=== PATIENT | female | born 1965 | race Caucasian/White ===

== ENCOUNTER 2020-06-09 13:25 | Observation (INO) ==
[2020-06-09 13:52] LABS: Appearance Urine Clear (Clear); Bilirubin Urine Negative (Negative); Blood Urine 3+ (Negative); Color Urine Yellow; Epithelial Cell Urine Auto >30 /lpf (0-5); Glucose Urine UA Negative (Negative); Ketones Urine Negative (Negative); Leukocyte Esterase Urine Negative (Negative); Nitrite Urine Negative (Negative); Protein Urine 2+ (Negative); Specific Gravity Urine 1.011 (1.000-1.030); Urobilinogen Urine Negative (Negative); pH Urine 6.5 (4.5-7.5)
[2020-06-09 14:18] LABS: Bacteria Urine Automated 1+ (Negative)
[2020-06-09] MEDS ORDERED: SODIUM CHLORIDE 0.9% 1000ML 1,000 ML IV ONE (14:59)
[2020-06-09] MEDS ORDERED: MoRPHine SULFATE 10 MG/ML CARP/VIAL IV STA ×3 (14:59→18:11)
[2020-06-09] MEDS ORDERED: ONDANSETRON INJ 2 MG/ML 2 ML VIAL IV STA (14:59)
--- NOTE | 2020-06-09 15:00 | Emergency Department Note ---
Impression & Plan Acute cholecystitis ED Provider Note Name: JAE VALDEZ Age: 55 Sex: F Arrives Via: Walk-In Informant: Patient ED Provider: Kehinde Mcmullen MD Chief Complaint: RUQ pain Impression: Acute Cholecystitis Medical Decision Makin yr old pleasant female with history HTN arrives with acute RUQ pain on and off for last few days though acutely worse last 12 hours. Better with IV morphine, fluids. Labs unremarkable. CT concerning for acute cholecystitis and thus US obtained which was non-definitive as well though not significant well thickening or edema. Repeat exams with continued RUQ TTP and needs for IV morphine. Reviewed with gen surg who evaluated patient and will take her to OR in am. Hospitalist in to eval for hospitalization and patient comfortable with plan. IV mefoxin for coverage. Triage/Nursing Notes reviewed by Me Differentials:Cholecystitis, Renal colic, Pancreatitis, Aortic issues, pud/gastritis, ACS, amongst other pathologies. Vital Signs: reviewed and remarkable for no significant abnormalities Interventions: Morphine 6mg IV x 3, zofran 4mg IV, nss bolus IV, Mefoxin 2gm IV Labs:Reviewed and remarkable for no significant abnormalities Imaging:See Record. CT a/p w IV con, US GB: Distended GB with sludge, questionable wall thickening no edema Consults:Dr Selena King Hospitalist Dr Ambrose Laurent Gen Surg Plan: Disposition:Hospitalization. Condition: Good History of Present Illness:55 yr old arrives for evaluation of right flank pain. Notes vague right sided pain for the last month or so with mid back pain for several months. Over the last few days rapidly worsening right flank pain radiating to RLQ and to epigastrium. Mild associated nausea. Ex smoker no known history of aortic aneurysm. Denies cp, sob, syncope, fevers, chills, vomiting, blood in stool, urinary symptoms, leg swelling, rashes, nor other symptoms. Taking motring and tylenol with mild improvement for pain. Seen at [facility] and sent to ED. History HTN. Family history Lung CA and HTN. Nothing makes pain better. Movement makes worse. No trauma, injuries, falls. ROS: See above HPI for pertinent positives & negatives. A total of 10 systems reviewed and were otherwise negative. Past Medical History:HTN, back pain Past Surgical History:pack surgery Family History:Father Lung CA, mother HTN/CAD Social History:Grandmother of 8, no smoking, occasional etoh, no drugs. Home Medications:See Below Allergies:Augmentin Vitals:Blood Pressure: 172/99, Pulse 89, RR 20, T 36.6C, O2 99% on RA Physical Exam: GENERAL: Patient is Uncomfortable appearing and in moderate distress. EYES: No scleral icterus, unremarkable pupils. ENT: Mucous membranes moist, no nasal congestion. NECK: No masses appreciated, nomeningismus, trachea is midline. RESPIRATORY: No dyspnea. Clear to auscultation and equal bilaterally. No wheeze, no rhonchi. CARDIOVASCULAR: Regular rate and rhythm.No murmurs, rubs, gallops appreciated. GASTROINTESTINAL: Vague Right abdominal TTP, mild epigastric TTP, otherwise ab domen soft, non-tender, no peritonitis.Bowel sounds positive.No masses appreciated. BACK: No midline tenderness, no CVA tenderness EXTREMITIES: Normal motion all extremities, no cyanosis, no edema. NEUROLOGIC: Alert and oriented, no acute motor or sensory deficits, no focal weakness, cranial nerves grossly intact. SKIN: No rash, no jaundice, no diaphoresis. PSYCH: Appropriate GCS: 15 ED Course: Times/Reassessments: Stable though continued return of RUQ pain and TTP requiring further pain medications Kehinde Mcmullen MD Past Med/Surg History Medical History (Updated 06/09/20 @ 20:46 by John Patel MD) Hypertension Obesity Surgical History (Updated 06/09/20 @ 19:48 by Luke Boggs MD) History of endometrial ablation 1999 Lumbar disc disorder 2 discs during one procedure, 1994 Social History (Updated 06/09/20 @ 19:48 by Luke Boggs MD) Smoking Status: Never smoker Hx Alcohol Use: Yes (occasional) Hx Substance Use: No Feels Safe at Home: Yes Allergies Allergies Allergy/AdvReac Type Severity Reaction Status Date / Time amoxicillin [From Augmentin] Allergy Intermediate Bloody Verified 06/09/20 15:38 diarrhea clavulanic acid Allergy Intermediate Bloody Verified 06/09/20 15:38 [From Augmentin] diarrhea Home Meds Home Medications Medication Instructions Recorded Confirmed acetaminophen [Tylenol Extra 1,000 mg PO Q6H PRN 06/09/20 06/09/20 Strength] amlodipine 5 mg PO QAM 06/09/20 06/09/20 apple cider vinegar 500 mg PO QAM 06/09/20 06/09/20 ascorbic acid (vitamin C) [Vitamin 500 mg PO QAM 06/09/20 06/09/20 C] baclofen 10 mg PO HS PRN 06/09/20 06/09/20 cholecalciferol (vitamin D3) 125 mcg PO QAM 06/09/20 06/09/20 [Vitamin D3] folic acid 400 mcg PO QAM 06/09/20 06/09/20 hydrochlorothiazide 25 mg PO QAM 06/09/20 06/09/20 ibuprofen 800 mg PO Q8H PRN 06/09/20 06/09/20 lactobacillus combination no.4 0 mmu cells PO QAM 06/09/20 06/09/20 [Probiotic] losartan 100 mg PO QAM 06/09/20 06/09/20 multivit with min-folic acid [One 1 tab PO QAM 06/09/20 06/09/20 Daily Womens 50 Plus] omeprazole 20 mg PO QAM 06/09/20 06/09/20 zinc 50 mg PO QAM 06/09/20 06/09/20 Results & Data (ED) Vital Signs Vital Signs - 24 hr 06/09/20 13:36 06/09/20 15:25 06/09/20 16:47 Temperature 36.6 C Temperature Source Oral Pulse Rate 89 Pulse Rate [Left] 83 85 Respiratory Rate 20 16 16 Respiratory Effort / Characteristics Non-Labored Non-Labored Spontaneous Non-Labored Spontaneous Respiratory Depth Normal Normal Normal Blood Pressure 172/99 H Blood Pressure [Left Arm] 145/90 H 147/95 H Blood Pressure Mean 123 Blood Pressure Mean [Left Arm] 108 112 Blood Pressure Position [Left Arm] Lying Lying Pulse Oximetry 99 97 97 Oxygen Delivery Method Room Air Room Air Room Air Sepsis Recent Fever Within 48 Hours No Sepsis New/Unexplained Change in Mental Status N/A Sepsis Action Taken by Nursing No Action Required 06/09/20 18:36 06/09/20 20:01 Temperature Temperature Source Pulse Rate Pulse Rate [Left] 83 86 Respiratory Rate 18 18 Respiratory Effort / Characteristics Non-Labored Spontaneous Respiratory Depth Normal Blood Pressure Blood Pressure [Left Arm] 144/102 H 138/79 Blood Pressure Mean Blood Pressure Mean [Left Arm] 116 98 Blood Pressure Position [Left Arm] Lying Pulse Oximetry 96 98 Oxygen Delivery Method Room Air Room Air Sepsis Recent Fever Within 48 Hours Sepsis New/Unexplained Change in Mental Status Sepsis Action Taken by Nursing Laboratory Data Result diagrams: 06/09/20 15:25 06/09/20 15:25 Lab Results 06/09/20 06/09/20 06/09/20 Range/Units 13:40 15:25 15:25 WBC 10.17 (4.8-10.8) K/uL RBC 4.43 (4.2-5.4) M/uL Hgb 13.8 (12.0-16.0) g/dL Hct 40.3 (37-47) % MCV 91.0 (80-100) fL MCH 31.2 (25-34) pg MCHC 34.2 (32-36) g/dL RDW Std Deviation 44.8 (36.4-46.3) fL RDW Coeff of Frandy 13.6 (11.5-14.5) % Plt Count 253 (130-400) K/uL MPV 10.5 H (7.4-10.4) fL Immature Gran % (Auto) 0.4 % Neut % (Auto) 78.4 % Lymph % (Auto) 16.6 % [place] % (Auto) 3.7 % Eos % (Auto) 0.8 % Baso % (Auto) 0.1 % Neut # (Auto) 7.97 H (1.4-6.5) K/uL Lymph # (Auto) 1.69 (1.2-3.4) K/uL [place] # (Auto) 0.38 (0.11-0.59) K/uL Eos # (Auto) 0.08 (0-0.5) K/uL Baso # (Auto) 0.01 (0-0.2) K/uL Immature Gran # (Auto) 0.04 H (0.00-0.02) K/uL Sodium 134 L (136-145) mmol/L Potassium 3.6 (3.5-5.1) mmol/L Chloride 99 (98-107) mmol/L Carbon Dioxide 30 (21-32) mmol/L Anion Gap 5.0 (3-11) BUN 14 (7-18) mg/dl Creatinine 0.70 (0.6-1.2) mg/dl Est Cr Clr Drug Dosing 94.4 ml/min Est GFR ( Amer) 114.6 Est GFR (Non-Af Amer) 98.9 BUN/Creatinine Ratio 19.7 (10-20) Glucose 126 H (70-99) mg/dl Calcium 9.3 (8.5-10.1) mg/dl Total Bilirubin 0.9 (0.2-1) mg/dl Direct Bilirubin (0-0.2) mg/dl AST 21 (15-37) U/L ALT 25 (12-78) U/L Alkaline Phosphatase 91 (45-117) U/L Troponin I < 0.015 (0-0.045) ng/ml Total Protein 8.8 H (6.4-8.2) gm/dl Albumin 4.0 (3.4-5.0) gm/dl Lipase 103 (73-393) U/L Specimen Hemolysis Urine Color Yellow Urine Appearance Clear (Clear) Urine pH 6.5 (4.5-7.5) Ur Specific [place] 1.011 (1.000-1.030) Urine Protein 2+ H (Negative) Urine Glucose (UA) Negative (Negative) Urine Ketones Negative (Negative) Urine Blood 3+ H (Negative) Urine Nitrite Negative (Negative) Urine Bilirubin Negative (Negative) Urine Urobilinogen Negative (Negative) Ur Leukocyte Esterase Negative (Negative) Urine WBC (Auto) 1-5 (0-5) /hpf Urine RBC (Auto) 5-10 H (0-4) /hpf U Hyaline Cast (Auto) 1-5 (0-5) /lpf U Epithel Cells (Auto) >30 H (0-5) /lpf Urine Bacteria (Auto) 1+ H (Negative) Urine Yeast Not Reportable SARS-CoV-2 Ag (Rapid) (Negative) 06/09/20 06/09/20 Range/Units 16:53 Unknown WBC (4.8-10.8) K/uL RBC (4.2-5.4) M/uL Hgb (12.0-16.0) g/dL Hct (37-47) % MCV (80-100) fL MCH (25-34) pg MCHC (32-36) g/dL RDW Std Deviation (36.4-46.3) fL RDW Coeff of Frandy (11.5-14.5) % Plt Count (130-400) K/uL MPV (7.4-10.4) fL Immature Gran % (Auto) % Neut % (Auto) % Lymph % (Auto) % [place] % (Auto) % Eos % (Auto) % Baso % (Auto) % Neut # (Auto) (1.4-6.5) K/uL Lymph # (Auto) (1.2-3.4) K/uL [place] # (Auto) (0.11-0.59) K/uL Eos # (Auto) (0-0.5) K/uL Baso # (Auto) (0-0.2) K/uL Immature Gran # (Auto) (0.00-0.02) K/uL Sodium (136-145) mmol/L Potassium (3.5-5.1) mmol/L Chloride (98-107) mmol/L Carbon Dioxide (21-32) mmol/L Anion Gap (3-11) BUN (7-18) mg/dl Creatinine (0.6-1.2) mg/dl Est Cr Clr Drug Dosing ml/min Est GFR ( Amer) Est GFR (Non-Af Amer) BUN/Creatinine Ratio (10-20) Glucose (70-99) mg/dl Calcium (8.5-10.1) mg/dl Total Bilirubin (0.2-1) mg/dl Direct Bilirubin 0.1 (0-0.2) mg/dl AST (15-37) U/L ALT (12-78) U/L Alkaline Phosphatase (45-117) U/L Troponin I (0-0.045) ng/ml Total Protein (6.4-8.2) gm/dl Albumin (3.4-5.0) gm/dl Lipase (73-393) U/L Specimen Hemolysis Urine Color Urine Appearance (Clear) Urine pH (4.5-7.5) Ur Specific [place] (1.000-1.030) Urine Protein (Negative) Urine Glucose (UA) (Negative) Urine Ketones (Negative) Urine Blood (Negative) Urine Nitrite (Negative) Urine Bilirubin (Negative) Urine Urobilinogen (Negative) Ur Leukocyte Esterase (Negative) Urine WBC (Auto) (0-5) /hpf Urine RBC (Auto) (0-4) /hpf U Hyaline Cast (Auto) (0-5) /lpf U Epithel Cells (Auto) (0-5) /lpf Urine Bacteria (Auto) (Negative) Urine Yeast SARS-CoV-2 Ag (Rapid) Negative (Negative) Administered Medications Discontinued Medications Sodium Chloride (Nss 1000ml) 1,000 mls @ 999 mls/hr IV .Q1H1M ONE Stop: 06/09/20 15:59 Last Infusion: 06/09/20 16:32 Dose: 0 mls/hr Documented by: [id number] Admin: 06/09/20 15:26 Dose: 999 mls/hr Documented by: [id number] Cefoxitin Sodium (Mefoxin) 2,000 mg in 60 mls @ 100 mls/hr IV NOW STA Stop: 06/09/20 18:52 Last Admin: 06/09/20 18:35 Dose: 100 mls/hr Documented by: [id number] Metronidazole (Flagyl) 500 mg in 100 mls @ 100 mls/hr IV NOW STA Stop: 06/09/20 20:01 Last Admin: 06/09/20 20:00 Dose: 100 mls/hr Documented by: [id number] Ioversol (Ioversol 100ml) 90 ml IV ONCE ONE Stop: 06/09/20 16:45 Last Admin: 06/09/20 16:44 Dose: 90 ml Documented by: [id number] Morphine Sulfate (Morphine Sulfate 10 Mg/Ml Carp/Vial) 6 mg IV NOW STA Stop: 06/09/20 15:00 Last Admin: 06/09/20 15:26 Dose: 6 mg Documented by: [id number] Morphine Sulfate (Morphine Sulfate 10 Mg/Ml Carp/Vial) 6 mg IV NOW STA Stop: 06/09/20 16:20 Last Admin: 06/09/20 16:24 Dose: 6 mg Documented by: [id number] Morphine Sulfate (Morphine Sulfate 10 Mg/Ml Carp/Vial) 6 mg IV NOW STA Stop: 06/09/20 18:12 Last Admin: 06/09/20 18:35 Dose: 6 mg Documented by: [id number] Ondansetron HCl (Ondansetron Inj 2 Mg/Ml 2 Ml Vial) 4 mg IV NOW STA Stop: 06/09/20 15:00 Last Admin: 06/09/20 15:26 Dose: 4 mg Documented by: [id number] Discharge Plan Visit Data Chief Complaint: Abdominal Pain Stated Complaint: AB/BACK PAIN ED Provider: Kehinde Mcmullen Discharge Problem: Acute cholecystitis Forms Stand Alone Forms: [facility] Prescriptions Prescriptions: No Action amlodipine 5 mg Tablet 5 mg PO QAM RF: 0 folic acid 400 mcg Tablet 400 mcg PO QAM RF: 0 acetaminophen [Tylenol Extra Strength] 500 mg Tablet 1,000 mg PO Q6H PRN (Reason: Pain) RF: 0 ascorbic acid (vitamin C) [Vitamin C] 500 mg Tablet 500 mg PO QAM RF: 0 baclofen 10 mg Tablet 10 mg PO HS PRN (Reason: Muscle Relaxer) RF: 0 ibuprofen 200 mg Tablet 800 mg PO Q8H PRN (Reason: Pain) RF: 0 zinc 50 mg Tablet 50 mg PO QAM RF: 0 hydrochlorothiazide 25 mg Tablet 25 mg PO QAM RF: 0 losartan 100 mg Tablet 100 mg PO QAM RF: 0 apple cider vinegar 500 mg Tablet 500 mg PO QAM RF: 0 One Daily Womens 50 Plus 0.4 mg Tablet 1 tab PO QAM RF: 0 omeprazole 20 mg Tablet,Delayed Release (Dr/Ec) 20 mg PO QAM RF: 0 cholecalciferol (vitamin D3) [Vitamin D3] 125 mcg (5,000 unit) Tablet 125 mcg PO QAM RF: 0 Probiotic 3 billion cell Capsule 0 mmu cells PO QAM RF: 0
--- NOTE | 2020-06-09 15:14 | XRay Report ---
XR chest 1V portable HISTORY: 55 years-old Female Right flank pain acute right-sided flank pain COMPARISON: None TECHNIQUE: Portable AP view of the chest FINDINGS: Cardiomediastinal and hilar silhouettes are within normal limits. No pneumothorax, pleural effusion, airspace consolidation or overt pulmonary edema. Mild degenerative changes of the shoulders and spine . Bones appear grossly intact. IMPRESSION: No acute process. ACT 112: Negative or not required by law. The above report was generated using voice recognition software. It may contain grammatical, syntax o r spelling errors. Electronically signed by: Logan Silva M.D. 06/09/2020 3:13 PM
[2020-06-09 15:40] LABS: Basophils # (auto) 0.01 K/uL (0-0.2); Basophils % (auto) 0.1 %; Eosinophils # (auto) 0.08 K/uL (0-0.5); Eosinophils % (auto) 0.8 %; Hematocrit (blood only) 40.3 % (37-47); Hemoglobin 13.8 g/dL (12.0-16.0); Immature Granulocytes # (auto) 0.04 K/uL (0.00-0.02); Immature Granulocytes % (auto) 0.4 %; Lymphocytes # (auto) 1.69 K/uL (1.2-3.4); Lymphocytes % (auto) 16.6 %; Mean Corpuscular Hemoglobin 31.2 pg (25-34); Mean Corpuscular Hgb Conc 34.2 g/dL (32-36); Mean Platelet Volume 10.5 fL (7.4-10.4); Monocytes # (auto) 0.38 K/uL (0.11-0.59); Monocytes % (auto) 3.7 %; Neutrophils # (auto) 7.97 K/uL (1.4-6.5); Neutrophils % (auto) 78.4 %; Platelet Count 253 K/uL (130-400); RDW Coefficient of Variation 13.6 % (11.5-14.5); RDW Standard Deviation 44.8 fL (36.4-46.3); Red Blood Count 4.43 M/uL (4.2-5.4); White Blood Count 10.17 K/uL (4.8-10.8)
[2020-06-09 16:12] LABS: Alanine Aminotransferase 25 U/L (12-78); Alkaline Phosphatase 91 U/L (45-117); Aspartate Aminotransferase 21 U/L (15-37); BUN Creatinine Ratio 19.7 (10-20); Bilirubin,Total 0.9 mg/dl (0.2-1); Blood Urea Nitrogen 14 mg/dl (7-18); Calcium 9.3 mg/dl (8.5-10.1); Carbon Dioxide 30 mmol/L (21-32); Chloride 99 mmol/L (98-107); Creatinine Clr Calc Pharmacy 94.4 ml/min; Est GFR (African American) 114.6; Est GFR (Non-African American) 98.9; Glucose 126 mg/dl (70-99); Lipase 103 U/L (73-393); Potassium 3.6 mmol/L (3.5-5.1); Sodium 134 mmol/L (136-145); Total Protein 8.8 gm/dl (6.4-8.2); Troponin I < 0.015 ng/ml (0-0.045)
[2020-06-09] MEDS ORDERED: IOVERSOL 100ml IV ONE (16:44)
--- NOTE | 2020-06-09 17:01 | CT Scan Report ---
ABDOMEN AND PELVIS CT WITH IV CONTRAST CT DOSE: 1099.33 mGy.cm HISTORY: Acute right flank and epigastric pain right flank and epigastric pain TECHNIQUE: Multiaxial CT images of the abdomen and pelvis were performed following the IV administrat ion of 90 cc of Optiray 320, A dose lowering technique was utilized adhering to the principles of AL AXEL. COMPARISON STUDY: Chest radiograph of same day FINDINGS: Partially imaged 3 mm solid nodule of the right lower lobe, image 1 series 3. There is no p neumatosis or pneumoperitoneum. Imaged inferior cardiac chambers are unremarkable. The spleen, pancre as and adrenal glands are unremarkable. Moderately distended gallbladder with cholelithiasis and equi vocal gallbladder wall thickening. No significant pericholecystic stranding, biliary ductal dilation or choledocholithiasis. There is suggestion of hepatic steatosis. Patency of the hepatic and portal v eins. Unremarkable kidneys. No hydronephrosis. Unremarkable urinary bladder, uterus and adnexa. Calcified plaque of the abdominal aorta without aneurysm. No adenopathy. Mild nonspecific distal esophageal wal l thickening. Mild colonic diverticulosis. No bowel obstruction or bowel wall thickening. The visuali zed appendix appears noninflamed however is not seen in its entirety. No ascites or mesenteric inflam mation. Unremarkable soft tissues. Degenerative changes of the spine, pelvis and hips. No acute fract ure. IMPRESSION: 1. Cholelithiasis with moderate gallbladder distention and equivocal gallbladder wall thickening. Cor relation with right upper quadrant abdominal ultrasound recommended to exclude acute cholecystitis. 2. No bowel obstruction or bowel wall thickening. 3. Mild colonic diverticulosis without acute diverticulitis. 4. Mild distal esophageal wall thickening may reflect esophagitis. ACT 112: Negative or not required by law. The above report was generated using voice recognition software. It may contain grammatical, syntax o r spelling errors. Electronically signed by: Logan Silva M.D. 06/09/2020 5:00 PM
--- NOTE | 2020-06-09 17:46 | Ultrasound Report ---
US gallbladder HISTORY: 55 years-old Female RUQ pain, abnormal gallbladder acute right upper quadrant abdominal kvng n with cholelithiasis COMPARISON: CT abdomen and pelvis of same day TECHNIQUE: Multiple real-time sonographic images of the abdominal right upper quadrant were obtained assessing grayscale appearance and color flow FINDINGS: Visualized pancreas is unremarkable. Echogenic appearance of the liver with poor through transmission . No hepatic mass lesion or ascites. Imaged right kidney is unremarkable without hydronephrosis. Distended gallbladder with numerous layering shadowing gallstones. The gallbladder wall is normal nash suring 2 mm. No pericholecystic fluid identified. Normal common bile duct, 4 mm. Sonographic Mcknight s ign was unable to be assessed secondary to recent pain medication administered to the patient. IMPRESSION: 1. Cholelithiasis with mild gallbladder distention. There is no gallbladder wall thickening or perich olecystic fluid identified. If there is further clinical concern for acute cholecystitis, a follow-up nuclear medicine hepatobiliary scan may be considered. 2. No biliary ductal dilation. 3. Hepatic steatosis. ACT 112: Negative or not required by law. The above report was generated using voice recognition software. It may contain grammatical, syntax o r spelling errors. Electronically signed by: Logan Silva M.D. 06/09/2020 5:45 PM
[2020-06-09] MEDS ORDERED: cefOXitin 2,000 MG/60 ML BAG IV STA (18:17)
--- NOTE | 2020-06-09 18:59 | History & Physical Report ---
Date of Service June 09, 2020 Assessment & Plan (1) Acute cholecystitis: History of Present Illness Primary Care Provider: NO PCP Middle of back Thursday, middle of week starting coming around her front. Stomach hurting last 2 days. 5-6 months ago had similar pain. Stomach virus. No fever or chills. to today not eating much as stomach would hurt. Stomach ulcers since she was 11 years old. ibuprofen yesterday 3-4 tablets every 4 hours. tyelenol 1000mg as needed 2-3 times a day. Allergies Allergy/AdvReac Type Severity Reaction Status Date / Time amoxicillin [From Augmentin] Allergy Intermediate Bloody Verified 06/09/20 15:38 diarrhea clavulanic acid Allergy Intermediate Bloody Verified 06/09/20 15:38 [From Augmentin] diarrhea Home Medications Medication Instructions Recorded Confirmed Type acetaminophen [Tylenol Extra 1,000 mg PO Q6H PRN 06/09/20 06/09/20 History Strength] amlodipine 5 mg PO QAM 06/09/20 06/09/20 History apple cider vinegar 500 mg PO QAM 06/09/20 06/09/20 History ascorbic acid (vitamin C) [Vitamin 500 mg PO QAM 06/09/20 06/09/20 History C] baclofen 10 mg PO HS PRN 06/09/20 06/09/20 History cholecalciferol (vitamin D3) 125 mcg PO QAM 06/09/20 06/09/20 History [Vitamin D3] folic acid 400 mcg PO QAM 06/09/20 06/09/20 History hydrochlorothiazide 25 mg PO QAM 06/09/20 06/09/20 History ibuprofen 800 mg PO Q8H PRN 06/09/20 06/09/20 History lactobacillus combination no.4 0 mmu cells PO QAM 06/09/20 06/09/20 History [Probiotic] losartan 100 mg PO QAM 06/09/20 06/09/20 History multivit with min-folic acid [One 1 tab PO QAM 06/09/20 06/09/20 History Daily Womens 50 Plus] omeprazole 20 mg PO QAM 06/09/20 06/09/20 History zinc 50 mg PO QAM 06/09/20 06/09/20 History Past Med/Surg History Social History Smoking Status: Never smoker Feels Safe at Home: Yes Results & Data Results & Data ([facility]) Vital Signs (Past 12 Hours) Vital Signs Temp Pulse Pulse Resp BP BP Pulse Ox 06/09/20 18:36 83 18 144/102 H 96 06/09/20 16:47 85 16 147/95 H 97 06/09/20 15:25 83 16 145/90 H 97 06/09/20 13:36 36.6 C 89 20 172/99 H 99 PG Care Time/CCT Total # of Minutes Spent Total Time Spent with Patient: Total time spent is greater than 50% in coordination of care (as documented) at patient's floor/unit and/or counseling patient: Coding Diagnoses Acute cholecystitis K81.0
[2020-06-09] MEDS ORDERED: metroNIDAZOLE 500 MG/100 ML BAG IV STA (19:02)
[2020-06-09] MEDS ORDERED: LABETALOL HCL IV 5 MG/ML 20ML IV PRN (20:47)
[2020-06-09] MEDS ORDERED: ONDANSETRON INJ 2 MG/ML 2 ML VIAL IV PRN (20:47)
[2020-06-09] MEDS ORDERED: ePHEDrine sulfate 50 MG/ML AMP IV PRN (20:47)
[2020-06-09] MEDS ORDERED: fentaNYL citrate 100 MCG/2 ML VIAL IV PRN (20:47)
[2020-06-09] MEDS ORDERED: PHENYLEPHRINE 100MCG/ML 5ML SYR IV PRN (20:47)
[2020-06-09] MEDS ORDERED: HYDROmorphone INJ 1 MG/ML SYRINGE IV PRN (20:47)
[2020-06-09] MEDS ORDERED: MEPERIDINE HCL 25 MG/ML CARP/VIAL IV PRN (20:47)
[2020-06-09] MEDS ORDERED: ATROPINE SULFATE 0.1 MG/ML 10ML SYR IV PRN (20:47)
[2020-06-09] MEDS ORDERED: fentaNYL citrate 100 MCG/2 ML VIAL ONE ×2 (20:52→23:01)
[2020-06-09] MEDS ORDERED: MIDAZOLAM HCL 1 MG/ML 2ML VIAL ONE (20:53)
[2020-06-09] MEDS ORDERED: PROPOFOL IV EMULSION 10 MG/ML 20 ML VIAL IV ONE (21:01)
[2020-06-09] MEDS ORDERED: LIDOCAINE HCL 2% 2 ML VIAL/AMP(20MG/ML) INFIL ONE (21:02)
[2020-06-09] MEDS ORDERED: NEOSTIGMINE METHYLSULFATE 5 MG/5 ML SYR ONE (21:02)
[2020-06-09] MEDS ORDERED: ONDANSETRON INJ 2 MG/ML 2 ML VIAL ONE (21:02)
[2020-06-09] MEDS ORDERED: ROCURONIUM BROMIDE 10 MG/ML 5 ML VIAL IV ONE ×5 (21:02→21:50)
[2020-06-09] MEDS ORDERED: BUPIVACAINE 0.5 % 5 MG/1 ML MPF 30ML VIAL ONE (21:02)
[2020-06-09] MEDS ORDERED: GLYCOPYRROLATE 0.2 MG/ML VIAL ONE (21:02)
[2020-06-09] MEDS ORDERED: DEXAMETHASONE SOD INJ 4 MG/ML VIAL ONE ×2 (21:02→21:50)
[2020-06-09] MEDS ORDERED: HEPARIN SOD (PORCINE) 5,000 UNITS/ML VIAL ONE (21:03)
--- NOTE | 2020-06-09 21:23 | Anesthesiology Consultation ---
Date of Service June 09, 2020 Covid 19 negative today. Assessment & Plan (1) Encounter for pre-operative examination: Chart Review Chart Review: Acceptable Risk for Surgery and Patient NOT seen in Pre Admission Testing Consults Requested none History Surgery Operation Date: 06/09/20 21:20 Proposed Procedures p Laparoscopic Cholecystectomy - Luke Boggs MD Height/Weight Height: 5 ft 1 in Weight: 89.2 kg Allergies Allergy/AdvReac Type Severity Reaction Status Date / Time amoxicillin [From Augmentin] Allergy Intermediate Bloody Verified 06/09/20 15:38 diarrhea clavulanic acid Allergy Intermediate Bloody Verified 06/09/20 15:38 [From Augmentin] diarrhea Medications Home Medications Medication Instructions Recorded Confirmed Last Taken acetaminophen [Tylenol Extra 1,000 mg PO Q6H PRN 06/09/20 06/09/20 Unknown Strength] amlodipine 5 mg PO QAM 06/09/20 06/09/20 06/09/20 apple cider vinegar 500 mg PO QAM 06/09/20 06/09/20 06/09/20 ascorbic acid (vitamin C) [Vitamin 500 mg PO QAM 06/09/20 06/09/20 06/09/20 C] baclofen 10 mg PO HS PRN 06/09/20 06/09/20 Unknown cholecalciferol (vitamin D3) 125 mcg PO QAM 06/09/20 06/09/20 06/09/20 [Vitamin D3] folic acid 400 mcg PO QAM 06/09/20 06/09/20 06/09/20 hydrochlorothiazide 25 mg PO QAM 06/09/20 06/09/20 06/09/20 ibuprofen 800 mg PO Q8H PRN 06/09/20 06/09/20 Unknown lactobacillus combination no.4 0 mmu cells PO QAM 06/09/20 06/09/20 06/09/20 [Probiotic] losartan 100 mg PO QAM 06/09/20 06/09/20 06/09/20 multivit with min-folic acid [One 1 tab PO QAM 06/09/20 06/09/20 06/09/20 Daily Womens 50 Plus] omeprazole 20 mg PO QAM 06/09/20 06/09/20 06/09/20 zinc 50 mg PO QAM 06/09/20 06/09/20 06/09/20 NPO Date Last Intake of Fluids: 06/09/20 Time Last Intake of Fluids: 14:00 Date Last Intake of Solids: 06/09/20 Time Last Intake of Solids: 09:00 Past Medical History Medical History (Updated 06/09/20 @ 21:23 by John Patel MD) GERD (gastroesophageal reflux disease) Hypertension Obesity PONV (postoperative nausea and vomiting) Past Surgical History Surgical History History of endometrial ablation 1999 Lumbar disc disorder 2 discs during one procedure, 1994 Social History Smoking Status: Never smoker Hx Alcohol Use: Yes (occasional) Hx Substance Use: No Physical Exam Vital Signs Last Vital Signs Temp 36.6 C 06/09/20 13:36 Pulse 86 06/09/20 20:01 Resp 18 06/09/20 20:01 BP 138/79 06/09/20 20:01 Pulse Ox 98 06/09/20 20:01 Testing Laboratory Results 06/09/20 15:25 06/09/20 15:25 Urine Color Yellow 06/09/20 13:40 Urine Appearance Clear (Clear) 06/09/20 13:40 Urine pH 6.5 (4.5-7.5) 06/09/20 13:40 Ur Specific [place] 1.011 (1.000-1.030) 06/09/20 13:40 Urine Protein 2+ (Negative) H 06/09/20 13:40 Urine Glucose (UA) Negative (Negative) 06/09/20 13:40 Urine Ketones Negative (Negative) 06/09/20 13:40 Urine Nitrite Negative (Negative) 06/09/20 13:40 Ur Leukocyte Esterase Negative (Negative) 06/09/20 13:40 Urine WBC (Auto) 1-5 /hpf (0-5) 06/09/20 13:40 Urine RBC (Auto) 5-10 /hpf (0-4) H 06/09/20 13:40 U Hyaline Cast (Auto) 1-5 /lpf (0-5) 06/09/20 13:40 U Epithel Cells (Auto) >30 /lpf (0-5) H 06/09/20 13:40 Urine Bacteria (Auto) 1+ (Negative) H 06/09/20 13:40 Electrocardiogram Date: 06/09/20 Findings: + NSR @ (74) and + LVH (QRS widening) cannot rule out septal infarct
[2020-06-09] MEDS ORDERED: SCOPOLAMINE 1.5 MG TDSY TD ONE ×2 (21:27→21:29)
--- NOTE | 2020-06-09 21:31 | History & Physical Report ---
Date of Service June 09, 2020 Assessment & Plan (1) Biliary colic: This patient has right upper quadrant pain radiating to her back with cholelithiasis consistent with biliary colic. The pain was not resolving with analgesics. I have recommended laparoscopic cholecystectomy. I explained her the procedure and the possible need to convert to an open procedure. I explained some of the possible complications associated with the procedures and answered her questions. She has signed a consent form. History of Present Illness Chief Complaint: Right upper quadrant abdominal pain Primary Care Provider: NO PCP This is a 55-year-old female who presented to the emergency room with a complaint of abdominal pain centered in the right upper quadrant. It began 2 days ago. The severity waxes and wanes but was sharp. It did radiate through to her back. She had nausea but did not vomit. She has had no fever or chills. She denies change in her bowel habits. She denies dysuria and hematuria. She stated that she has had similar discomfort about a month ago but the severity was much worse. That was associated with nausea and a few episodes of vomiting but resolved spontaneously. She has no history of jaundice hepatitis or pancreatitis. Allergies Allergy/AdvReac Type Severity Reaction Status Date / Time amoxicillin [From Augmentin] Allergy Intermediate Bloody Verified 06/09/20 15:38 diarrhea clavulanic acid Allergy Intermediate Bloody Verified 06/09/20 15:38 [From Augmentin] diarrhea Home Medications Medication Instructions Recorded Confirmed Type acetaminophen [Tylenol Extra 1,000 mg PO Q6H PRN 06/09/20 06/09/20 History Strength] amlodipine 5 mg PO QAM 06/09/20 06/09/20 History apple cider vinegar 500 mg PO QAM 06/09/20 06/09/20 History ascorbic acid (vitamin C) [Vitamin 500 mg PO QAM 06/09/20 06/09/20 History C] baclofen 10 mg PO HS PRN 06/09/20 06/09/20 History cholecalciferol (vitamin D3) 125 mcg PO QAM 06/09/20 06/09/20 History [Vitamin D3] folic acid 400 mcg PO QAM 06/09/20 06/09/20 History hydrochlorothiazide 25 mg PO QAM 06/09/20 06/09/20 History ibuprofen 800 mg PO Q8H PRN 06/09/20 06/09/20 History lactobacillus combination no.4 0 mmu cells PO QAM 06/09/20 06/09/20 History [Probiotic] losartan 100 mg PO QAM 06/09/20 06/09/20 History multivit with min-folic acid [One 1 tab PO QAM 06/09/20 06/09/20 History Daily Womens 50 Plus] omeprazole 20 mg PO QAM 06/09/20 06/09/20 History zinc 50 mg PO QAM 06/09/20 06/09/20 History Past Med/Surg History Medical History (Updated 06/09/20 @ 21:32 by Luke Boggs MD) GERD (gastroesophageal reflux disease) Hypertension Obesity PONV (postoperative nausea and vomiting) Surgical History History of endometrial ablation 1999 Lumbar disc disorder 2 discs during one procedure, 1994 Social History (Updated 06/09/20 @ 19:48 by Luke Boggs MD) Smoking Status: Never smoker Hx Alcohol Use: Yes (occasional) Hx Substance Use: No Feels Safe at Home: Yes Review of Systems Review of Systems: All systems reviewed & are unremarkable except as noted in HPI & below Physical Exam Constitutional: no acute distress Neck: trachea midline Respiratory: normal respiratory effort, lungs clear to auscultation Cardiovascular: Rate/Rhythm: regular rate and regular rhythm Gastrointestinal (Abdomen): Inspection/Auscultation: normal bowel sounds; abdomen not distended Percussion/Palpation: + abdomen tender (Right subcostal tenderness that is mild and to moderate palpation) and abdomen soft; no abdominal mass Skin: no rashes, warm and dry Lymphatic: no cervical lymphadenopathy Results & Data Results & Data ([facility]) Vital Signs (Past 12 Hours) Vital Signs Temp Pulse Pulse Resp BP BP Pulse Ox 06/09/20 20:01 86 18 138/79 98 06/09/20 18:36 83 18 144/102 H 96 06/09/20 16:47 85 16 147/95 H 97 06/09/20 15:25 83 16 145/90 H 97 06/09/20 13:36 36.6 C 89 20 172/99 H 99 Laboratory Results 06/09/20 06/09/20 06/09/20 Range/Units Unknown 16:53 15:25 WBC (4.8-10.8) K/uL RBC (4.2-5.4) M/uL Hgb (12.0-16.0) g/dL Hct (37-47) % MCV (80-100) fL MCH (25-34) pg MCHC (32-36) g/dL RDW Std Deviation (36.4-46.3) fL RDW Coeff of Frandy (11.5-14.5) % Plt Count (130-400) K/uL MPV (7.4-10.4) fL Immature Gran % (Auto) % Neut % (Auto) % Lymph % (Auto) % White % (Auto) % Eos % (Auto) % Baso % (Auto) % Neut # (Auto) (1.4-6.5) K/uL Lymph # (Auto) (1.2-3.4) K/uL White # (Auto) (0.11-0.59) K/uL Eos # (Auto) (0-0.5) K/uL Baso # (Auto) (0-0.2) K/uL Immature Gran # (Auto) (0.00-0.02) K/uL Sodium 134 L (136-145) mmol/L Potassium 3.6 (3.5-5.1) mmol/L Chloride 99 (98-107) mmol/L Carbon Dioxide 30 (21-32) mmol/L Anion Gap 5.0 (3-11) BUN 14 (7-18) mg/dl Creatinine 0.70 (0.6-1.2) mg/dl Est Cr Clr Drug Dosing 94.4 ml/min Est GFR ( Amer) 114.6 Est GFR (Non-Af Amer) 98.9 BUN/Creatinine Ratio 19.7 (10-20) Glucose 126 H (70-99) mg/dl Calcium 9.3 (8.5-10.1) mg/dl Total Bilirubin 0.9 (0.2-1) mg/dl Direct Bilirubin 0.1 (0-0.2) mg/dl AST 21 (15-37) U/L ALT 25 (12-78) U/L Alkaline Phosphatase 91 (45-117) U/L Troponin I < 0.015 (0-0.045) ng/ml Total Protein 8.8 H (6.4-8.2) gm/dl Albumin 4.0 (3.4-5.0) gm/dl Lipase 103 (73-393) U/L Specimen Hemolysis Urine Color Urine Appearance (Clear) Urine pH (4.5-7.5) Ur Specific [place] (1.000-1.030) Urine Protein (Negative) Urine Glucose (UA) (Negative) Urine Ketones (Negative) Urine Blood (Negative) Urine Nitrite (Negative) Urine Bilirubin (Negative) Urine Urobilinogen (Negative) Ur Leukocyte Esterase (Negative) Urine WBC (Auto) (0-5) /hpf Urine RBC (Auto) (0-4) /hpf U Hyaline Cast (Auto) (0-5) /lpf U Epithel Cells (Auto) (0-5) /lpf Urine Bacteria (Auto) (Negative) Urine Yeast SARS-CoV-2 Ag (Rapid) Negative (Negative) 06/09/20 06/09/20 Range/Units 15:25 13:40 WBC 10.17 (4.8-10.8) K/uL RBC 4.43 (4.2-5.4) M/uL Hgb 13.8 (12.0-16.0) g/dL Hct 40.3 (37-47) % MCV 91.0 (80-100) fL MCH 31.2 (25-34) pg MCHC 34.2 (32-36) g/dL RDW Std Deviation 44.8 (36.4-46.3) fL RDW Coeff of Frandy 13.6 (11.5-14.5) % Plt Count 253 (130-400) K/uL MPV 10.5 H (7.4-10.4) fL Immature Gran % (Auto) 0.4 % Neut % (Auto) 78.4 % Lymph % (Auto) 16.6 % White % (Auto) 3.7 % Eos % (Auto) 0.8 % Baso % (Auto) 0.1 % Neut # (Auto) 7.97 H (1.4-6.5) K/uL Lymph # (Auto) 1.69 (1.2-3.4) K/uL White # (Auto) 0.38 (0.11-0.59) K/uL Eos # (Auto) 0.08 (0-0.5) K/uL Baso # (Auto) 0.01 (0-0.2) K/uL Immature Gran # (Auto) 0.04 H (0.00-0.02) K/uL Sodium (136-145) mmol/L Potassium (3.5-5.1) mmol/L Chloride (98-107) mmol/L Carbon Dioxide (21-32) mmol/L Anion Gap (3-11) BUN (7-18) mg/dl Creatinine (0.6-1.2) mg/dl Est Cr Clr Drug Dosing ml/min Est GFR ( Amer) Est GFR (Non-Af Amer) BUN/Creatinine Ratio (10-20) Glucose (70-99) mg/dl Calcium (8.5-10.1) mg/dl Total Bilirubin (0.2-1) mg/dl Direct Bilirubin (0-0.2) mg/dl AST (15-37) U/L ALT (12-78) U/L Alkaline Phosphatase (45-117) U/L Troponin I (0-0.045) ng/ml Total Protein (6.4-8.2) gm/dl Albumin (3.4-5.0) gm/dl Lipase (73-393) U/L Specimen Hemolysis Urine Color Yellow Urine Appearance Clear (Clear) Urine pH 6.5 (4.5-7.5) Ur Specific [place] 1.011 (1.000-1.030) Urine Protein 2+ H (Negative) Urine Glucose (UA) Negative (Negative) Urine Ketones Negative (Negative) Urine Blood 3+ H (Negative) Urine Nitrite Negative (Negative) Urine Bilirubin Negative (Negative) Urine Urobilinogen Negative (Negative) Ur Leukocyte Esterase Negative (Negative) Urine WBC (Auto) 1-5 (0-5) /hpf Urine RBC (Auto) 5-10 H (0-4) /hpf U Hyaline Cast (Auto) 1-5 (0-5) /lpf U Epithel Cells (Auto) >30 H (0-5) /lpf Urine Bacteria (Auto) 1+ H (Negative) Urine Yeast Not Reportable SARS-CoV-2 Ag (Rapid) (Negative) Diagnostic Findings ABDOMEN AND PELVIS CT WITH IV CONTRAST CT DOSE: 1099.33 mGy.cm HISTORY: Acute right flank and epigastric pain right flank and epigastric pain TECHNIQUE: Multiaxial CT images of the abdomen and pelvis were performed following the IV administration of 90 cc of Optiray 320, A dose lowering technique was utilized adhering to the principles of ALARA. COMPARISON STUDY: Chest radiograph of same day FINDINGS: Partially imaged 3 mm solid nodule of the right lower lobe, image 1 series 3. There is no pneumatosis or pneumoperitoneum. Imaged inferior cardiac chambers are unremarkable. The spleen, pancreas and adrenal glands are unremarkable. Moderately distended gallbladder with cholelithiasis and equivocal gallbladder wall thickening. No significant pericholecystic stranding, biliary ductal dilation or choledocholithiasis. There is suggestion of hepatic steatosis. Patency of the hepatic and portal veins. Unremarkable kidneys. No hydronephrosis. Unremarkable urinary bladder, uterus and adnexa. Calcified plaque of the abdominal aorta without aneurysm. No adenopathy. Mild nonspecific distal esophageal wall thickening. Mild colonic diverticulosis. No bowel obstruction or bowel wall thickening. The visualized appendix appears noninflamed however is not seen in its entirety. No ascites or mesenteric inflammation. Unremarkable soft tissues. Degenerative changes of the spine, pelvis and hips. No acute fracture. IMPRESSION: 1. Cholelithiasis with moderate gallbladder distention and equivocal gallbladder wall thickening. Correlation with right upper quadrant abdominal ultrasound recommended to exclude acute cholecystitis. 2. No bowel obstruction or bowel wall thickening. 3. Mild colonic diverticulosis without acute diverticulitis. 4. Mild distal esophageal wall thickening may reflect esophagitis. US gallbladder HISTORY: 55 years-old Female RUQ pain, abnormal gallbladder acute right upper quadrant abdominal pain with cholelithiasis COMPARISON: CT abdomen and pelvis of same day TECHNIQUE: Multiple real-time sonographic images of the abdominal right upper quadrant were obtained assessing grayscale appearance and color flow FINDINGS: Visualized pancreas is unremarkable. Echogenic appearance of the liver with poor through transmission. No hepatic mass lesion or ascites. Imaged right kidney is unremarkable without hydronephrosis. Distended gallbladder with numerous layering shadowing gallstones. The gallbladder wall is normal measuring 2 mm. No pericholecystic fluid identified. Normal common bile duct, 4 mm. Sonographic Mcknight sign was unable to be assessed secondary to recent pain medication administered to the patient. IMPRESSION: 1. Cholelithiasis with mild gallbladder distention. There is no gallbladder wall thickening or pericholecystic fluid identified. If there is further clinical concern for acute cholecystitis, a follow-up nuclear medicine hepatobiliary scan may be considered. 2. No biliary ductal dilation. 3. Hepatic steatosis.
[2020-06-09] MEDS ORDERED: FLOSEAL HEMOSTATIC MATRIX 10ML TOP ONE (22:55)
--- NOTE | 2020-06-09 23:31 | Post Operative Brief Note ---
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
[2020-06-10] MEDS ORDERED: CHECK SCOPOLAMINE PATCH PLACEMENT SCH
--- NOTE | 2020-06-10 00:24 | Anesthesiology Progress Note ---
Date of Service June 10, 2020 Anesthesia Post Procedure Vital Signs Vital Signs: Temp Pulse Pulse Pulse Resp BP BP 06/10/20 00:10 36.4 C L 61 15 120/67 06/10/20 00:00 79 16 133/83 06/09/20 23:50 75 16 129/82 06/09/20 23:40 70 14 124/66 06/09/20 23:31 36 C L 69 16 121/71 06/09/20 20:01 86 18 138/79 06/09/20 18:36 83 18 144/102 H 06/09/20 16:47 85 16 147/95 H 06/09/20 15:25 83 16 145/90 H 06/09/20 13:36 36.6 C 89 20 172/99 H Pulse Ox 06/10/20 00:10 93 06/10/20 00:00 93 06/09/20 23:50 97 06/09/20 23:40 96 06/09/20 23:31 97 06/09/20 20:01 98 06/09/20 18:36 96 06/09/20 16:47 97 06/09/20 15:25 97 06/09/20 13:36 99 Pain Intensity Abdomen: Pain Intensity: 2 Transfer of Care Handoff Completed per policy Notes Mental Status: alert / awake / arousable Patient Amnestic to Procedure: Yes Nausea / Vomiting: adequately controlled Pain: adequately controlled Airway Patency, RR, SpO2: stable & adequate BP & HR: stable & adequate Hydration State: stable & adequate Anesthetic Complications: no major complications apparent and Pt Satisfied with anesthetic care
[2020-06-10] MEDS ORDERED: SODIUM CHLORIDE 0.9% 1000ML 1,000 ML IV SCH ×2 (00:33→18:30)
[2020-06-10] MEDS: ONDANSETRON INJ 2 MG/ML 2 ML VIAL IV PRN ×2 (01:06→10:30)
[2020-06-10] MEDS: MoRPHine SULFATE 4 MG/ML 1 ML CARP\\VIAL IV PRN ×2 (01:40→07:39)
--- NOTE | 2020-06-10 02:04 | History and Physical Report ---
DATE OF ADMISSION: 06/10/2020 CHIEF COMPLAINT: Abdominal pain, cholecystitis. HISTORY OF PRESENT ILLNESS: This is a 55-year-old female with past medical history significant for hypertension, reflux esophagitis, hyperlipidemia, who presented with abdominal pain. The patient says she had back pain a few months ago. At the end of April, she had upper abdominal pain and back pain that resolved, but since last , she has a persistent upper abdominal pain radiating to the back, about 8/10 but in severity. So she came to the ER and imaging studies showed cholecystitis. The patient was taken to the OR and status post laparoscopic cholecystectomy. Currently resting comfortably and hemodynamically stable. Currently not having much pain. No nausea, no fever, no chills. She says she has cough and some sore throat post procedure. Denies any headache. No blurred vision, no earache, no runny nose, no cough, no chest pain, no shortness of breath. Normal bowel and bladder movements. No rash, no swelling in the legs. ALLERGIES: LEXAPRO, PROZAC, WELLBUTRIN. PAST MEDICAL HISTORY: As mentioned above. PAST SURGICAL HISTORY: Hysteroscopy, endometrial ablation, D and C. MEDICATIONS: The patient is on amlodipine 5 mg p.o. daily, ascorbic acid 500 mg p.o. a.m., baclofen 10 mg p.o. at bedtime p.r.n., vitamin D 125 mcg p.o. a.m., folic acid 400 mcg p.o. daily, hydrochlorothiazide 25 mg p.o. daily, ibuprofen as needed, lactobacillus daily in the a.m., Losartan 100 mg p.o. a.m., multivitamins 1 tablet daily, omeprazole 20 mg daily. FAMILY HISTORY: Significant for brother had arthritis, migraines; father had lung cancer; mother had acid reflux. SOCIAL HISTORY: . No smoking, no alcohol, no drug use. REVIEW OF SYSTEMS: As per HPI. Rest of the review of systems negative. PHYSICAL EXAMINATION: GENERAL: The patient is of moderate build, not in acute distress. VITAL SIGNS: Temperature 37.1, pulse 77, respiratory rate 14, blood pressure 133/75, oxygen 93% on 2 liters. HEENT: Head atraumatic. NECK: No JVD, no neck masses, no carotid bruits. CARDIOVASCULAR: S1, S2 heard, regular rate and rhythm, no murmur, no gallop. RESPIRATORY SYSTEM: Normal AP diameter. No accessory muscle use. No wheezing, no crackles. ABDOMEN: Status post laparoscopic cholecystectomy. Lap sites, no drainage seen. Bowel sounds sluggish. No guarding, no rigidity. CENTRAL NERVOUS SYSTEM: Cranial nerves II-XII grossly intact. Nonfocal. EXTREMITIES: No edema, no erythema. LABORATORY DATA: WBC 10, hemoglobin 13.8, hematocrit 40.3, platelets 253. Sodium 134, potassium 3.6, chloride 99, bicarbonate 30, BUN 14, creatinine 0.7, serum glucose 126, calcium 9.3, total bilirubin 0.9, direct bilirubin 0.1, AST 21, ALT 25, alkaline phosphatase 91. Troponin I less than 0.015. Lipase 103. Urinalysis negative. SARS-CoV-2 antigen rapid test negative. IMAGING DATA: Gallbladder ultrasound, cholelithiasis and mild gallbladder distention. There is no gallbladder wall thickening or pericholecystic fluid identified, concern for acute cholecystitis. CT abdomen and pelvis, cholelithiasis, moderate gallbladder distention and equivocal gallbladder wall thickening. Mild distal esophageal wall thickening, may reflect esophagitis. Chest x-ray, no acute process. ASSESSMENT AND PLAN: This is a 55-year-old female who presented with abdominal pain and imaging studies showed possible cholecystitis. 1. Abdominal pain, cholecystitis, status post laparoscopic cholecystectomy, tolerated the procedure fine. Diet as per surgery. 2. Hypertension: Continue home medication of losartan, hydrochlorothiazide, and amlodipine, and monitor the blood pressure. 3. Gastroesophageal reflux disease: Continue omeprazole. 4. Deep venous thrombosis prophylaxis, sequential compression devices. DISPOSITION: To be determined. Level 1 full code. MTDD
[2020-06-10] MEDS: oxyCODONE/ACETAMINOPHEN 5mg/325mg TAB PO PRN ×4 (05:31→19:57)
--- NOTE | 2020-06-10 08:42 | Operative Report (OR) ---
DATE OF OPERATION: 06/09/2020 PREOPERATIVE DIAGNOSES: Cholelithiasis and biliary colic. POSTOPERATIVE DIAGNOSES: Cholelithiasis, acute cholecystitis. PROCEDURE: Laparoscopic cholecystectomy. SURGEON: Luke Boggs MD. FINDINGS: The gallbladder was dilated. It was full of brown, black faceted stones. The wall was mildly thickened. The cystic duct was mildly dilated. The liver was firm. It was not nodular; however. The visible bowel appeared normal. TECHNIQUE: The patient was given a general anesthetic and the area was prepped and draped in the usual sterile fashion. The site for the infraumbilical incision was chosen and the skin and subcutaneous tissue were anesthetized with 0.5% Marcaine. Skin incision was made, and carried down through the subcutaneous tissue to the fascia which was grasped with 2 Luis clamps and incised between. The peritoneum was identified, incised and introducer was placed bluntly. The abdomen was then insufflated to a pressure of 15 mmHg with carbon dioxide. The sites for the upper midline, midclavicular and anterior axillary introducers were chosen. The skin layers were anesthetized with 0.5% Marcaine. Skin incisions were made and the introducers were placed under direct vision. I attempted to grasp the gallbladder, but because it was distended, I could not. I placed the drainage needle under direct vision and removed some of the bile. That allowed me then to grasp the gallbladder and elevate it laterally and superiorly. I then grasped the infundibulum and neck of the gallbladder and opened the peritoneum. There was a large amount of fat between the peritoneum and the ductal structures. I peeled that towards the common bile duct and was able to identify the cystic duct. I then dissected the gallbladder away from the liver on the lateral side and continued the dissection over the neck of the gallbladder and into the triangle of Calot, which was opened. The gallbladder was dissected away from the liver on that medial side as well, which allowed me to confidently identify the cystic duct. I then peeled additional connective tissue, lymphatics, and fatty tissue away from the cystic duct on the medial posterior sides. Further dissection was then carried out posterior to the cystic duct where the cystic artery was identified. It created a good window. Two clips were placed on the proximal cystic duct, one near the gallbladder and it was divided. I then was able to further isolate and skeletonize the cystic artery. Two clips were placed on the proximal cystic duct, one near the gallbladder and it was divided. The gallbladder was then peeled off the liver bed. There was not a good plane of dissection due to the acute inflammation and required meticulous millimeter by millimeter dissection in certain areas. The dissection was carried out to the fundus where the final attachments were divided. The gallbladder was placed into an Endobag and brought out through the upper midline incision where I had to open the gallbladder on the outside and remove the stones in order to extract the gallbladder within the bag, but that was accomplished. That introducer was replaced. Liver edge was elevated. There were 3 areas of oozing from the gallbladder bed of the liver, one of which was controlled with a clip and the remainder controlled with cautery. The subdiaphragmatic and subhepatic spaces were irrigated and the irrigation was removed and that was repeated until the return was clear. The gallbladder bed of the liver was again inspected and there was no bleeding. Because of the previous oozing and the acute nature of the gallbladder, I filled the gallbladder bed with FloSeal. The clips were inspected and were intact. There was no bile leak or bleeding. Liver was allowed to fall back into its anatomic position and the gas was allowed to escape. The introducers were removed. The fascia of the umbilical and upper midline introducer sites was closed with interrupted 0 Vicryl. The skin of all the incisions was closed with 4-0 Monocryl in either an interrupted or running subcuticular fashion. The skin was further anesthetized with 0.5% Marcaine. The skin was cleansed, dried, benzoin placed, Steri-Strips applied. Estimated blood loss was 8 mL Sponge, needle and instrument counts were correct prior to closure. The patient tolerated the surgical procedure without complication and was transferred to recovery. I attest to the content of the Intraoperative Record and any orders documented therein. Any exception s are noted below.
--- NOTE | 2020-06-10 09:00 | Electrocardiogram Report ---
Test Reason : Blood Pressure : / mmHG Vent. Rate : 074 BPM Atrial Rate : 074 BPM P-R Int : 186 ms QRS Dur : 122 ms QT Int : 422 ms P-R-T Axes : 051 -40 072 degrees QTc Int : 468 ms Normal sinus rhythm Left atrial enlargement Left anterior fascicular block Left ventricular hypertrophy with QRS widening Abnormal ECG No previous ECGs available Confirmed by Timothy Daniels ([id number]) on 06/10/2020 8:59:53 AM Referred By: REFERRED SELF Confirmed By:Timothy Daniels
[2020-06-10] MEDS: CHOLECALCIFEROL 1,000 UNITS 25 MCG TAB PO SCH (09:05)
[2020-06-10] MEDS: ADVANCED PROBIOTIC 1250 MG CAPSULE PO SCH (09:05)
[2020-06-10] MEDS: PANTOprazole 40 MG TAB PO SCH (09:06)
[2020-06-10] MEDS: LOSARTAN POTASSIUM 50 MG TAB PO SCH (09:06)
[2020-06-10] MEDS: hydroCHLOROthiazide 25 MG TAB PO SCH (09:06)
[2020-06-10] MEDS: amLODIPine BESYLATE 5 MG TAB PO SCH (09:06)
--- NOTE | 2020-06-10 10:48 | Surgery Progress Note ---
Date of Service June 10, 2020 Assessment & Plan (1) Acute cholecystitis: Postoperative day #1 status post laparoscopic cholecystectomy. Patient having incisional discomfort requiring morphine. Would not discharge at present time and would keep for pain control. She is only 12 hours postoperative. Encourage p.o. intake Encouraged ambulation Admission and Anticipated Discharge Date Admission Date: June 09, 2020 Subjective Postoperative day #1 status post laparoscopic cholecystectomy Having surgical discomfort at the incisions which was not controlled with oral analgesics and required morphine. Preoperative pain is resolved Had mild nausea today Did tolerate diet Physical Exam Gastrointestinal (Abdomen): Inspection/Auscultation: normal bowel sounds; abdomen not distended Percussion/Palpation: + abdomen tender (Incisional and right upper quadrant) and abdomen soft Results & Data ([facility]) Vital Signs (Past 12 Hours) Vital Signs Temp Pulse Pulse Resp BP Pulse Ox 06/10/20 06:59 36.8 C 72 18 117/71 94 06/10/20 03:16 37.3 C 86 14 119/74 95 06/10/20 02:29 36.9 C 87 14 123/75 93 06/10/20 01:25 36.9 C 77 14 132/76 93 06/10/20 01:14 36.9 C 94 H 16 122/67 94 06/10/20 00:56 37.1 C 77 14 133/75 93 06/10/20 00:10 36.4 C L 61 15 120/67 93 06/10/20 00:00 79 16 133/83 93 06/09/20 23:50 75 16 129/82 97 06/09/20 23:40 70 14 124/66 96 06/09/20 23:31 36 C L 69 16 121/71 97 Laboratory Results 06/09/20 06/09/20 06/09/20 Range/Units Unknown 16:53 15:25 WBC (4.8-10.8) K/uL RBC (4.2-5.4) M/uL Hgb (12.0-16.0) g/dL Hct (37-47) % MCV (80-100) fL MCH (25-34) pg MCHC (32-36) g/dL RDW Std Deviation (36.4-46.3) fL RDW Coeff of Frandy (11.5-14.5) % Plt Count (130-400) K/uL MPV (7.4-10.4) fL Immature Gran % (Auto) % Neut % (Auto) % Lymph % (Auto) % Woods % (Auto) % Eos % (Auto) % Baso % (Auto) % Neut # (Auto) (1.4-6.5) K/uL Lymph # (Auto) (1.2-3.4) K/uL Woods # (Auto) (0.11-0.59) K/uL Eos # (Auto) (0-0.5) K/uL Baso # (Auto) (0-0.2) K/uL Immature Gran # (Auto) (0.00-0.02) K/uL Sodium 134 L (136-145) mmol/L Potassium 3.6 (3.5-5.1) mmol/L Chloride 99 (98-107) mmol/L Carbon Dioxide 30 (21-32) mmol/L Anion Gap 5.0 (3-11) BUN 14 (7-18) mg/dl Creatinine 0.70 (0.6-1.2) mg/dl Est Cr Clr Drug Dosing 94.4 ml/min Est GFR ( Amer) 114.6 Est GFR (Non-Af Amer) 98.9 BUN/Creatinine Ratio 19.7 (10-20) Glucose 126 H (70-99) mg/dl Calcium 9.3 (8.5-10.1) mg/dl Total Bilirubin 0.9 (0.2-1) mg/dl Direct Bilirubin 0.1 (0-0.2) mg/dl AST 21 (15-37) U/L ALT 25 (12-78) U/L Alkaline Phosphatase 91 (45-117) U/L Troponin I < 0.015 (0-0.045) ng/ml Total Protein 8.8 H (6.4-8.2) gm/dl Albumin 4.0 (3.4-5.0) gm/dl Lipase 103 (73-393) U/L Specimen Hemolysis Urine Color Urine Appearance (Clear) Urine pH (4.5-7.5) Ur Specific [place] (1.000-1.030) Urine Protein (Negative) Urine Glucose (UA) (Negative) Urine Ketones (Negative) Urine Blood (Negative) Urine Nitrite (Negative) Urine Bilirubin (Negative) Urine Urobilinogen (Negative) Ur Leukocyte Esterase (Negative) Urine WBC (Auto) (0-5) /hpf Urine RBC (Auto) (0-4) /hpf U Hyaline Cast (Auto) (0-5) /lpf U Epithel Cells (Auto) (0-5) /lpf Urine Bacteria (Auto) (Negative) Urine Yeast SARS-CoV-2 Ag (Rapid) Negative (Negative) 06/09/20 06/09/20 Range/Units 15:25 13:40 WBC 10.17 (4.8-10.8) K/uL RBC 4.43 (4.2-5.4) M/uL Hgb 13.8 (12.0-16.0) g/dL Hct 40.3 (37-47) % MCV 91.0 (80-100) fL MCH 31.2 (25-34) pg MCHC 34.2 (32-36) g/dL RDW Std Deviation 44.8 (36.4-46.3) fL RDW Coeff of Frandy 13.6 (11.5-14.5) % Plt Count 253 (130-400) K/uL MPV 10.5 H (7.4-10.4) fL Immature Gran % (Auto) 0.4 % Neut % (Auto) 78.4 % Lymph % (Auto) 16.6 % Woods % (Auto) 3.7 % Eos % (Auto) 0.8 % Baso % (Auto) 0.1 % Neut # (Auto) 7.97 H (1.4-6.5) K/uL Lymph # (Auto) 1.69 (1.2-3.4) K/uL Woods # (Auto) 0.38 (0.11-0.59) K/uL Eos # (Auto) 0.08 (0-0.5) K/uL Baso # (Auto) 0.01 (0-0.2) K/uL Immature Gran # (Auto) 0.04 H (0.00-0.02) K/uL Sodium (136-145) mmol/L Potassium (3.5-5.1) mmol/L Chloride (98-107) mmol/L Carbon Dioxide (21-32) mmol/L Anion Gap (3-11) BUN (7-18) mg/dl Creatinine (0.6-1.2) mg/dl Est Cr Clr Drug Dosing ml/min Est GFR ( Amer) Est GFR (Non-Af Amer) BUN/Creatinine Ratio (10-20) Glucose (70-99) mg/dl Calcium (8.5-10.1) mg/dl Total Bilirubin (0.2-1) mg/dl Direct Bilirubin (0-0.2) mg/dl AST (15-37) U/L ALT (12-78) U/L Alkaline Phosphatase (45-117) U/L Troponin I (0-0.045) ng/ml Total Protein (6.4-8.2) gm/dl Albumin (3.4-5.0) gm/dl Lipase (73-393) U/L Specimen Hemolysis Urine Color Yellow Urine Appearance Clear (Clear) Urine pH 6.5 (4.5-7.5) Ur Specific [place] 1.011 (1.000-1.030) Urine Protein 2+ H (Negative) Urine Glucose (UA) Negative (Negative) Urine Ketones Negative (Negative) Urine Blood 3+ H (Negative) Urine Nitrite Negative (Negative) Urine Bilirubin Negative (Negative) Urine Urobilinogen Negative (Negative) Ur Leukocyte Esterase Negative (Negative) Urine WBC (Auto) 1-5 (0-5) /hpf Urine RBC (Auto) 5-10 H (0-4) /hpf U Hyaline Cast (Auto) 1-5 (0-5) /lpf U Epithel Cells (Auto) >30 H (0-5) /lpf Urine Bacteria (Auto) 1+ H (Negative) Urine Yeast Not Reportable SARS-CoV-2 Ag (Rapid) (Negative)
--- NOTE | 2020-06-10 14:19 | Communication Note ---
Date of Service: June 10, 2020 pt admitted earlier today : 1) Acute cholecystitis: presented with abdominal pain Gall bladder USG : cholecystitis , with pericholecystic fluid status post laparoscopic cholecystectomy. Postoperative day #1 appreciate input from surgery recovering well post op no fever or chills tolerating diet repeat CMP in AM possible dc home tomorrow after surgery sandhya Pierce MD
[2020-06-10] MEDS ORDERED: KETOROLAC 30 MG/ML VIAL IV PRN (18:18)
[2020-06-10] MEDS ORDERED: bisacodyL 5 MG TABEC PO ONE (18:18)
--- NOTE | 2020-06-10 18:22 | Communication Note ---
Date of Service: June 10, 2020 pt reports not able to pass gas since surgery no BM yet /complains of abdominal distention pain in abdomen while walking poor appetite , no nausea /vomiting pt is encouraged to increase activity as tolerated will limit Narcotic pain meds , utilize IV toradol as needed added Miralax , gentle IVF Xray of KUB for illeus in am if not able to pass gas Aubree Pierce MD
[2020-06-10] MEDS ORDERED: POLYETHYLENE (MIRALAX) 17 GM PACK ONE (19:56)
[2020-06-10] MEDS: POLYETHYLENE (MIRALAX) 17 GM PACK PO SCH (19:58)
[2020-06-11 07:19] LABS: Albumin Level 3.1 gm/dl (3.4-5.0); BUN Creatinine Ratio 17.6 (10-20); Calcium 8.2 mg/dl (8.5-10.1); Creatinine Clr Calc Pharmacy 97.2 ml/min; Est GFR (African American) 115.2; Est GFR (Non-African American) 99.4; Potassium 3.2 mmol/L (3.5-5.1)
[2020-06-11] MEDS ORDERED: POTASSIUM CHLORIDE CRTAB 20 MEQ TABCR PO STA (07:27)
[2020-06-11 07:33] LABS: Albumin Globulin Ratio 0.8 (0.9-2); Globulin 3.8 gm/dl (2.5-4.0); Total Protein 6.9 gm/dl (6.4-8.2)
[2020-06-11] MEDS: CHOLECALCIFEROL 1,000 UNITS 25 MCG TAB PO SCH (08:03)
[2020-06-11] MEDS: ADVANCED PROBIOTIC 1250 MG CAPSULE PO SCH (08:03)
[2020-06-11] MEDS: amLODIPine BESYLATE 5 MG TAB PO SCH (08:03)
[2020-06-11] MEDS: PANTOprazole 40 MG TAB PO SCH (08:03)
[2020-06-11] MEDS: LOSARTAN POTASSIUM 50 MG TAB PO SCH (08:03)
[2020-06-11] MEDS: hydroCHLOROthiazide 25 MG TAB PO SCH (08:03)
[2020-06-11] MEDS: POLYETHYLENE (MIRALAX) 17 GM PACK PO SCH (08:10)
--- NOTE | 2020-06-11 10:23 | Surgery Progress Note ---
Date of Service June 11, 2020 Assessment & Plan (1) Acute cholecystitis: Postoperative day #2 status post laparoscopic cholecystectomy Doing better today Wishes to go home Discussed postoperative activity restrictions Discussed follow-up Admission and Anticipated Discharge Date Admission Date: June 10, 2020 Subjective Postoperative day #2 status post laparoscopic cholecystectomy The patient feels better today although she does have some mild nausea after eating Her pain has decreased She has not vomited. She tolerated a regular diet although her appetite is not back to normal. Physical Exam Gastrointestinal (Abdomen): Inspection/Auscultation: normal bowel sounds; abdomen not distended Percussion/Palpation: + abdomen tender (Incisional only) and abdomen soft Results & Data ([facility]) Vital Signs (Past 12 Hours) Vital Signs Temp Pulse Pulse Resp BP Pulse Ox 06/11/20 07:22 36.9 C 72 18 127/76 92 06/10/20 23:27 37.3 C 79 16 119/71 91
[2020-06-11] MEDS: oxyCODONE/ACETAMINOPHEN 5mg/325mg TAB PO PRN (10:31)
--- NOTE | 2020-06-11 10:34 | Discharge Summary ---
Date of Service June 11, 2020 Admission HPI Per Admitting Provider This is a 55-year-old female who presented to the emergency room with a complaint of abdominal pain centered in the right upper quadrant. It began 2 days ago. The severity waxes and wanes but was sharp. It did radiate through to her back. She had nausea but did not vomit. She has had no fever or chills. She denies change in her bowel habits. She denies dysuria and hematuria. She stated that she has had similar discomfort about a month ago but the severity was much worse. That was associated with nausea and a few episodes of vomiting but resolved spontaneously. She has no history of jaundice hepatitis or pancreatitis. Admission Exam Per Admitting Provider Constitutional: no acute distress Neck: trachea midline Respiratory: normal respiratory effort, lungs clear to auscultation Cardiovascular: Rate/Rhythm: regular rate and regular rhythm Gastrointestinal (Abdomen): Inspection/Auscultation: normal bowel sounds; abdomen not distended Percussion/Palpation: + abdomen tender (Right subcostal tenderness that is mild and to moderate palpation) and abdomen soft; no abdominal mass Skin: no rashes, warm and dry Lymphatic: no cervical lymphadenopathy Principal Diagnosis Acute cholecystitis Discharge Exam Constitutional no acute distress Gastrointestinal (Abdomen) Inspection/Auscultation: normal bowel sounds and + abdominal surgical incision (All are clean, dry and intact); abdomen not distended Percussion/Palpation: + abdomen tender (Incisional only); + abdomen not soft Discharge Data Allergies Allergy/AdvReac Type Severity Reaction Status Date / Time amoxicillin [From Augmentin] Allergy Intermediate Bloody Verified 06/09/20 15:38 diarrhea clavulanic acid Allergy Intermediate Bloody Verified 06/09/20 15:38 [From Augmentin] diarrhea Consultations 06/09/20 18:14 Consult General Surgery Stat 06/09/20 19:42 ED Decision to Admit Stat Procedures Performed Operation Date: 06/09/20 21:20 Actual Procedures p Laparoscopic Cholecystectomy - Luke Boggs MD Ordered Studies 06/09/20 15:12 CT abd pelvis IV con only Stat 06/09/20 17:10 US gallbladder Stat Hospital Course (1) Acute cholecystitis: The patient was taken from the emergency room directly to the operating room where laparoscopic cholecystectomy was performed. Findings at the time of the procedure revealed thickening of the gallbladder with adhesion. There was a lot of edema surrounding the gallbladder. There were multiple stones within the lumen of the gallbladder. The liver was of normal size and contour the visible bowel appeared normal. On postoperative day #1 she was having some nausea. She did tolerate a diet. Her appetite improved some but was not back to normal by postoperative day #2 but her nausea was minimal. Her pain was better controlled. She was anxious to go home and was discharged. Discharge instructions and follow-up were discussed. Total Time Total Time Spent Total Time Spent (In Minutes): 15 Discharge Plan Discharge Items Patient Disposition: Home - Self-Care Reason For Visit: ACUTE CHOLECYSTITIS Discharge Diagnosis: Acute cholecystitis Activity: As commented below Non-emergency contact: Surgeon Call non-emergency contact if: your temperature is above 101.5, your wound has increased redness and your wound pain has increased Follow-up/Referrals: PCPDOMINIC [Primary Care Provider] - Diet: Regular Addtl Attending Provider Instructions: Post-Surgical ~Discharge Instructions Activity Recommendations: - lifting limitation: (10 pounds for 2 weeks), - exercise/sex/sports limit: (nonstrenuous for 2 weeks), - driving or machine use limit: (none for 1 week), - Shower/bathe limit: (may shower beginning tomorrow) Diet: - Resume previous diet SPECIAL CARE INSTRUCTIONS: - May shower in 24 hours. Let water run over area and pat dry. - Leave steri strips on for one week. - Call the surgeon's office with any questions or concerns - - (ex. temperature higher than 101 degrees F, excessive bleeding or pain). MEDICATIONS: - Resume previous medications unless instructed otherwise by your surgeon. - Ibuprofen 600 mg every 6 hours with food - Percocet 1 every 4 hours, as needed for pain FOLLOW UP VISIT: - If not already scheduled, please call the office to schedule a two week follow-up appointment. Office number Pending Studies at Discharge: Yes Studies:: Pathology Stand-Alone Forms: [employer], Opioid Pain Management, Smoking Cessation Medications and DC Order Prescriptions: New oxycodone-acetaminophen [Percocet] 5-325 mg Tablet 1 tab PO Q8 PRN (Reason: pain) Qty: 5 RF: 0 ondansetron HCl [Zofran] 4 mg tablet 4 mg PO Q8H PRN (Reason: nausea and vomiting) 5 Days Qty: 10 RF: 0 Continued amlodipine 5 mg Tablet 5 mg PO QAM RF: 0 folic acid 400 mcg Tablet 400 mcg PO QAM RF: 0 acetaminophen [Tylenol Extra Strength] 500 mg Tablet 1,000 mg PO Q6H PRN (Reason: Pain) RF: 0 ascorbic acid (vitamin C) [Vitamin C] 500 mg Tablet 500 mg PO QAM RF: 0 baclofen 10 mg Tablet 10 mg PO HS PRN (Reason: Muscle Relaxer) RF: 0 ibuprofen 200 mg Tablet 800 mg PO Q8H PRN (Reason: Pain) RF: 0 zinc 50 mg Tablet 50 mg PO QAM RF: 0 hydrochlorothiazide 25 mg Tablet 25 mg PO QAM RF: 0 losartan 100 mg Tablet 100 mg PO QAM RF: 0 apple cider vinegar 500 mg Tablet 500 mg PO QAM RF: 0 One Daily Womens 50 Plus 0.4 mg Tablet 1 tab PO QAM RF: 0 omeprazole 20 mg Tablet,Delayed Release (Dr/Ec) 20 mg PO QAM RF: 0 cholecalciferol (vitamin D3) [Vitamin D3] 125 mcg (5,000 unit) Tablet 125 mcg PO QAM RF: 0 Probiotic 3 billion cell Capsule 0 mmu cells PO QAM RF: 0 Discharge Orders: Discharge Order (Routine); Ordered 06/11/20 Ordered By: Luke Peguero/Other Patient Handouts: Cholecystectomy Admission Data Admit Date/Time: 06/10/20 00:33 Attending Provider: Luke Boggs Admit Provider: Luke Boggs Primary Care Provider: PCP,NO Other Providers: Luke Boggs Other Interventions: Discharge Summary Assessment (RN) Last Done: 06/11/20 10:23
== END 2020-06-11 11:18 | disposition home or self-care (01) ==
LOC: ED 13:25 → OR 21:00 → INTOOBSV 23:31 → 3N 23:31

== ENCOUNTER 2023-04-26 19:21 | Inpatient (IN) ==
[2023-04-26] MEDS ORDERED: ACETAMINOPHEN 1,000 MG/100 ML VIAL IV STA (20:01)
[2023-04-26 20:18] LABS: iSTAT Hemoglobin 12.2 g/dl (12.0-16.0); iSTAT Ionized Calcium 1.08 mmol/l (1.12-1.32); iSTAT Potassium 3.8 mmol/L (3.3-5.0)
[2023-04-26] MEDS ORDERED: ONDANSETRON INJ 2 MG/ML 2 ML VIAL IV STA (20:24)
[2023-04-26 20:27] LABS: Hematocrit (blood only) 35.9 % (37.0-47.0); Hemoglobin 12.6 g/dl (12.0-16.0); Mean Corpuscular Hemoglobin 30.7 pg (25.0-34.0); Mean Corpuscular Hgb Conc 35.1 g/dL (32.0-36.0); Mean Corpuscular Volume 87.3 fL (80.0-100.0); Mean Platelet Volume 11.2 fL (9.4-12.4); Platelet Count 236 K/uL (130-400); RDW Coefficient of Variation 13.2 % (11.5-14.5); RDW Standard Deviation 41.6 fL (36.4-46.3); Red Blood Count 4.11 M/uL (4.20-5.40); White Blood Count 11.15 K/ul (4.8-10.8)
[2023-04-26] MEDS ORDERED: SODIUM CHLORIDE 0.9% 1,000 ML IV ONE (20:29)
[2023-04-26] MEDS ORDERED: SODIUM CHLORIDE 0.9% 500 ML IV ONE (20:29)
[2023-04-26] MEDS ORDERED: CEFEPIME 2,000 MG/20 ML VIAL IV STA (20:29)
[2023-04-26] MEDS: SODIUM CHLORIDE 0.9% 1,000 ML IV ONE ×2 (20:30→20:31)
[2023-04-26 20:40] LABS: Albumin Globulin Ratio 1.4 (0.9-2); BUN Creatinine Ratio 18.3 (10-20); Bilirubin,Total 1.2 mg/dl (0.2-1.0); Creatinine Clr Calc Pharmacy 69.2 ml/min; Est GFR (African American) 80.2 ml/min; Est GFR (Non-African American) 69.2 ml/min; Globulin 2.9 gm/dl (2.5-4.0); Magnesium 1.6 mg/dl (1.7-2.4); Potassium 3.8 mmol/L (3.5-5.1); Total Protein 6.9 gm/dl (6.0-8.3)
[2023-04-26 20:47] LABS: Troponin I High Sensitivity 8.4 pg/ml (0-14)
[2023-04-26 20:50] LABS: INR 0.9 (0.9-1.1); Partial Thromboplastin Ratio 0.9; Partial Thromboplastin Time 25.8 Seconds (21.0-31.0); Prothrombin Time 10.4 Seconds (9.0-12.0)
[2023-04-26 21:03] LABS: ALC (manual) 2.68 K/uL (1.2-3.4); ANC (manual) 7.47 K/uL (1.4-6.5); Eosinophils # (manual) 0.22 K/uL (0-0.50); Lymphocytes # (manual) 2.68 K/uL (1.2-3.4); Metamyelocytes # (manual) 0.56 K/uL (0-0); Monocytes # (manual) 0.22 K/uL (0.11-0.59); Neutrophils # (manual) 7.47 K/uL (1.40-6.50); Neutrophils % (manual) 67 %; RBC Morphology Unremarkable
[2023-04-26] MEDS ORDERED: OPTIRAY 320 500ml IV ONE (21:09)
[2023-04-26 21:19] LABS: Appearance Urine Clear (Clear); Bacteria Urine Automated 4+ (Negative); Bilirubin Urine Negative (Negative); Blood Urine 1+ (Negative); Color Urine Yellow; Glucose Urine UA Negative (Negative); Ketones Urine Negative (Negative); Leukocyte Esterase Urine 1+ (Negative); Nitrite Urine Negative (Negative); Specific Gravity Urine 1.009 (1.000-1.030); Urobilinogen Urine Negative (Negative); WBC Urine Automated >30 /hpf (0-5); pH Urine 8.5 (4.5-7.5)
[2023-04-26 21:23] LABS: Protein Urine Trace (Negative)
--- NOTE | 2023-04-26 21:41 | CT Scan Report ---
Exam(s): CTA CHEST IV Amt: 117 ml optiray 320 EXAM: CT Angiography Chest With Intravenous Contrast CLINICAL HISTORY: ro PE. TECHNIQUE: Axial computed tomographic angiography images of the chest with intravenous contrast. CTDI is 37.99 mGy and DLP is 2978.54 mGy-cm. Automated exposure control was utilized for the study. A dose lowering technique was utilized adhering to the principles of ALARA. MIP reconstructed images were created and reviewed. COMPARISON: No relevant prior studies available. FINDINGS: Limitations: There is minimal respiratory artifact through the inferior thorax, which mildly degrades image quality on multiple image slices. Pulmonary arteries: Accounting for limitations with respiratory artifact through the lung bases, there is no definite evidence for pulmonary embolism. Aorta: No acute findings. No thoracic aortic aneurysm. Lungs: No definite focal airspace consolidation with minimal curvilinear changes at the lung bases. Pleural space: Unremarkable. No significant effusion. No pneumothorax. Heart: Unremarkable. No cardiomegaly. No significant pericardial effusion. Bones/joints: No acute fracture. No dislocation. Soft tissues: See below. Lymph nodes: Unremarkable. No enlarged lymph nodes. Tubes, lines and devices: A left subclavian portacatheter is noted with the tip in the superior vena cava. There is gas and hyperdense material in the pocket surrounding the subcutaneous access port measuring 4.1 x 4.5 x 3.9 cm. IMPRESSION: 1. Accounting for limitations with respiratory artifact through the lung bases, there is no definite evidence for pulmonary embolism. 2. No definite focal airspace consolidation with minimal curvilinear changes at the lung bases. No pleural effusion or pneumothorax. 3. A left subclavian portacatheter is noted with the tip in the superior vena cava. There is gas and hyperdense material in the pocket surrounding the subcutaneous access port measuring 4.1 x 4.5 x 3.9 cm. The clinical significance of this finding is indeterminant. Electronically signed by: Pranav Marques MD 04/26/23 21:40 PM
--- NOTE | 2023-04-26 21:50 | CT Scan Report ---
CT head/brain wo con CLINICAL HISTORY: gomez Technique: Contiguous axial CT images of the head were acquired from the base of the skull to the kathy stacia without intravenous contrast administration. Images were viewed in brain, subdural and bone [facility]. Automated dose lowering techniques and/or adjustment according to patient size were utilized for this exam. Comparison: Comparison is made to CT head 04/26/2021 Findings: The ventricles, basal cisterns, and cerebral sulci are normal. There is no acute intracranial hemorrh age or evidence of acute territorial infarction. Neither mass effect, shift of the midline structures , nor abnormal extra-axial fluid collections are shown. Imaged portions of the paranasal sinuses and mastoid air cells are clear. The orbits appear normal. There are no acute fractures of the calvaria or scalp swelling. Impression: No acute intracranial hemorrhage, no evidence of acute territorial infarction or other acute intracra nial disease process. ACT 112: Negative or not required by law. Electronically signed by: Sridhar Yang M.D. 04/26/2023 9:48 PM
--- NOTE | 2023-04-26 22:02 | CT Scan Report ---
Exam(s): CT ABDOMEN + PELVIS With Contrast IV Amt: 117 ml optiray 320 EXAM: CT Abdomen and Pelvis With Intravenous Contrast CLINICAL HISTORY: RLQ pain fever on chemo. TECHNIQUE: Axial computed tomography images of the abdomen and pelvis with intravenous contrast. CTDI is 37.99 mGy and DLP is 2978.54 mGy-cm. Automated exposure control was utilized for the study. A dose lowering technique was utilized adhering to the principles of ALARA. CONTRAST: Patient received 117 ml optiray 320 of IV contrast COMPARISON: CT abdomen and pelvis with contrast dated 04/26/2021 FINDINGS: Lung bases: Unremarkable. No mass. No consolidation. ABDOMEN: Liver: Stable hepatic steatosis with similar prominence of the right lobe of the liver suggesting a Yolande configuration. Gallbladder and bile ducts: Cholecystectomy. No ductal dilation. Pancreas: Unremarkable. No mass. No ductal dilation. Spleen: Unremarkable. No splenomegaly. Adrenals: Unremarkable. No mass. Kidneys and ureters: New subtle perinephric fat stranding. No abnormal enhancement of the kidneys. No hydronephrosis. Ureterectasis noted bilaterally with subtle hyperenhancement of the urothelium. Stomach and bowel: No bowel obstruction. No bowel mucosal abnormality involving the distal small bowel or proximal colon. Mucosal thickening of the decompressed distal transverse and descending colon is noted in regions of decompression. PELVIS: Appendix: The appendix is suggested along the inferomedial aspect of the cecum without findings to suggest acute appendicitis. Bladder: The bladder is distended without bladder wall thickening or bladder stones. Reproductive: Unremarkable as visualized. ABDOMEN and PELVIS: Intraperitoneal space: Unremarkable. No free air. No significant fluid collection. Bones/joints: No acute fracture. No dislocation. Soft tissues: Unremarkable. Vasculature: Unremarkable. No abdominal aortic aneurysm. Lymph nodes: Unremarkable. No enlarged lymph nodes. IMPRESSION: 1. The appendix is suggested along the inferomedial aspect of the cecum without findings to suggest acute appendicitis. 2. No bowel obstruction. No bowel mucosal abnormality involving the distal small bowel or proximal colon. Mucosal thickening of the decompressed distal transverse and descending colon is noted in regions of decompression; presumed normal variation. No free intraperitoneal fluid or pneumoperitoneum. 3. New subtle perinephric fat stranding. No abnormal enhancement of the kidneys. No hydronephrosis. Ureterectasis noted bilaterally with subtle hyperenhancement of the urothelium. Findings are suspicious for infection of the urothelium without coexisting pyelonephritis. Please correlate with urinalysis, as appropriate. Electronically signed by: Pranav Marques MD 04/26/23 22:01 PM
[2023-04-26 22:37] LABS: Adenovirus PCR Not Detected (NotDetected); Bordetella parapertussis PCR Not Detected (NotDetected); Bordetella pertussis PCR Not Detected (NotDetected); Chlamydia pneumoniae PCR Not Detected (NotDetected); Coronavirus 229E PCR Not Detected (NotDetected); Coronavirus CoV-2 (COVID19)PCR Not Detected (NotDetected); Coronavirus HKU1 PCR Not Detected (NotDetected); Coronavirus NL63 PCR Not Detected (NotDetected); Coronavirus OC43PCR Not Detected (NotDetected); Human Metapneumovirus PCR Not Detected (NotDetected); Influenza A PCR Not Detected (NotDetected); Influenza B PCR Not Detected (NotDetected); Mycoplasma pneumoniae PCR Not Detected (NotDetected); Parainfluenza Virus 1 PCR Not Detected (NotDetected); Parainfluenza Virus 2 PCR Not Detected (NotDetected); Parainfluenza Virus 3 PCR Not Detected (NotDetected); Parainfluenza Virus 4 PCR Not Detected (NotDetected); Respiratory Syncytial VirusPCR Not Detected (NotDetected); Rhinovirus/Enterovirus PCR Not Detected (NotDetected)
--- NOTE | 2023-04-27 00:08 | History & Physical Report ---
Date of Service April 26, 2023 Assessment & Plan (1) Sepsis: Plan: 56-year-old female past med history significant for hyperlipidemia, diabetes, history of COVID and long COVID and nocturnal hypoxemia, hypertension, GERD, dysplasia of cervix high-grade, plantar fasciitis, depression, triple-negative breast cancer started chemo last Thursday presents with headache, nausea and fevers. Sepsis Pyelonephritis Meets criteria for sepsis with temp spike, tachycardia, leukocytosis, pyelonephritis We will continue IV cefepime, IV fluids Monitor hemodynamics We will follow the cultures Hypoxia Required 2 L oxygen Reviewing pulmonary notes from [facility] patient seems to have a long COVID" 9 nocturnal hypoxemia and may need sleep study We will do nocturnal pulse ox study while patient in the hospital . Continue home inhalers History of breast cancer Triple-negative breast cancer S/p right lumpectomy Had first chemo last Thursday Follow-up with heme-onc Diabetes We will hold home medications Sliding scale We will monitor Hypertension We will hold hydrochlorothiazide and losartan and amlodipine for now We will restart as soon as possible Hyperlipidemia Zetia GERD Omeprazole Depression Zoloft DVT prophylaxis Lovenox Disposition Med/telemetry Full code History of Present Illness Chief Complaint: Nausea, headache and fevers Primary Care Provider: Alejandra Collier MD 56-year-old female past med history significant for hyperlipidemia, diabetes, history of COVID and long COVID and nocturnal hypoxemia, hypertension, GERD, dysplasia of cervix high-grade, plantar fasciitis, depression, triple-negative breast cancer started chemo last Thursday presents with headache, nausea and fevers. Patient states since chemo last Thursday states she is having a lot of headaches and nausea and today she developed fevers which prompted her to come to the ER. Also having right groin pain. No hematuria. No runny nose or sore throat or cough. No difficulty swallowing. No chest pain or shortness of breath. In the ER when she came in was tachycardic and hypoxic and and had temp spike. Currently resting comfortably ,saturating okay on 2 L. Past medical history as mentioned above Past surgical history. Right axilla lymph node biopsy. Cholecystectomy. Colonoscopy. Colposcopy. EGD. Hysteroscopy with endometrial ablation. D&C. Right partial mastectomy. Social history. Former smoker quit smoking in 1985. Smokes 0.01 pack a day for 2 years. Alcohol rarely. No drug use. Family history. Father had lung cancer. Mother had GERD. Uterine cancer. Brother has arthritis. Daughter has asthma. Son has asthma. Allergies Allergy/AdvReac Type Severity Reaction Status Date / Time amoxicillin [From Augmentin] Allergy Intermediate Bloody Verified 04/26/23 21:46 diarrhea clavulanic acid Allergy Intermediate Bloody Verified 04/26/23 21:46 [From Augmentin] diarrhea Home Medications Medication Instructions Recorded Confirmed Type acetaminophen 500 mg tablet 1,000 mg PO Q6H PRN Pain 06/09/20 04/26/23 History (Tylenol Extra Strength) amlodipine 5 mg tablet 5 mg PO QAM 06/09/20 04/26/23 History ascorbic acid (vitamin C) 500 mg 500 mg PO QAM 06/09/20 04/26/23 History tablet (Vitamin C) baclofen 10 mg tablet 10 mg PO HS PRN Muscle Relaxer 06/09/20 04/26/23 History cholecalciferol (vitamin D3) 125 125 mcg PO 3XWK 06/09/20 04/26/23 History mcg (5,000 unit) tablet (Vitamin D3) hydrochlorothiazide 25 mg tablet 25 mg PO QAM 06/09/20 04/26/23 History ibuprofen 200 mg tablet 800 mg PO Q8H PRN Pain 06/09/20 04/26/23 History losartan 100 mg tablet 100 mg PO QAM 06/09/20 04/26/23 History multivitamin with minerals-folic 1 tab PO QAM 06/09/20 04/26/23 History acid 0.4 mg tablet (One Daily Womens 50 Plus) omeprazole 20 mg tablet,delayed 20 mg PO QAM 06/09/20 04/26/23 History release zinc 50 mg tablet 50 mg PO 3XWK 06/09/20 04/26/23 History albuterol sulfate 90 mcg/actuation 2 puff inhalation Q6H PRN 01/22/23 04/26/23 History aerosol inhaler (Ventolin HFA) Shortness Of Breath Or Wheezing budesonide-formoterol HFA 160 1 inh inhalation BID 01/22/23 04/26/23 History mcg-4.5 mcg/actuation aerosol inhaler (Symbicort) dulaglutide 1.5 mg/0.5 mL 1.5 mg subcut .WEEKLY 01/22/23 04/26/23 History subcutaneous pen injector (Trulicity) ezetimibe 10 mg tablet 10 mg PO DAILY 01/22/23 04/26/23 History loratadine 10 mg tablet 10 mg PO DAILY 01/22/23 04/26/23 History metformin 500 mg tablet 500 mg PO DAILY 01/22/23 04/26/23 History mirabegron 50 mg tablet,extended 50 mg PO DAILY 01/22/23 04/26/23 History release 24 hr (Myrbetriq) mometasone 50 mcg/actuation nasal 2 spray intranasal DAILY 01/22/23 04/26/23 History spray Maalox/Benadryl/Lidocaine 10 ml PO .Q3-4HRS PRN Mouth sore 04/26/23 04/26/23 History pain lorazepam 0.5 mg tablet 0.5 mg PO DIRECTED PRN Anxiety 04/26/23 04/26/23 History sertraline 25 mg tablet 25 mg PO DAILY 04/26/23 04/26/23 History Past Med/Surg History Medical History Acute cholecystitis Diabetes mellitus GERD (gastroesophageal reflux disease) High cholesterol Hypertension Obesity PONV (postoperative nausea and vomiting) Surgical History History of breast biopsy (11/12/22) Right, Core Biopsy History of cholecystectomy (05/2020) History of endometrial ablation (1999) 1999 History of lumpectomy of right breast (12/23/22) Right 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 Don Radford at [facility] Lumbar disc disorder 2 discs during one procedure, 1994 Family History Mother Uterine cancer hysterectomy Father Lung cancer Brother No problems noted. Daughter No problems noted. Son No problems noted. Son No problems noted. Grandfather (Maternal) Bladder cancer Social History Smoking Status: Never smoker Second Hand Exposure: No; Do You Dip or Chew Tobacco: No; Tobacco Cessation Education Requested by Patient: No Hx Alcohol Use: No Hx Substance Use: No Preferred Language: Andorran Communication Ability: Effective Visual Impairment: Limited Hearing Ability: Normal Aircraft Magneto Mechanic Required: No Beliefs That Will Affect Care: None Current Living Situation: Significant Other Current Living Situation Comment: lives in home with boyfriend How many Children do You have: 3 Other Information That Helps Us Care for You: No Feels Safe at Home: Yes Safety Concerns: Feels Safe At This Time Childhood Exposure to Second-Hand Smoke: Yes Diet: Weight Watchers caffeine: Yes during the past year weight has: remained stable Dental Care, Regularly: Yes Assistive Devices: Glasses Review of Systems Review of Systems: All systems reviewed & are unremarkable except as noted in HPI & below Physical Exam Physical Exam: General- Not in distress Head- atraumatic Eyes- PERRL. ENT- oropharynx clear Neck- supple, no JVD. Lungs- clear to auscultation no wheezing or crackles. Heart- regular rhythm; no murmur, no gallop. Abdomen- normal bowel sounds, soft, nontender, no distension. Extremities- no pretibial edema, no erythema seen. Neuro- alert, oriented x 3; PERRL, no facial palsy; no dysarthria; Skin- warm & dry Results & Data Results & Data Vital Signs (Past 12 Hours) Vital Signs Temp Pulse Pulse Resp BP BP Pulse Ox 04/26/23 23:00 96 H 16 109/72 95 04/26/23 22:30 98 H 16 103/69 94 04/26/23 22:00 98 H 15 97/69 L 95 04/26/23 23:00 95 04/26/23 21:41 105 H 19 114/70 97 04/26/23 21:38 101 H 17 97 04/26/23 21:00 100 H 19 116/72 99 04/26/23 20:46 94 H 18 110/55 L 99 04/26/23 20:45 93 H 18 99 04/26/23 20:30 95 H 24 106/72 100 04/26/23 20:15 90 18 115/59 L 100 04/26/23 19:52 90 14 72/34 L 90 04/26/23 19:49 85 14 73/51 L 90 04/26/23 21:21 37.6 C 104 H 98 04/26/23 20:02 93 H 04/26/23 20:03 93 H 16 87/35 L 98 04/26/23 20:06 99 04/26/23 19:57 87 L 04/26/23 19:30 39.1 C H 103 H 20 99/59 L 94 O2 Del Method O2 Flow Rate 04/26/23 23:00 Nasal Cannula 2 04/26/23 22:30 Nasal Cannula 2 04/26/23 22:00 Nasal Cannula 2 04/26/23 23:00 Nasal Cannula 2 04/26/23 21:41 Nasal Cannula 2 04/26/23 21:38 Nasal Cannula 2 04/26/23 21:00 04/26/23 20:46 04/26/23 20:45 Nasal Cannula 2 04/26/23 20:30 Nasal Cannula 2 04/26/23 20:15 Nasal Cannula 2 04/26/23 19:52 Room Air 04/26/23 19:49 Room Air 04/26/23 21:21 Nasal Cannula 2 04/26/23 20:02 04/26/23 20:03 Nasal Cannula 2 04/26/23 20:06 Nasal Cannula 04/26/23 19:57 Room Air 04/26/23 19:30 Room Air Diagnostic Findings Laboratory Results WBC 11.15 K/ul (4.8-10.8) H 04/26/23 20:00 RBC 4.11 M/uL (4.20-5.40) L 04/26/23 20:00 Hgb 12.6 g/dl (12.0-16.0) 04/26/23 20:00 POC Hgb 12.2 g/dl (12.0-16.0) 04/26/23 20:06 Hct 35.9 % (37.0-47.0) L 04/26/23 20:00 POC Hct 36 % (37-47) L 04/26/23 20:06 MCV 87.3 fL (80.0-100.0) 04/26/23 20:00 MCH 30.7 pg (25.0-34.0) 04/26/23 20:00 MCHC 35.1 g/dL (32.0-36.0) 04/26/23 20:00 RDW Std Deviation 41.6 fL (36.4-46.3) 04/26/23 20:00 RDW Coeff of Frandy 13.2 % (11.5-14.5) 04/26/23 20:00 Plt Count 236 K/uL (130-400) 04/26/23 20:00 MPV 11.2 fL (9.4-12.4) 04/26/23 20:00 Neutrophils % (Manual) 67 % 04/26/23 20:00 Neutrophils # (Manual) 7.47 K/uL (1.40-6.50) H 04/26/23 20:00 Total Absolute Neuts 7.47 K/uL (1.4-6.5) H 04/26/23 20:00 Lymphocytes # (Manual) 2.68 K/uL (1.2-3.4) 04/26/23 20:00 Total Abs Lymphocytes 2.68 K/uL (1.2-3.4) 04/26/23 20:00 Monocytes # (Manual) 0.22 K/uL (0.11-0.59) 04/26/23 20:00 Eosinophils # (Manual) 0.22 K/uL (0-0.50) 04/26/23 20:00 Metamyelocytes # (Man) 0.56 K/uL (0-0) H 04/26/23 20:00 RBC Morphology Unremarkable 04/26/23 20:00 PT 10.4 Seconds (9.0-12.0) 04/26/23 20:00 INR 0.9 (0.9-1.1) 04/26/23 20:00 APTT 25.8 Seconds (21.0-31.0) 04/26/23 20:00 PTT Ratio 0.9 04/26/23 20:00 POC Sodium 135 mmol/L (135-144) 04/26/23 20:06 Sodium 134 mmol/L (136-145) L 04/26/23 20:00 POC Potassium 3.8 mmol/L (3.3-5.0) 04/26/23 20:06 Potassium 3.8 mmol/L (3.5-5.1) 04/26/23 20:00 POC Chloride 95 mmol/L (101-112) L 04/26/23 20:06 Chloride 97 mmol/L (98-107) L 04/26/23 20:00 Carbon Dioxide 28 mmol/L (21-32) 04/26/23 20:00 POC Total CO2 31 mmol/L (24-31) 04/26/23 20:06 Anion Gap 9 (3-11) 04/26/23 20:00 POC Anion Gap 14.0 mmol/L (16-25) L 04/26/23 20:06 POC BUN 16 mg/dl (7-18) 04/26/23 20:06 BUN 17 mg/dl (6-23) 04/26/23 20:00 Creatinine 0.93 mg/dl (0.6-1.2) 04/26/23 20:00 POC Creatinine 1.0 mg/dl (0.6-1.3) 04/26/23 20:06 Est Cr Clr Drug Dosing 69.2 ml/min 04/26/23 20:00 Est GFR ( Amer) 80.2 ml/min 04/26/23 20:00 Est GFR (Non-Af Amer) 69.2 ml/min 04/26/23 20:00 BUN/Creatinine Ratio 18.3 (10-20) 04/26/23 20:00 Glucose 145 mg/dl (70-99(Fasting)) H 04/26/23 20:00 POC Glucose (other) 148 mg/dl (70-99) H 04/26/23 20:06 Lactate 1.6 mmol/L (0.4-2.0) 04/26/23 20:00 Calcium 9.0 mg/dl (8.6-10.3) 04/26/23 20:00 POC Ioniz Calcium Fran 1.08 mmol/l (1.12-1.32) L 04/26/23 20:06 Magnesium 1.6 mg/dl (1.7-2.4) L 04/26/23 20:00 Total Bilirubin 1.2 mg/dl (0.2-1.0) H 04/26/23 20:00 AST 15 U/L (13-39) 04/26/23 20:00 ALT 14 U/L (7-52) 04/26/23 20:00 Alkaline Phosphatase 115 U/L (34-104) H 04/26/23 20:00 Troponin I High Sens 8.4 pg/ml (0-14) 04/26/23 20:00 Total Protein 6.9 gm/dl (6.0-8.3) 04/26/23 20:00 Albumin 4.0 gm/dl (3.4-5.0) 04/26/23 20:00 Globulin 2.9 gm/dl (2.5-4.0) 04/26/23 20:00 Albumin/Globulin Ratio 1.4 (0.9-2) 04/26/23 20:00 Procalcitonin 0.40 ng/ml (0-0.5) 04/26/23 20:00 Urine Color Yellow 04/26/23 20:56 Urine Appearance Clear (Clear) 04/26/23 20:56 Urine pH 8.5 (4.5-7.5) H 04/26/23 20:56 Ur Specific [place] 1.009 (1.000-1.030) 04/26/23:56 Urine Protein Trace (Negative) H 04/26/23 20:56 Urine Glucose (UA) Negative (Negative) 04/26/23 20: Urine Ketones Negative (Negative) 04/26/23 20:56 Urine Blood 1+ (Negative) H 04/26/23:56 Urine Nitrite Negative (Negative) 04/26/23:56 Urine Bilirubin Negative (Negative) 04/26/23 20:56 Urine Urobilinogen Negative (Negative) 04/26/23 20:56 Ur Leukocyte Esterase 1+ (Negative) H 04/26/23 20:56 Urine WBC (Auto) >30 /hpf (0-5) H 04/26/23 20:56 Urine RBC (Auto) 5-10 /hpf (0-4) H 04/26/23 20:56 U Hyaline Cast (Auto) 1-5 /lpf (0-5) 04/26/23 20:56 U Epithel Cells (Auto) 10-20 /lpf (0-5) H 04/26/23 20:56 Urine Bacteria (Auto) 4+ (Negative) H 04/26/23 20:56 Adenovirus (PCR) Not Detected (NotDetected) 04/26/23 21:40 B. pertussis DNA (PCR) Not Detected (NotDetected) 04/26/23 21:40 B.parapertussis DNA PCR Not Detected (NotDetected) 04/26/23 21:40 C. pneumoniae DNA (PCR) Not Detected (NotDetected) 04/26/23 21:40 Coronavirus OC43 (PCR) Not Detected (NotDetected) 04/26/23 21:40 Coronavirus HKU1 (PCR) Not Detected (NotDetected) 04/26/23 21:40 Coronavirus 229E (PCR) Not Detected (NotDetected) 04/26/23 21:40 SARS-CoV-2 (PCR) Not Detected (NotDetected) 04/26/23 21:40 Coronavirus NL63 (PCR) Not Detected (NotDetected) 04/26/23 21:40 Human Metapneumovir PCR Not Detected (NotDetected) 04/26/23 21:40 Influenza Type A (PCR) Not Detected (NotDetected) 04/26/23 21:40 Influenza Type B (PCR) Not Detected (NotDetected) 04/26/23 21:40 M. pneumoniae (PCR) Not Detected (NotDetected) 04/26/23 21:40 Parainfluenza 1 (PCR) Not Detected (NotDetected) 04/26/23 21:40 Parainfluenza 2 (PCR) Not Detected (NotDetected) 04/26/23 21:40 Parainfluenza 3 (PCR) Not Detected (NotDetected) 04/26/23 21:40 Parainfluenza 4 (PCR) Not Detected (NotDetected) 04/26/23 21:40 RSV (PCR) Not Detected (NotDetected) 04/26/23 21:40 Entero/Rhino (PCR) Not Detected (NotDetected) 04/26/23 21:40 Impressions Chest CTA 04/26/23 20:02 Exam(s): CTA CHEST IV Amt: 117 ml optiray 320 EXAM: CT Angiography Chest With Intravenous Contrast CLINICAL HISTORY: ro PE. TECHNIQUE: Axial computed tomographic angiography images of the chest with intravenous contrast. CTDI is 37.99 mGy and DLP is 2978.54 mGy-cm. Automated exposure control was utilized for the study. A dose lowering technique was utilized adhering to the principles of ALARA. MIP reconstructed images were created and reviewed. COMPARISON: No relevant prior studies available. FINDINGS: Limitations: There is minimal respiratory artifact through the inferior thorax, which mildly degrades image quality on multiple image slices. Pulmonary arteries: Accounting for limitations with respiratory artifact through the lung bases, there is no definite evidence for pulmonary embolism. Aorta: No acute findings. No thoracic aortic aneurysm. Lungs: No definite focal airspace consolidation with minimal curvilinear changes at the lung bases. Pleural space: Unremarkable. No significant effusion. No pneumothorax. Heart: Unremarkable. No cardiomegaly. No significant pericardial effusion. Bones/joints: No acute fracture. No dislocation. Soft tissues: See below. Lymph nodes: Unremarkable. No enlarged lymph nodes. Tubes, lines and devices: A left subclavian portacatheter is noted with the tip in the superior vena cava. There is gas and hyperdense material in the pocket surrounding the subcutaneous access port measuring 4.1 x 4.5 x 3.9 cm. IMPRESSION: 1. Accounting for limitations with respiratory artifact through the lung bases, there is no definite evidence for pulmonary embolism. 2. No definite focal airspace consolidation with minimal curvilinear changes at the lung bases. No pleural effusion or pneumothorax. 3. A left subclavian portacatheter is noted with the tip in the superior vena cava. There is gas and hyperdense material in the pocket surrounding the subcutaneous access port measuring 4.1 x 4.5 x 3.9 cm. The clinical significance of this finding is indeterminant. Electronically signed by: Pranav Marques MD 04/26/23 21:[address] 04/26/23 20:08 CT head/brain wo con CLINICAL HISTORY: gomez Technique: Contiguous axial CT images of the head were acquired from the base of the skull to the vertex without intravenous contrast administration. Images were viewed in brain, subdural and bone windows. Automated dose lowering techniques and/or adjustment according to patient size were utilized for this exam. Comparison: Comparison is made to CT head 04/26/2021 Findings: The ventricles, basal cisterns, and cerebral sulci are normal. There is no acute intracranial hemorrhage or evidence of acute territorial infarction. Neither mass effect, shift of the midline structures, nor abnormal extra-axial fluid collections are shown. Imaged portions of the paranasal sinuses and mastoid air cells are clear. The orbits appear normal. There are no acute fractures of the calvaria or scalp swelling. Impression: No acute intracranial hemorrhage, no evidence of acute territorial infarction or other acute intracranial disease process. ACT 112: Negative or not required by law. Electronically signed by: Sridhar Yang M.D. 04/26/2023 9:48 PM Abdomen/Pelvis CT 04/26/23 20:11 Exam(s): CT ABDOMEN + PELVIS With Contrast IV Amt: 117 ml optiray 320 EXAM: CT Abdomen and Pelvis With Intravenous Contrast CLINICAL HISTORY: RLQ pain fever on chemo. TECHNIQUE: Axial computed tomography images of the abdomen and pelvis with intravenous contrast. CTDI is 37.99 mGy and DLP is 2978.54 mGy-cm. Automated exposure control was utilized for the study. A dose lowering technique was utilized adhering to the principles of ALARA. CONTRAST: Patient received 117 ml optiray 320 of IV contrast COMPARISON: CT abdomen and pelvis with contrast dated 04/26/2021 FINDINGS: Lung bases: Unremarkable. No mass. No consolidation. ABDOMEN: Liver: Stable hepatic steatosis with similar prominence of the right lobe of the liver suggesting a Yolande configuration. Gallbladder and bile ducts: Cholecystectomy. No ductal dilation. Pancreas: Unremarkable. No mass. No ductal dilation. Spleen: Unremarkable. No splenomegaly. Adrenals: Unremarkable. No mass. Kidneys and ureters: New subtle perinephric fat stranding. No abnormal enhancement of the kidneys. No hydronephrosis. Ureterectasis noted bilaterally with subtle hyperenhancement of the urothelium. Stomach and bowel: No bowel obstruction. No bowel mucosal abnormality involving the distal small bowel or proximal colon. Mucosal thickening of the decompressed distal transverse and descending colon is noted in regions of decompression. PELVIS: Appendix: The appendix is suggested along the inferomedial aspect of the cecum without findings to suggest acute appendicitis. Bladder: The bladder is distended without bladder wall thickening or bladder stones. Reproductive: Unremarkable as visualized. ABDOMEN and PELVIS: Intraperitoneal space: Unremarkable. No free air. No significant fluid collection. Bones/joints: No acute fracture. No dislocation. Soft tissues: Unremarkable. Vasculature: Unremarkable. No abdominal aortic aneurysm. Lymph nodes: Unremarkable. No enlarged lymph nodes. IMPRESSION: 1. The appendix is suggested along the inferomedial aspect of the cecum without findings to suggest acute appendicitis. 2. No bowel obstruction. No bowel mucosal abnormality involving the distal small bowel or proximal colon. Mucosal thickening of the decompressed distal transverse and descending colon is noted in regions of decompression; presumed normal variation. No free intraperitoneal fluid or pneumoperitoneum. 3. New subtle perinephric fat stranding. No abnormal enhancement of the kidneys. No hydronephrosis. Ureterectasis noted bilaterally with subtle hyperenhancement of the urothelium. Findings are suspicious for infection of the urothelium without coexisting pyelonephritis. Please correlate with urinalysis, as appropriate. Electronically signed by: Pranav Marques MD 04/26/23 22:01 PM Laboratory Results - last 24 hr 04/26/23 04/26/23 04/26/23 20:00 20:00 20:00 WBC 11.15 H RBC 4.11 L Hgb 12.6 POC Hgb Hct 35.9 L POC Hct MCV 87.3 MCH 30.7 MCHC 35.1 RDW Std Deviation 41.6 RDW Coeff of Frandy 13.2 Plt Count 236 MPV 11.2 Neutrophils % (Manual) 67 Neutrophils # (Manual) 7.47 H Total Absolute Neuts 7.47 H Lymphocytes # (Manual) 2.68 Total Abs Lymphocytes 2.68 Monocytes # (Manual) 0.22 Eosinophils # (Manual) 0.22 Metamyelocytes # (Man) 0.56 H RBC Morphology Unremarkable PT 10.4 INR 0.9 APTT 25.8 PTT Ratio 0.9 POC Sodium Sodium POC Potassium Potassium POC Chloride Chloride Carbon Dioxide POC Total CO2 Anion Gap POC Anion Gap POC BUN BUN Creatinine POC Creatinine Est Cr Clr Drug Dosing Est GFR ( Amer) Est GFR (Non-Af Amer) BUN/Creatinine Ratio Glucose POC Glucose (other) Lactate 1.6 Calcium POC Ioniz Calcium Fran Magnesium Total Bilirubin AST ALT Alkaline Phosphatase Troponin I High Sens Total Protein Albumin Globulin Albumin/Globulin Ratio Procalcitonin Urine Color Urine Appearance Urine pH Ur Specific [place] Urine Protein Urine Glucose (UA) Urine Ketones Urine Blood Urine Nitrite Urine Bilirubin Urine Urobilinogen Ur Leukocyte Esterase Urine WBC (Auto) Urine RBC (Auto) U Hyaline Cast (Auto) U Epithel Cells (Auto) Urine Bacteria (Auto) Adenovirus (PCR) B. pertussis DNA (PCR) B.parapertussis DNA PCR C. pneumoniae DNA (PCR) Coronavirus OC43 (PCR) Coronavirus HKU1 (PCR) Coronavirus 229E (PCR) SARS-CoV-2 (PCR) Coronavirus NL63 (PCR) Human Metapneumovir PCR Influenza Type A (PCR) Influenza Type B (PCR) M. pneumoniae (PCR) Parainfluenza 1 (PCR) Parainfluenza 2 (PCR) Parainfluenza 3 (PCR) Parainfluenza 4 (PCR) RSV (PCR) Entero/Rhino (PCR) 04/26/23 04/26/23 04/26/23 20:00 20:00 20:06 WBC RBC Hgb POC Hgb 12.2 Hct POC Hct 36 L MCV MCH MCHC RDW Std Deviation RDW Coeff of Frandy Plt Count MPV Neutrophils % (Manual) Neutrophils # (Manual) Total Absolute Neuts Lymphocytes # (Manual) Total Abs Lymphocytes Monocytes # (Manual) Eosinophils # (Manual) Metamyelocytes # (Man) RBC Morphology PT INR APTT PTT Ratio POC Sodium 135 Sodium 134 L POC Potassium 3.8 Potassium 3.8 POC Chloride 95 L Chloride 97 L Carbon Dioxide 28 POC Total CO2 31 Anion Gap 9 POC Anion Gap 14.0 L POC BUN 16 BUN 17 Creatinine 0.93 POC Creatinine 1.0 Est Cr Clr Drug Dosing 69.2 Est GFR ( Amer) 80.2 Est GFR (Non-Af Amer) 69.2 BUN/Creatinine Ratio 18.3 Glucose 145 H POC Glucose (other) 148 H Lactate Calcium 9.0 POC Ioniz Calcium Fran 1.08 L Magnesium 1.6 L Total Bilirubin 1.2 H AST 15 ALT 14 Alkaline Phosphatase 115 H Troponin I High Sens 8.4 Total Protein 6.9 Albumin 4.0 Globulin 2.9 Albumin/Globulin Ratio 1.4 Procalcitonin 0.40 Urine Color Urine Appearance Urine pH Ur Specific [place] Urine Protein Urine Glucose (UA) Urine Ketones Urine Blood Urine Nitrite Urine Bilirubin Urine Urobilinogen Ur Leukocyte Esterase Urine WBC (Auto) Urine RBC (Auto) U Hyaline Cast (Auto) U Epithel Cells (Auto) Urine Bacteria (Auto) Adenovirus (PCR) B. pertussis DNA (PCR) B.parapertussis DNA PCR C. pneumoniae DNA (PCR) Coronavirus OC43 (PCR) Coronavirus HKU1 (PCR) Coronavirus 229E (PCR) SARS-CoV-2 (PCR) Coronavirus NL63 (PCR) Human Metapneumovir PCR Influenza Type A (PCR) Influenza Type B (PCR) M. pneumoniae (PCR) Parainfluenza 1 (PCR) Parainfluenza 2 (PCR) Parainfluenza 3 (PCR) Parainfluenza 4 (PCR) RSV (PCR) Entero/Rhino (PCR) 04/26/23 04/26/23 20:56 21:40 WBC RBC Hgb POC Hgb Hct POC Hct MCV MCH MCHC RDW Std Deviation RDW Coeff of Frandy Plt Count MPV Neutrophils % (Manual) Neutrophils # (Manual) Total Absolute Neuts Lymphocytes # (Manual) Total Abs Lymphocytes Monocytes # (Manual) Eosinophils # (Manual) Metamyelocytes # (Man) RBC Morphology PT INR APTT PTT Ratio POC Sodium Sodium POC Potassium Potassium POC Chloride Chloride Carbon Dioxide POC Total CO2 Anion Gap POC Anion Gap POC BUN BUN Creatinine POC Creatinine Est Cr Clr Drug Dosing Est GFR ( Amer) Est GFR (Non-Af Amer) BUN/Creatinine Ratio Glucose POC Glucose (other) Lactate Calcium POC Ioniz Calcium Fran Magnesium Total Bilirubin AST ALT Alkaline Phosphatase Troponin I High Sens Total Protein Albumin Globulin Albumin/Globulin Ratio Procalcitonin Urine Color Yellow Urine Appearance Clear Urine pH 8.5 H Ur Specific [place] 1.009 Urine Protein Trace H Urine Glucose (UA) Negative Urine Ketones Negative Urine Blood 1+ H Urine Nitrite Negative Urine Bilirubin Negative Urine Urobilinogen Negative Ur Leukocyte Esterase 1+ H Urine WBC (Auto) >30 H Urine RBC (Auto) 5-10 H U Hyaline Cast (Auto) 1-5 U Epithel Cells (Auto) 10-20 H Urine Bacteria (Auto) 4+ H Adenovirus (PCR) Not Detected B. pertussis DNA (PCR) Not Detected B.parapertussis DNA PCR Not Detected C. pneumoniae DNA (PCR) Not Detected Coronavirus OC43 (PCR) Not Detected Coronavirus HKU1 (PCR) Not Detected Coronavirus 229E (PCR) Not Detected SARS-CoV-2 (PCR) Not Detected Coronavirus NL63 (PCR) Not Detected Human Metapneumovir PCR Not Detected Influenza Type A (PCR) Not Detected Influenza Type B (PCR) Not Detected M. pneumoniae (PCR) Not Detected Parainfluenza 1 (PCR) Not Detected Parainfluenza 2 (PCR) Not Detected Parainfluenza 3 (PCR) Not Detected Parainfluenza 4 (PCR) Not Detected RSV (PCR) Not Detected Entero/Rhino (PCR) Not Detected ECG Additional Comments: ECG. Normal sinus rhythm with rate of 93. Left axis deviation. Left ventricle hypertrophy. Code Status & VTE Plan VTE Prophylaxis Plan VTE Prophylaxis will be ordered: Yes
--- NOTE | 2023-04-27 00:24 | Emergency Department Note ---
History of Present Illness General Chief complaint: Nausea Stated complaint: STARTED CHEMO,NAUSEA,VOMITING,FEVER Time Seen by Provider: 04/26/23 20:00 History of Present Illness Provider complaint: Fever headache nausea vomiting Onset (ago): day(s) 1 57-year-old female who has a history of breast cancer and received her first chemotherapy treatment on Thursday with Dr. Koch presents emergency department for fever headache nausea and vomiting. Patient reports that her symptoms began today. She reports no hematemesis coffee-ground emesis or bilious vomiting. She also reports a cough. Patient also reports pain in her abdomen. Pain is located primarily in the right lower quadrant and patient reports she is having constipation. Home Medications Medication Instructions Recorded Confirmed Type acetaminophen 500 mg tablet 1,000 mg PO Q6H PRN Pain 06/09/20 04/26/23 History (Tylenol Extra Strength) amlodipine 5 mg tablet 5 mg PO QAM 06/09/20 04/26/23 History ascorbic acid (vitamin C) 500 mg 500 mg PO QAM 06/09/20 04/26/23 History tablet (Vitamin C) baclofen 10 mg tablet 10 mg PO HS PRN Muscle Relaxer 06/09/20 04/26/23 History cholecalciferol (vitamin D3) 125 125 mcg PO 3XWK 06/09/20 04/26/23 History mcg (5,000 unit) tablet (Vitamin D3) hydrochlorothiazide 25 mg tablet 25 mg PO QAM 06/09/20 04/26/23 History ibuprofen 200 mg tablet 800 mg PO Q8H PRN Pain 06/09/20 04/26/23 History losartan 100 mg tablet 100 mg PO QAM 06/09/20 04/26/23 History multivitamin with minerals-folic 1 tab PO QAM 06/09/20 04/26/23 History acid 0.4 mg tablet (One Daily Womens 50 Plus) omeprazole 20 mg tablet,delayed 20 mg PO QAM 06/09/20 04/26/23 History release zinc 50 mg tablet 50 mg PO 3XWK 06/09/20 04/26/23 History albuterol sulfate 90 mcg/actuation 2 puff inhalation Q6H PRN 01/22/23 04/26/23 History aerosol inhaler (Ventolin HFA) Shortness Of Breath Or Wheezing budesonide-formoterol HFA 160 1 inh inhalation BID 01/22/23 04/26/23 History mcg-4.5 mcg/actuation aerosol inhaler (Symbicort) dulaglutide 1.5 mg/0.5 mL 1.5 mg subcut .WEEKLY 01/22/23 04/26/23 History subcutaneous pen injector (Trulicity) ezetimibe 10 mg tablet 10 mg PO DAILY 01/22/23 04/26/23 History loratadine 10 mg tablet 10 mg PO DAILY 01/22/23 04/26/23 History metformin 500 mg tablet 500 mg PO DAILY 01/22/23 04/26/23 History mirabegron 50 mg tablet,extended 50 mg PO DAILY 01/22/23 04/26/23 History release 24 hr (Myrbetriq) mometasone 50 mcg/actuation nasal 2 spray intranasal DAILY 01/22/23 04/26/23 History spray Maalox/Benadryl/Lidocaine 10 ml PO .Q3-4HRS PRN Mouth sore 04/26/23 04/26/23 History pain lorazepam 0.5 mg tablet 0.5 mg PO DIRECTED PRN Anxiety 04/26/23 04/26/23 History sertraline 25 mg tablet 25 mg PO DAILY 04/26/23 04/26/23 History Allergies Allergy/AdvReac Type Severity Reaction Status Date / Time amoxicillin [From Augmentin] Allergy Intermediate Bloody Verified 04/26/23 21:46 diarrhea clavulanic acid Allergy Intermediate Bloody Verified 04/26/23 21:46 [From Augmentin] diarrhea Past Med/Surg History Medical History Acute cholecystitis Diabetes mellitus GERD (gastroesophageal reflux disease) High cholesterol Hypertension Obesity PONV (postoperative nausea and vomiting) Surgical History History of breast biopsy (11/12/22) Right, Core Biopsy History of cholecystectomy (05/2020) History of endometrial ablation (1999) 1999 History of lumpectomy of right breast (12/23/22) 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 Don Radford at [facility] Lumbar disc disorder 2 discs during one procedure, 1994 Family History Mother Uterine cancer hysterectomy Father Lung cancer Brother No problems noted. Daughter No problems noted. Son No problems noted. Son No problems noted. Grandfather (Maternal) Bladder cancer Social History Smoking Status: Never smoker Second Hand Exposure: Yes (father smoked in home); Do You Dip or Chew Tobacco: No; Hx Alcohol Use: Yes Alcohol Intake Frequency: Monthly or Less Alcohol Intake Frequency Comment: social Hx Substance Use: No Preferred Language: Swedish Communication Ability: Effective Visual Impairment: Limited Hearing Ability: Normal Nurse Discharge Planner Required: No Beliefs That Will Affect Care: None Current Living Situation: Other Current Living Situation Comment: friend How many Children do You have: 3 Feels Safe at Home: Yes Childhood Exposure to Second-Hand Smoke: Yes Diet: Weight Watchers caffeine: Yes during the past year weight has: remained stable Dental Care, Regularly: Yes Assistive Devices: Glasses Physical Exam Vital Signs Vital Signs - 24 hr 04/26/23 19:30 04/26/23 19:57 04/26/23 20:06 Temperature 39.1 C H Temperature Source Oral Pulse Rate 103 H Pulse Rate [Apical] Pulse Rate from SpO2 Sensor Pulse Rhythm [Apical] Pulse Strength [Apical] Respiratory Rate 20 Respiratory Effort / Characteristics Non-Labored Respiratory Depth Normal Respiratory Pattern Blood Pressure 99/59 L Blood Pressure [Left Arm] Blood Pressure Mean 72 Blood Pressure Mean [Left Arm] Pulse Oximetry 94 87 L 99 Oxygen Delivery Method Room Air Room Air Nasal Cannula Oxygen Flow Rate Sepsis Recent Fever Within 48 Hours Yes Sepsis New/Unexplained Change in Mental Status No Sepsis Action Taken by Nursing No Action Required 04/26/23 20:03 04/26/23 20:02 04/26/23 21:21 Temperature 37.6 C Temperature Source Oral Pulse Rate 93 H 93 H Pulse Rate [Apical] 104 H Pulse Rate from SpO2 Sensor 92 H Pulse Rhythm [Apical] Regular Pulse Strength [Apical] Normal Respiratory Rate 16 Respiratory Effort / Characteristics Non-Labored Respiratory Depth Normal Respiratory Pattern Regular Blood Pressure 87/35 L Blood Pressure [Left Arm] Blood Pressure Mean 52 Blood Pressure Mean [Left Arm] Pulse Oximetry 98 98 Oxygen Delivery Method Nasal Cannula Nasal Cannula Oxygen Flow Rate 2 2 Sepsis Recent Fever Within 48 Hours Sepsis New/Unexplained Change in Mental Status Sepsis Action Taken by Nursing 04/26/23 19:49 04/26/23 19:52 04/26/23 20:15 Temperature Temperature Source Pulse Rate 90 Pulse Rate [Apical] 85 90 Pulse Rate from SpO2 Sensor 90 Pulse Rhythm [Apical] Regular Regular Pulse Strength [Apical] Respiratory Rate 14 14 18 Respiratory Effort / Characteristics Non-Labored Non-Labored Respiratory Depth Normal Normal Respiratory Pattern Regular Regular Blood Pressure 115/59 L Blood Pressure [Left Arm] 73/51 L 72/34 L Blood Pressure Mean 77 Blood Pressure Mean [Left Arm] 58 46 Pulse Oximetry 90 90 100 Oxygen Delivery Method Room Air Room Air Nasal Cannula Oxygen Flow Rate 2 Sepsis Recent Fever Within 48 Hours Sepsis New/Unexplained Change in Mental Status Sepsis Action Taken by Nursing 04/26/23 20:30 04/26/23 20:45 04/26/23 20:46 Temperature Temperature Source Pulse Rate 95 H 93 H 94 H Pulse Rate [Apical] Pulse Rate from SpO2 Sensor 96 H 93 H 94 H Pulse Rhythm [Apical] Pulse Strength [Apical] Respiratory Rate 24 18 18 Respiratory Effort / Characteristics Respiratory Depth Respiratory Pattern Blood Pressure 106/72 110/55 L Blood Pressure [Left Arm] Blood Pressure Mean 83 73 Blood Pressure Mean [Left Arm] Pulse Oximetry 100 99 99 Oxygen Delivery Method Nasal Cannula Nasal Cannula Oxygen Flow Rate 2 2 Sepsis Recent Fever Within 48 Hours Sepsis New/Unexplained Change in Mental Status Sepsis Action Taken by Nursing 04/26/23 21:00 04/26/23 21:38 04/26/23 21:41 Temperature Temperature Source Pulse Rate 100 H 101 H 105 H Pulse Rate [Apical] Pulse Rate from SpO2 Sensor 100 H 101 H 104 H Pulse Rhythm [Apical] Pulse Strength [Apical] Respiratory Rate 19 17 19 Respiratory Effort / Characteristics Respiratory Depth Respiratory Pattern Blood Pressure 116/72 114/70 Blood Pressure [Left Arm] Blood Pressure Mean 86 84 Blood Pressure Mean [Left Arm] Pulse Oximetry 99 97 97 Oxygen Delivery Method Nasal Cannula Nasal Cannula Oxygen Flow Rate 2 2 Sepsis Recent Fever Within 48 Hours Sepsis New/Unexplained Change in Mental Status Sepsis Action Taken by Nursing 04/26/23 23:00 04/26/23 22:00 04/26/23 22:30 Temperature Temperature Source Pulse Rate 98 H 98 H Pulse Rate [Apical] Pulse Rate from SpO2 Sensor 98 H 98 H Pulse Rhythm [Apical] Pulse Strength [Apical] Respiratory Rate 15 16 Respiratory Effort / Characteristics Non-Labored Respiratory Depth Normal Respiratory Pattern Regular Blood Pressure 97/69 L 103/69 Blood Pressure [Left Arm] Blood Pressure Mean 78 80 Blood Pressure Mean [Left Arm] Pulse Oximetry 95 95 94 Oxygen Delivery Method Nasal Cannula Nasal Cannula Nasal Cannula Oxygen Flow Rate 2 2 2 Sepsis Recent Fever Within 48 Hours Sepsis New/Unexplained Change in Mental Status Sepsis Action Taken by Nursing 04/26/23 23:00 Temperature Temperature Source Pulse Rate 96 H Pulse Rate [Apical] Pulse Rate from SpO2 Sensor 97 H Pulse Rhythm [Apical] Pulse Strength [Apical] Respiratory Rate 16 Respiratory Effort / Characteristics Respiratory Depth Respiratory Pattern Blood Pressure 109/72 Blood Pressure [Left Arm] Blood Pressure Mean 84 Blood Pressure Mean [Left Arm] Pulse Oximetry 95 Oxygen Delivery Method Nasal Cannula Oxygen Flow Rate 2 Sepsis Recent Fever Within 48 Hours Sepsis New/Unexplained Change in Mental Status Sepsis Action Taken by Nursing Physical Exam EYES: Conjunctivae and EOM are normal. Pupils are equal, round, and reactive to light. Right eye exhibits no discharge. Left eye exhibits no discharge. No s cleral icterus. NECK: Normal range of motion. Neck supple. No JVD present. No carotid bruit present. No rigidity. No tracheal deviation and normal range of motion present. CV: Normal rate, regular rhythm, normal heart sounds and intact distal pulses. There is no peripheral edema. Palpable radial pulses bue. PULM/CHEST: Effort normal and breath sounds normal. No respiratory distress. No stridor. He has no wheezes. He has no rales. ABD: The abdomen is soft. There is tenderness palpation of the right lower quadrant. There is no rebound, no guarding. MUSC/SKEL: Normal range of motion. There is no peripheral edema, tenderness or deformity. NEURO: He is alert and oriented to person, place, and time. He has normal strength. No cranial nerve deficit or sensory deficit. GCS eye subscore is 4. GC S verbal subscore is 5. GCS motor subscore is 6. Cerebellar tests wnl. SKIN: Skin is warm and dry. He is not diaphoretic. PSYCH: He has a normal mood and affect. Behavior is normal. Judgment and thought content normal. Female Course Course 1999: The patient was evaluated in room B5. A complete history and physical exam was performed Cardiac monitoring: An order was placed for continuous cardiac monitoring. The monitor shows a rate of 110 with sinus tachycardia rhythm interpreted by me Patient is tachycardic and hypotensive. Patient is hypoxic. Supplemental oxygen via nasal cannula was applied. Sepsis protocols were initiated and the patient will be treated with 30 cc/kg normal saline bolus. 2230: Vital signs stable status post IV fluid resuscitation and while on supplemental oxygen via nasal cannula. Lactic acid white blood cell count within normal limits. CT head normal limits. Urinalysis appears to be infected. Since patient was treated with cefepime. CTA of the chest negative for PE or pneumonia. CT of the abdomen pelvis shows pyelonephritis. Patient be admitted to the [facility] Hospitalist team Dr. Walters notified. Administered Medications Discontinued Medications Acetaminophen (Ofirmev) 1,000 mg in 100 mls @ 400 mls/hr IV NOW STA Stop: 04/26/23 20:15 Last Infusion: 04/26/23 21:00 Dose: 0 mls/hr Documented By: Admin: 04/26/23 20:35 Dose: 400 mls/hr Documented By: SAB Sodium Chloride (Nss) 1,000 mls @ 999 mls/hr IV .Q1H1M ONE Stop: 04/26/23 21:01 Last Infusion: 04/26/23 21:50 Dose: 0 mls/hr Documented By: Admin: 04/26/23 20:31 Dose: 999 mls/hr Documented By: Infusion: 04/26/23 20:31 Dose: 999 mls/hr Documented By: Admin: 04/26/23 20:30 Dose: 999 mls/hr Documented By: SAB Sodium Chloride (Nss) 500 mls @ 999 mls/hr IV .Q31M ONE Stop: 04/26/23 20:59 Last Infusion: 04/26/23 21:50 Dose: 0 mls/hr Documented By: Admin: 04/26/23 20:47 Dose: 999 mls/hr Documented By: SAB Sodium Chloride (Nss) 1,000 mls @ 999 mls/hr IV .Q1H1M ONE Stop: 04/26/23 21:29 Last Infusion: 04/26/23 21:50 Dose: 0 mls/hr Documented By: Admin: 04/26/23 20:32 Dose: 999 mls/hr Documented By: SAB Cefepime HCl (Maxipime) 2,000 mg in 20 mls @ 5 mls/min IV NOW STA; Protocol Stop: 04/26/23 20:32 Last Admin: 04/26/23 20:36 Dose: 5 mls/min Documented By: NADER Ioversol (Optiray 320 500ml) 117 ml IV ONCE ONE Stop: 04/26/23 21:10 Last Admin: 04/26/23 21:10 Dose: 117 ml Documented By: TRAM Ondansetron HCl (Ondansetron Inj 2 Mg/Ml 2 Ml Vial) 4 mg IV NOW STA Stop: 04/26/23 20:25 Last Admin: 04/26/23 20:35 Dose: 4 mg Documented By: NADER Medical Decision Making Laboratory Data Attestation: I reviewed the patient's lab results. 04/26/23 20:00 04/26/23 20:00 Lab Results 04/26/23 04/26/23 04/26/23 Range/Units 20:00 20:00 20:00 WBC 11.15 H (4.8-10.8) K/ul RBC 4.11 L (4.20-5.40) M/uL Hgb 12.6 (12.0-16.0) g/dl POC Hgb (12.0-16.0) g/dl Hct 35.9 L (37.0-47.0) % POC Hct (37-47) % MCV 87.3 (80.0-100.0) fL MCH 30.7 (25.0-34.0) pg MCHC 35.1 (32.0-36.0) g/dL RDW Std Deviation 41.6 (36.4-46.3) fL RDW Coeff of Frandy 13.2 (11.5-14.5) % Plt Count 236 (130-400) K/uL MPV 11.2 (9.4-12.4) fL Neutrophils % (Manual) 67 % Neutrophils # (Manual) 7.47 H (1.40-6.50) K/uL Total Absolute Neuts 7.47 H (1.4-6.5) K/uL Lymphocytes # (Manual) 2.68 (1.2-3.4) K/uL Total Abs Lymphocytes 2.68 (1.2-3.4) K/uL Monocytes # (Manual) 0.22 (0.11-0.59) K/uL Eosinophils # (Manual) 0.22 (0-0.50) K/uL Metamyelocytes # (Man) 0.56 H (0-0) K/uL RBC Morphology Unremarkable PT 10.4 (9.0-12.0) Seconds INR 0.9 (0.9-1.1) APTT 25.8 (21.0-31.0) Seconds PTT Ratio 0.9 POC Sodium (135-144) mmol/L Sodium (136-145) mmol/L POC Potassium (3.3-5.0) mmol/L Potassium (3.5-5.1) mmol/L POC Chloride (101-112) mmol/L Chloride (98-107) mmol/L Carbon Dioxide (21-32) mmol/L POC Total CO2 (24-31) mmol/L Anion Gap (3-11) POC Anion Gap (16-25) mmol/L POC BUN (7-18) mg/dl BUN (6-23) mg/dl Creatinine (0.6-1.2) mg/dl POC Creatinine (0.6-1.3) mg/dl Est Cr Clr Drug Dosing ml/min Est GFR ( Amer) ml/min Est GFR (Non-Af Amer) ml/min BUN/Creatinine Ratio (10-20) Glucose (70-99(Fasting)) mg/dl POC Glucose (other) (70-99) mg/dl Lactate 1.6 (0.4-2.0) mmol/L Calcium (8.6-10.3) mg/dl POC Ioniz Calcium Fran (1.12-1.32) mmol/l Magnesium (1.7-2.4) mg/dl Total Bilirubin (0.2-1.0) mg/dl AST (13-39) U/L ALT (7-52) U/L Alkaline Phosphatase (34-104) U/L Troponin I High Sens (0-14) pg/ml Total Protein (6.0-8.3) gm/dl Albumin (3.4-5.0) gm/dl Globulin (2.5-4.0) gm/dl Albumin/Globulin Ratio (0.9-2) Procalcitonin (0-0.5) ng/ml Urine Color Urine Appearance (Clear) Urine pH (4.5-7.5) Ur Specific [place] (1.000-1.030) Urine Protein (Negative) Urine Glucose (UA) (Negative) Urine Ketones (Negative) Urine Blood (Negative) Urine Nitrite (Negative) Urine Bilirubin (Negative) Urine Urobilinogen (Negative) Ur Leukocyte Esterase (Negative) Urine WBC (Auto) (0-5) /hpf Urine RBC (Auto) (0-4) /hpf U Hyaline Cast (Auto) (0-5) /lpf U Epithel Cells (Auto) (0-5) /lpf Urine Bacteria (Auto) (Negative) Adenovirus (PCR) (NotDetected) B. pertussis DNA (PCR) (NotDetected) B.parapertussis DNA PCR (NotDetected) C. pneumoniae DNA (PCR) (NotDetected) Coronavirus OC43 (PCR) (NotDetected) Coronavirus HKU1 (PCR) (NotDetected) Coronavirus 229E (PCR) (NotDetected) SARS-CoV-2 (PCR) (NotDetected) Coronavirus NL63 (PCR) (NotDetected) Human Metapneumovir PCR (NotDetected) Influenza Type A (PCR) (NotDetected) Influenza Type B (PCR) (NotDetected) M. pneumoniae (PCR) (NotDetected) Parainfluenza 1 (PCR) (NotDetected) Parainfluenza 2 (PCR) (NotDetected) Parainfluenza 3 (PCR) (NotDetected) Parainfluenza 4 (PCR) (NotDetected) RSV (PCR) (NotDetected) Entero/Rhino (PCR) (NotDetected) 04/26/23 04/26/23 04/26/23 Range/Units 20:00 20:00 20:06 WBC (4.8-10.8) K/ul RBC (4.20-5.40) M/uL Hgb (12.0-16.0) g/dl POC Hgb 12.2 (12.0-16.0) g/dl Hct (37.0-47.0) % POC Hct 36 L (37-47) % MCV (80.0-100.0) fL MCH (25.0-34.0) pg MCHC (32.0-36.0) g/dL RDW Std Deviation (36.4-46.3) fL RDW Coeff of Frandy (11.5-14.5) % Plt Count (130-400) K/uL MPV (9.4-12.4) fL Neutrophils % (Manual) % Neutrophils # (Manual) (1.40-6.50) K/uL Total Absolute Neuts (1.4-6.5) K/uL Lymphocytes # (Manual) (1.2-3.4) K/uL Total Abs Lymphocytes (1.2-3.4) K/uL Monocytes # (Manual) (0.11-0.59) K/uL Eosinophils # (Manual) (0-0.50) K/uL Metamyelocytes # (Man) (0-0) K/uL RBC Morphology PT (9.0-12.0) Seconds INR (0.9-1.1) APTT (21.0-31.0) Seconds PTT Ratio POC Sodium 135 (135-144) mmol/L Sodium 134 L (136-145) mmol/L POC Potassium 3.8 (3.3-5.0) mmol/L Potassium 3.8 (3.5-5.1) mmol/L POC Chloride 95 L (101-112) mmol/L Chloride 97 L (98-107) mmol/L Carbon Dioxide 28 (21-32) mmol/L POC Total CO2 31 (24-31) mmol/L Anion Gap 9 (3-11) POC Anion Gap 14.0 L (16-25) mmol/L POC BUN 16 (7-18) mg/dl BUN 17 (6-23) mg/dl Creatinine 0.93 (0.6-1.2) mg/dl POC Creatinine 1.0 (0.6-1.3) mg/dl Est Cr Clr Drug Dosing 69.2 ml/min Est GFR ( Amer) 80.2 ml/min Est GFR (Non-Af Amer) 69.2 ml/min BUN/Creatinine Ratio 18.3 (10-20) Glucose 145 H (70-99(Fasting)) mg/dl POC Glucose (other) 148 H (70-99) mg/dl Lactate (0.4-2.0) mmol/L Calcium 9.0 (8.6-10.3) mg/dl POC Ioniz Calcium Fran 1.08 L (1.12-1.32) mmol/l Magnesium 1.6 L (1.7-2.4) mg/dl Total Bilirubin 1.2 H (0.2-1.0) mg/dl AST 15 (13-39) U/L ALT 14 (7-52) U/L Alkaline Phosphatase 115 H (34-104) U/L Troponin I High Sens 8.4 (0-14) pg/ml Total Protein 6.9 (6.0-8.3) gm/dl Albumin 4.0 (3.4-5.0) gm/dl Globulin 2.9 (2.5-4.0) gm/dl Albumin/Globulin Ratio 1.4 (0.9-2) Procalcitonin 0.40 (0-0.5) ng/ml Urine Color Urine Appearance (Clear) Urine pH (4.5-7.5) Ur Specific [place] (1.000-1.030) Urine Protein (Negative) Urine Glucose (UA) (Negative) Urine Ketones (Negative) Urine Blood (Negative) Urine Nitrite (Negative) Urine Bilirubin (Negative) Urine Urobilinogen (Negative) Ur Leukocyte Esterase (Negative) Urine WBC (Auto) (0-5) /hpf Urine RBC (Auto) (0-4) /hpf U Hyaline Cast (Auto) (0-5) /lpf U Epithel Cells (Auto) (0-5) /lpf Urine Bacteria (Auto) (Negative) Adenovirus (PCR) (NotDetected) B. pertussis DNA (PCR) (NotDetected) B.parapertussis DNA PCR (NotDetected) C. pneumoniae DNA (PCR) (NotDetected) Coronavirus OC43 (PCR) (NotDetected) Coronavirus HKU1 (PCR) (NotDetected) Coronavirus 229E (PCR) (NotDetected) SARS-CoV-2 (PCR) (NotDetected) Coronavirus NL63 (PCR) (NotDetected) Human Metapneumovir PCR (NotDetected) Influenza Type A (PCR) (NotDetected) Influenza Type B (PCR) (NotDetected) M. pneumoniae (PCR) (NotDetected) Parainfluenza 1 (PCR) (NotDetected) Parainfluenza 2 (PCR) (NotDetected) Parainfluenza 3 (PCR) (NotDetected) Parainfluenza 4 (PCR) (NotDetected) RSV (PCR) (NotDetected) Entero/Rhino (PCR) (NotDetected) 04/26/23 04/26/23 Range/Units 20:56 21:40 WBC (4.8-10.8) K/ul RBC (4.20-5.40) M/uL Hgb (12.0-16.0) g/dl POC Hgb (12.0-16.0) g/dl Hct (37.0-47.0) % POC Hct (37-47) % MCV (80.0-100.0) fL MCH (25.0-34.0) pg MCHC (32.0-36.0) g/dL RDW Std Deviation (36.4-46.3) fL RDW Coeff of Frandy (11.5-14.5) % Plt Count (130-400) K/uL MPV (9.4-12.4) fL Neutrophils % (Manual) % Neutrophils # (Manual) (1.40-6.50) K/uL Total Absolute Neuts (1.4-6.5) K/uL Lymphocytes # (Manual) (1.2-3.4) K/uL Total Abs Lymphocytes (1.2-3.4) K/uL Monocytes # (Manual) (0.11-0.59) K/uL Eosinophils # (Manual) (0-0.50) K/uL Metamyelocytes # (Man) (0-0) K/uL RBC Morphology PT (9.0-12.0) Seconds INR (0.9-1.1) APTT (21.0-31.0) Seconds PTT Ratio POC Sodium (135-144) mmol/L Sodium (136-145) mmol/L POC Potassium (3.3-5.0) mmol/L Potassium (3.5-5.1) mmol/L POC Chloride (101-112) mmol/L Chloride (98-107) mmol/L Carbon Dioxide (21-32) mmol/L POC Total CO2 (24-31) mmol/L Anion Gap (3-11) POC Anion Gap (16-25) mmol/L POC BUN (7-18) mg/dl BUN (6-23) mg/dl Creatinine (0.6-1.2) mg/dl POC Creatinine (0.6-1.3) mg/dl Est Cr Clr Drug Dosing ml/min Est GFR ( Amer) ml/min Est GFR (Non-Af Amer) ml/min BUN/Creatinine Ratio (10-20) Glucose (70-99(Fasting)) mg/dl POC Glucose (other) (70-99) mg/dl Lactate (0.4-2.0) mmol/L Calcium (8.6-10.3) mg/dl POC Ioniz Calcium Fran (1.12-1.32) mmol/l Magnesium (1.7-2.4) mg/dl Total Bilirubin (0.2-1.0) mg/dl AST (13-39) U/L ALT (7-52) U/L Alkaline Phosphatase (34-104) U/L Troponin I High Sens (0-14) pg/ml Total Protein (6.0-8.3) gm/dl Albumin (3.4-5.0) gm/dl Globulin (2.5-4.0) gm/dl Albumin/Globulin Ratio (0.9-2) Procalcitonin (0-0.5) ng/ml Urine Color Yellow Urine Appearance Clear (Clear) Urine pH 8.5 H (4.5-7.5) Ur Specific [place] 1.009 (1.000-1.030) Urine Protein Trace H (Negative) Urine Glucose (UA) Negative (Negative) Urine Ketones Negative (Negative) Urine Blood 1+ H (Negative) Urine Nitrite Negative (Negative) Urine Bilirubin Negative (Negative) Urine Urobilinogen Negative (Negative) Ur Leukocyte Esterase 1+ H (Negative) Urine WBC (Auto) >30 H (0-5) /hpf Urine RBC (Auto) 5-10 H (0-4) /hpf U Hyaline Cast (Auto) 1-5 (0-5) /lpf U Epithel Cells (Auto) 10-20 H (0-5) /lpf Urine Bacteria (Auto) 4+ H (Negative) Adenovirus (PCR) Not Detected (NotDetected) B. pertussis DNA (PCR) Not Detected (NotDetected) B.parapertussis DNA PCR Not Detected (NotDetected) C. pneumoniae DNA (PCR) Not Detected (NotDetected) Coronavirus OC43 (PCR) Not Detected (NotDetected) Coronavirus HKU1 (PCR) Not Detected (NotDetected) Coronavirus 229E (PCR) Not Detected (NotDetected) SARS-CoV-2 (PCR) Not Detected (NotDetected) Coronavirus NL63 (PCR) Not Detected (NotDetected) Human Metapneumovir PCR Not Detected (NotDetected) Influenza Type A (PCR) Not Detected (NotDetected) Influenza Type B (PCR) Not Detected (NotDetected) M. pneumoniae (PCR) Not Detected (NotDetected) Parainfluenza 1 (PCR) Not Detected (NotDetected) Parainfluenza 2 (PCR) Not Detected (NotDetected) Parainfluenza 3 (PCR) Not Detected (NotDetected) Parainfluenza 4 (PCR) Not Detected (NotDetected) RSV (PCR) Not Detected (NotDetected) Entero/Rhino (PCR) Not Detected (NotDetected) Imaging Data Radiologist's Impression: Chest CTA 04/26/23 20:02 Exam(s): CTA CHEST IV Amt: 117 ml optiray 320 EXAM: CT Angiography Chest With Intravenous Contrast CLINICAL HISTORY: ro PE. TECHNIQUE: Axial computed tomographic angiography images of the chest with intravenous contrast. CTDI is 37.99 mGy and DLP is 2978.54 mGy-cm. Automated exposure control was utilized for the study. A dose lowering technique was utilized adhering to the principles of ALARA. MIP reconstructed images were created and reviewed. COMPARISON: No relevant prior studies available. FINDINGS: Limitations: There is minimal respiratory artifact through the inferior thorax, which mildly degrades image quality on multiple image slices. Pulmonary arteries: Accounting for limitations with respiratory artifact through the lung bases, there is no definite evidence for pulmonary embolism. Aorta: No acute findings. No thoracic aortic aneurysm. Lungs: No definite focal airspace consolidation with minimal curvilinear changes at the lung bases. Pleural space: Unremarkable. No significant effusion. No pneumothorax. Heart: Unremarkable. No cardiomegaly. No significant pericardial effusion. Bones/joints: No acute fracture. No dislocation. Soft tissues: See below. Lymph nodes: Unremarkable. No enlarged lymph nodes. Tubes, lines and devices: A left subclavian portacatheter is noted with the tip in the superior vena cava. There is gas and hyperdense material in the pocket surrounding the subcutaneous access port measuring 4.1 x 4.5 x 3.9 cm. IMPRESSION: 1. Accounting for limitations with respiratory artifact through the lung bases, there is no definite evidence for pulmonary embolism. 2. No definite focal airspace consolidation with minimal curvilinear changes at the lung bases. No pleural effusion or pneumothorax. 3. A left subclavian portacatheter is noted with the tip in the superior vena cava. There is gas and hyperdense material in the pocket surrounding the subcutaneous access port measuring 4.1 x 4.5 x 3.9 cm. The clinical significance of this finding is indeterminant. Electronically signed by: Pranav Marques MD 04/26/23 21:[address] 04/26/23 20:08 CT head/brain wo con CLINICAL HISTORY: gomez Technique: Contiguous axial CT images of the head were acquired from the base of the skull to the vertex without intravenous contrast administration. Images were viewed in brain, subdural and bone windows. Automated dose lowering techniques and/or adjustment according to patient size were utilized for this exam. Comparison: Comparison is made to CT head 04/26/2021 Findings: The ventricles, basal cisterns, and cerebral sulci are normal. There is no acute intracranial hemorrhage or evidence of acute territorial infarction. Neither mass effect, shift of the midline structures, nor abnormal extra-axial fluid collections are shown. Imaged portions of the paranasal sinuses and mastoid air cells are clear. The o rbits appear normal. There are no acute fractures of the calvaria or scalp swelling. Impression: No acute intracranial hemorrhage, no evidence of acute territorial infarction or other acute intracranial disease process. ACT 112: Negative or not required by law. Electronically signed by: Sridhar Yang M.D. 04/26/2023 9:48 PM Abdomen/Pelvis CT 04/26/23 20:11 Exam(s): CT ABDOMEN + PELVIS With Contrast IV Amt: 117 ml optiray 320 EXAM: CT Abdomen and Pelvis With Intravenous Contrast CLINICAL HISTORY: RLQ pain fever on chemo. TECHNIQUE: Axial computed tomography images of the abdomen and pelvis with intravenous contrast. CTDI is 37.99 mGy and DLP is 2978.54 mGy-cm. Automated exposure control was utilized for the study. A dose lowering technique was utilized adhering to the principles of ALARA. CONTRAST: Patient received 117 ml optiray 320 of IV contrast COMPARISON: CT abdomen and pelvis with contrast dated 04/26/2021 FINDINGS: Lung bases: Unremarkable. No mass. No consolidation. ABDOMEN: Liver: Stable hepatic steatosis with similar prominence of the right lobe of the liver suggesting a Yolande configuration. Gallbladder and bile ducts: Cholecystectomy. No ductal dilation. Pancreas: Unremarkable. No mass. No ductal dilation. Spleen: Unremarkable. No splenomegaly. Adrenals: Unremarkable. No mass. Kidneys and ureters: New subtle perinephric fat stranding. No abnormal enhancement of the kidneys. No hydronephrosis. Ureterectasis noted bilaterally with subtle hyperenhancement of the urothelium. Stomach and bowel: No bowel obstruction. No bowel mucosal abnormality involving the distal small bowel or proximal colon. Mucosal thickening of the decompressed distal transverse and descending colon is noted in regions of decompression. PELVIS: Appendix: The appendix is suggested along the inferomedial aspect of the cecum without findings to suggest acute appendicitis. Bladder: The bladder is distended without bladder wall thickening or bladder stones. Reproductive: Unremarkable as visualized. ABDOMEN and PELVIS: Intraperitoneal space: Unremarkable. No free air. No significant fluid collection. Bones/joints: No acute fracture. No dislocation. Soft tissues: Unremarkable. Vasculature: Unremarkable. No abdominal aortic aneurysm. Lymph nodes: Unremarkable. No enlarged lymph nodes. IMPRESSION: 1. The appendix is suggested along the inferomedial aspect of the cecum without findings to suggest acute appendicitis. 2. No bowel obstruction. No bowel mucosal abnormality involving the distal small bowel or proximal colon. Mucosal thickening of the decompressed distal transverse and descending colon is noted in regions of decompression; presumed normal variation. No free intraperitoneal fluid or pneumoperitoneum. 3. New subtle perinephric fat stranding. No abnormal enhancement of the kidneys. No hydronephrosis. Ureterectasis noted bilaterally with subtle hyperenhancement of the urothelium. Findings are suspicious for infection of the urothelium without coexisting pyelonephritis. Please correlate with urinalysis, as appropriate. Electronically signed by: Pranav Marques MD 04/26/23 22:01 PM ECG Data Attestation: I personally reviewed and interpreted this ECG as follows: Rate (beats per minute): 93 Rhythm: + normal sinus ECG Intervals/blocks: + Normal QRS, + Normal DC and + Normal QT-c ECG ST segments: + Normal ST segments MDM Narrative 2000: The patient was evaluated in room B5. A complete history and physical exam was performed Cardiac monitoring: An order was placed for continuous cardiac monitoring. The monitor shows a rate of 110 with sinus tachycardia rhythm interpreted by me Patient is tachycardic and hypotensive. Patient is hypoxic. Supplemental ox ygen via nasal cannula was applied. Sepsis protocols were initiated and the patient will be treated with 30 cc/kg normal saline bolus. 2230: Vital signs stable status post IV fluid resuscitation and while on supplemental oxygen via nasal cannula. Lactic acid white blood cell count within normal limits. CT head normal limits. Urinalysis appears to be infected. Since patient was treated with cefepime. CTA of the chest negative for PE or pneumonia. CT of the abdomen pelvis shows pyelonephritis. Patient be admitted to the [facility] Hospitalist team Dr. Walters notified. Impression & Plan Pyelonephritis Discharge Plan Visit Data Chief Complaint: Nausea Stated Complaint: STARTED CHEMO,NAUSEA,VOMITING,FEVER ED Provider: Nathaniel Guido Discharge Problem: Pyelonephritis Patient Disposition: Admitted As Inpatient
[2023-04-27] MEDS ORDERED: BACLOFEN 10 MG TAB PO PRN (00:27)
[2023-04-27] MEDS ORDERED: NITROGLYCERIN SL 0.4 MG/TAB TAB SL PRN (00:27)
[2023-04-27] MEDS ORDERED: LORazepam 0.5 MG TAB PO PRN (00:27)
[2023-04-27] MEDS ORDERED: ALBUTEROL HFA 8 GM INHALER INH PRN (00:27)
[2023-04-27] MEDS ORDERED: FIRST - Mouthwash BLM 119 ML PO PRN (00:43)
[2023-04-27] MEDS: SODIUM CHLORIDE 0.9% 1,000 ML IV SCH ×3 (01:32→21:23)
[2023-04-27] MEDS: MoRPHine SULFATE 4 MG/ML 1 ML CARP\\VIAL IV PRN ×2 (01:40→21:47)
[2023-04-27] MEDS: MAGNESIUM SULFATE / D5W 1 GM/100 ML BAG IV SCH ×2 (03:45→05:07)
[2023-04-27] MEDS ORDERED: CEFEPIME 2,000 MG/20 ML VIAL ONE (04:43)
[2023-04-27 04:52] LABS: BUN Creatinine Ratio 21.7 (10-20); Est GFR (African American) 118.9 ml/min; Est GFR (Non-African American) 102.6 ml/min; Potassium 3.5 mmol/L (3.5-5.1)
[2023-04-27] MEDS: CEFEPIME 2,000 MG in SYRINGE 0 ML IV SCH ×3 (04:52→21:07)
[2023-04-27 06:12] LABS: Hematocrit (blood only) 31.6 % (37.0-47.0); Hemoglobin 10.8 g/dl (12.0-16.0); Mean Corpuscular Hemoglobin 30.5 pg (25.0-34.0); Mean Corpuscular Hgb Conc 34.2 g/dL (32.0-36.0); Mean Corpuscular Volume 89.3 fL (80.0-100.0); Mean Platelet Volume 11.3 fL (9.4-12.4); Platelet Count 176 K/uL (130-400); RDW Coefficient of Variation 13.3 % (11.5-14.5); RDW Standard Deviation 43.8 fL (36.4-46.3); Red Blood Count 3.54 M/uL (4.20-5.40); White Blood Count 9.81 K/ul (4.8-10.8)
[2023-04-27 06:13] LABS: ALC (manual) 1.57 K/uL (1.2-3.4); ANC (manual) 7.06 K/uL (1.4-6.5); Basophils % (manual) 1 %; Eosinophils # (manual) 0.39 K/uL (0-0.50); Eosinophils % (manual) 4 %; Lymphocytes # (manual) 1.57 K/uL (1.2-3.4); Lymphocytes % (manual) 16 %; Metamyelocytes # (manual) 0.39 K/uL (0-0); Metamyelocytes % (manual) 4 %; Monocytes # (manual) 0.29 K/uL (0.11-0.59); Monocytes % (manual) 3 %; Neutrophils # (manual) 7.06 K/uL (1.40-6.50); Neutrophils % (manual) 72 %
--- NOTE | 2023-04-27 07:34 | XRay Report ---
XR chest 1V portable CLINICAL HISTORY: Sepsis. COMPARISON STUDY: Chest radiograph November 29, 2021. Chest CT April 26, 2021. FINDINGS: Left subclavian [id number] is in place. Lung volumes are mildly diminished. Lungs are cl ear. There is no pneumothorax or pleural effusion. Cardiac size is normal. Mediastinal contours are n ormal. There is no evidence for pulmonary edema. IMPRESSION: No acute cardiopulmonary findings. ACT 112: Negative or not required by law. Electronically signed by: Shady Rose M.D. 04/27/2023 7:33 AM
[2023-04-27] MEDS: ACETAMINOPHEN 325 MG TAB PO PRN (08:07)
[2023-04-27] MEDS: VIBEGRON 75 MG TAB PO SCH (09:08)
[2023-04-27] MEDS: LORATADINE 10 MG TAB PO SCH (09:08)
[2023-04-27] MEDS: SERTRALINE HCL 50 MG TABLET PO SCH (09:08)
[2023-04-27] MEDS: EZETIMIBE 10 MG TAB PO SCH (09:08)
[2023-04-27] MEDS: ENOXAPARIN INJ 40 MG/0.4 ML SYR SQ SCH (09:08)
[2023-04-27] MEDS: CEROVITE ADV FORMULA TAB PO SCH (09:08)
[2023-04-27] MEDS: ASCORBIC ACID 500 MG TAB PO SCH (09:08)
[2023-04-27] MEDS: PANTOprazole 40 MG TAB PO SCH (09:09)
[2023-04-27] MEDS: ZINC SULFATE 220 MG CAPSULE PO SCH (09:09)
[2023-04-27] MEDS: FLUTICASONE/VILANTEROL 200/25MCG 14 PUFFS/INHALER INH SCH (09:09)
[2023-04-27] MEDS: CHOLECALCIFEROL 5,000 UNITS 125 MCG TAB PO SCH (09:09)
[2023-04-27] MEDS: FLUTICASONE PROPIONATE NA SPR 16 GM BTL NAE SCH (09:10)
[2023-04-27 09:46] LABS: Eosinophils % (manual) 2 %; Lymphocytes % (manual) 24 %; Metamyelocytes % (manual) 5 %; Monocytes % (manual) 2 %
[2023-04-27] MEDS ORDERED: GLUCOSE 10 TAB/TUBE PO PRN (10:30)
[2023-04-27] MEDS ORDERED: GLUCAGON FOR INJ 1 MG VIAL SQ PRN (10:30)
[2023-04-27] MEDS ORDERED: DEXTROSE 50% 50 ML SYRINGE IV PRN (10:30)
[2023-04-27] MEDS ORDERED: CARBOHYDRATES FOR HYPOGLYCEMIA PO PRN (10:30)
[2023-04-27] MEDS ORDERED: GLUCOSE 40% GEL 15 GM TUBE PO PRN (10:30)
--- NOTE | 2023-04-27 10:32 | Hospitalist Progress Note ---
Date of Service April 27, 2023 Assessment & Plan (1) Sepsis: (2) Pyelonephritis: (3) Headache: (4) Breast cancer: (5) Post-operative state: (6) DMII (diabetes mellitus, type 2): (7) Morbid obesity: (8) Mood disorder: Plan 56-year-old female past med history significant for hyperlipidemia, diabetes, history of COVID and long COVID and nocturnal hypoxemia, hypertension, GERD, dysplasia of cervix high-grade, plantar fasciitis, depression, triple-negative breast cancer started chemo last Thursday presents with headache, nausea and fevers. Sepsis Pyelonephritis Meets criteria for sepsis with temp spike, tachycardia, leukocytosis, pyelonephritis She is resuscitated from a sepsis standpoint. We will continue IV cefepime, IV fluids pending clinical improvement and culture results. GNB in urine culture present. Hypoxia-likely related to sepsis syndrome, resolved. History of breast cancer Triple-negative breast cancer S/p right lumpectomy Had first chemo last Thursday Follow-up with heme-onc Diabetes II-chronic, well controlled per A1C on outpatient records. Monitor BSG while in the hospital and add insulin coverage if needed. If BSG within goal for 48 hours, stop BSG checks. Hold outpatient metformin and dulaglutide injections. Hypertension-chronic stable. HCTZ, losartan and amlodpine were held in setting of sepsis. Will restart the last two but hold the HCTZ while getting IVF. Hyperlipidemia-chronic, stable. Cont Zetia per home regimen. Depression-chronic, stable. Cont Zoloft per home regimen. Morbid obesity-continues on Trulicity with comorbid DMII. Continued weight loss recommended. DVT prophylaxis Lovenox Full Code Dispo- telemetry I spent a total [id number] coordinating, documenting, and providing care for this patient excluding time spent in the performance of separately billed services Patricia Rodriguez DO [facility] Hospitalist Admission and Anticipated Discharge Date Admission Date: April 26, 2023 Subjective 57 yo F presents with fevers, chills, diaphoresis, nausea and headache. Headache not improved with Tylenol, Ibuprofen took the edge off somewhat Pt reports two cups coffee and diet mountain dew consistently with a shift to Gatorade, water and Pedialyte in the last week Caffeine withdrawal may be playing some role as well as possible chemo or Neulasta side effect. Trying fioricet now. GUILLEN is diffuse and not focal. Still some nausea IVF running. Denies dysuria or urgency or urine but does endorse flank pain in the past few days and increased urinary frequency I called son and spoke with him at bedside, updating him on the data results and the plan. Physical Exam Physical Exam: CONSTITUTIONAL: obese, vitals as above, generally well-appearing, NAD EYES: normal conjunctivae, no scleral icterus, ENT: external ear and nose normal,MMM NECK: trachea midline, RESPIRATORY: clear to auscultation bilaterally, no crackles, rales or wheezes, normal respiratory effort CARDIOVASCULAR: regular rate and rhythm, S1 and 2 heard without murmurs, gallops or rubs, no JVD, no peripheral edema CHEST: tunneled catheter incision site with some expected post op swelling, ecchymosis and TTP. No fluctuance that would be suggestive of an abscess and no erythema present. GASTROINTESTINAL: soft, nontender, ND, no guarding, no CVA tenderness. MUSCULOSKELETAL: strength 5/5 throughout, head is normocephalic and atraumatic SKIN: warm and dry, NEUROLOGIC: CN 2-12 grossly intact, no sensory deficit, normal cognition, normal speech, no tremor PSYCHIATRIC: alert cooperative and oriented to person, place and time. Euthymic mood, makes good eye contact, language grossly intact, recent and remote memory grossly intact. Results & Data Results & Data Vital Signs (Past 12 Hours) Vital Signs Pulse Pulse Resp BP BP Pulse Ox Pulse Ox 04/27/23 09:07 86 24 114/91 93 04/27/23 07:30 91 H 14 94 04/27/23 07:09 86 04/27/23 05:57 88 19 107/50 L 93 04/27/23 04:07 04/27/23 03:48 87 17 130/75 94 04/27/23 03:00 87 16 114/67 97 04/27/23 03:00 88 11 L 98 04/27/23 02:30 90 13 123/70 98 04/27/23 02:00 95 H 10 L 104/66 97 04/27/23 01:30 91 H 19 121/79 98 04/27/23 01:00 92 H 15 107/69 94 04/27/23 00:30 94 H 17 124/70 96 04/27/23 02:44 96 04/27/23 02:43 16 97 04/27/23 00:00 92 H 17 103/66 95 04/26/23 23:30 94 H 14 105/72 95 04/27/23 00:00 90 04/26/23 23:00 96 H 16 109/72 95 04/26/23 23:00 95 O2 Del Method O2 Del Method O2 Flow Rate O2 Flow Rate 04/27/23 09:07 Room Air 04/27/23 07:30 Room Air 04/27/23 07:09 04/27/23 05:57 Room Air 04/27/23 04:07 Nasal Cannula 2 04/27/23 03:48 Room Air 04/27/23 03:00 Nasal Cannula 2 04/27/23 03:00 04/27/23 02:30 Room Air 04/27/23 02:00 04/27/23 01:30 04/27/23 01:00 04/27/23 00:30 04/27/23 02:44 Nasal Cannula 2 04/27/23 02:43 Nasal Cannula 2 04/27/23 00:00 Nasal Cannula 2 04/26/23 23:30 Nasal Cannula 2 04/27/23 00:00 04/26/23 23:00 Nasal Cannula 2 04/26/23 23:00 Nasal Cannula 2 Laboratory Results Short CBC 04/26/23 04/27/23 Range/Units 20:00 04:03 WBC 11.15 H 9.81 (4.8-10.8) K/ul Hgb 12.6 10.8 L (12.0-16.0) g/dl Hct 35.9 L 31.6 L (37.0-47.0) % Plt Count 236 176 (130-400) K/uL BMP 04/26/23 04/27/23 20:00 04:03 Sodium 134 L 136 Potassium 3.8 3.5 Chloride 97 L 104 Carbon Dioxide 28 26 BUN 17 13 Creatinine 0.93 0.60 D Glucose 145 H 150 H Calcium 9.0 8.0 L Liver Function 04/26/23 Range/Units 20:00 Total Bilirubin 1.2 H (0.2-1.0) mg/dl AST 15 (13-39) U/L ALT 14 (7-52) U/L Alkaline Phosphatase 115 H (34-104) U/L Albumin 4.0 (3.4-5.0) gm/dl Urine 04/26/23 Range/Units 20:56 Urine Color Yellow Urine Appearance Clear (Clear) Urine pH 8.5 H (4.5-7.5) Ur Specific [place] 1.009 (1.000-1.030) Urine Protein Trace H (Negative) Urine Glucose (UA) Negative (Negative) Diagnostic Findings Chest X-Ray 04/26/23 19:57 XR chest 1V portable CLINICAL HISTORY: Sepsis. COMPARISON STUDY: Chest radiograph November 29, 2021. Chest CT April 26, 2021. FINDINGS: Left subclavian Jbblke-m-Umwl is in place. Lung volumes are mildly diminished. Lungs are clear. There is no pneumothorax or pleural effusion. Cardiac size is normal. Mediastinal contours are normal. There is no evidence for pulmonary edema. IMPRESSION: No acute cardiopulmonary findings. ACT 112: Negative or not required by law. Electronically signed by: Shady Rose M.D. 04/27/2023 7:33 AM Medications Administered Current Inpatient Medications Acetaminophen (Acetaminophen 325 Mg Tab) 650 mg PO Q4H PRN PRN Reason: Pain or Fever Stop: 05/27/23 00:26 Last Admin: 04/27/23 08:07 Dose: 650 mg Albuterol (Albuterol Hfa 8 Gm Inhaler) 2 puffs INH Q6H PRN PRN Reason: Shortness Of Breath Or Wheezin Stop: 05/27/23 00:26 Ascorbic Acid (Ascorbic Acid 500 Mg Tab) 500 mg PO QAM FABIANO Stop: 05/27/23 08:59 Last Admin: 04/27/23 09:08 Dose: 500 mg Baclofen (Baclofen 10 Mg Tab) 10 mg PO HS PRN PRN Reason: Muscle Relaxer Stop: 05/27/23 00:26 Dextrose (Dextrose 50% 50 Ml Syringe) 25 - 50 ml IV UD PRN; Protocol PRN Reason: Hypoglycemia Protocol Stop: 05/27/23 10:29 Ezetimibe (Ezetimibe 10 Mg Tab) 10 mg PO DAILY [facility] Stop: 05/27/23 08:59 Last Admin: 04/27/23 09:08 Dose: 10 mg Enoxaparin Sodium (Enoxaparin Inj 40 Mg/0.4 Ml Syr) 40 mg SQ Q24H [facility] Stop: 05/27/23 08:59 Last Admin: 04/27/23 09:08 Dose: 40 mg Fluticasone Propionate (Fluticasone Propionate Na Spr 16 Gm Btl) 2 sprays MIKE DAILY FABIANO Stop: 05/27/23 08:59 Last Admin: 04/27/23 09:10 Dose: 2 sprays Fluticasone/Vilanterol (Fluticasone/Vilanterol 200/25mcg 14 Puffs/Inhaler) 1 puffs INH DAILY FABIANO Stop: 05/27/23 08:59 Last Admin: 04/27/23 09:09 Dose: 1 puffs Glucagon (Glucagon For Inj 1 Mg Vial) 1 mg SQ UD PRN; Protocol PRN Reason: Hypoglycemia Protocol Stop: 05/27/23 10:29 Glucose (Glucose 40% Gel 15 Gm Tube) 15 - 30 gm PO UD PRN; Protocol PRN Reason: Hypoglycemia Protocol Stop: 05/27/23 10:29 Glucose (Glucose 10 Tab/Tube) 4 - 8 tab PO UD PRN; Protocol PRN Reason: Hypoglycemia Treatment Stop: 05/27/23 10:29 Sodium Chloride (Nss) 1,000 mls @ 125 mls/hr IV .Q8H FABIANO Stop: 05/27/23 00:26 Last Admin: 04/27/23 01:32 Dose: 125 mls/hr Cefepime HCl 2,000 mg/ Syringe 20 mls @ 5 mls/min IV Q8H FABIANO; Protocol Stop: 05/07/23 04:29 Last Admin: 04/27/23 04:52 Dose: 5 mls/min Loratadine (Loratadine 10 Mg Tab) 10 mg PO DAILY [facility]AB[facility]O Stop: 05/27/23 08:59 Last Admin: 04/27/23 09:08 Dose: 10 mg Lorazepam (Lorazepam 0.5 Mg Tab) 0.5 mg PO DAILY PRN PRN Reason: Anxiety Stop: 05/27/23 00:26 Miscellaneous (Carbohydrates For Hypoglycemia ) 15 - 30 gm PO UD PRN PRN Reason: Hypoglycemia Protocol Stop: 05/27/23 10:29 Morphine Sulfate (Morphine Sulfate 4 Mg/Ml 1 Ml Carp\Vial) 3 mg IV Q3H PRN PRN Reason: Pain Stop: 05/11/23 00:26 Last Admin: 04/27/23 01:40 Dose: 3 mg Multi-Ingredient Mouthwash/Gargle (First - Mouthwash Blm 119 Ml) 10 ml PO Q4H PRN PRN Reason: Mouth sore pain Stop: 05/27/23 00:42 Multivitamins/Minerals (Cerovite Adv Formula Tab) 1 tab PO QAM [facility] Stop: 05/27/23 08:59 Last Admin: 04/27/23 09:08 Dose: 1 tab Nitroglycerin (Nitroglycerin Sl 0.4 Mg/Tab Tab) 0.4 mg SL Q5M PRN PRN Reason: Chest Pain Stop: 05/27/23 00:26 Ondansetron HCl (Ondansetron Inj 2 Mg/Ml 2 Ml Vial) 4 mg IV Q6H PRN PRN Reason: Nausea Stop: 05/27/23 00:26 Pantoprazole Sodium (Pantoprazole 40 Mg Tab) 40 mg PO QAM [facility] Stop: 05/27/23 08:59 Last Admin: 04/27/23 09:09 Dose: 40 mg Sertraline HCl (Sertraline Hcl 50 Mg Tablet) 25 mg PO DAILY [facility] Stop: 05/27/23 08:59 Last Admin: 04/27/23 09:08 Dose: 25 mg Vibegron (Vibegron 75 Mg Tab) 75 mg PO DAILY [facility] Stop: 05/27/23 08:59 Last Admin: 04/27/23 09:08 Dose: 75 mg Vitamin D (Cholecalciferol 5,000 Units 125 Mcg Tab) 5,000 units PO MoWeFr@0900 [facility] Stop: 05/27/23 08:59 Last Admin: 04/27/23 09:09 Dose: 5,000 units Zinc Sulfate (Zinc Sulfate 220 Mg Capsule) 220 mg PO MoWeFr@0900 [facility] Stop: 05/27/23 08:59 Last Admin: 04/27/23 09:09 Dose: 220 mg (3) Headache Headache chronicity pattern: acute headache Headache type: unspecified Intractability: not intractable Qualified Code(s): R51.9 - Headache, unspecified
[2023-04-27] MEDS ORDERED: IBUPROFEN 800 MG TAB PO STA (10:56)
[2023-04-27] MEDS ORDERED: BUTALBITAL/ACETAMIN/CAFFEINE TAB PO STA (13:00)
[2023-04-27] MEDS: ONDANSETRON INJ 2 MG/ML 2 ML VIAL IV PRN (21:47)
[2023-04-28] MEDS: CEFEPIME 2,000 MG in SYRINGE 0 ML IV SCH (06:00)
[2023-04-28] MEDS: ACETAMINOPHEN 325 MG TAB PO PRN ×3 (06:03→18:45)
--- NOTE | 2023-04-28 07:08 | Electrocardiogram Report ---
Test Reason : Blood Pressure : / mmHG Vent. Rate : 093 BPM Atrial Rate : 093 BPM P-R Int : 190 ms QRS Dur : 114 ms QT Int : 360 ms P-R-T Axes : 046 -43 077 degrees QTc Int : 448 ms Normal sinus rhythm Left axis deviation Left ventricular hypertrophy with repolarization abnormality ( R in aVL , Senath product ) Abnormal ECG When compared with ECG of 29-NOV-2021 15:24, No significant change Confirmed by Aiden Anders [id number] on 04/28/2023 7:08:27 AM Referred By: NO PCP Confirmed By:Aiden Anders
--- NOTE | 2023-04-28 08:08 | Hospitalist Progress Note ---
Date of Service April 28, 2023 Assessment & Plan (1) Sepsis: (2) Pyelonephritis: (3) Headache: (4) Breast cancer: (5) Post-operative state: (6) DMII (diabetes mellitus, type 2): (7) Morbid obesity: (8) Mood disorder: Plan Ms. Caro Bynum is a 56-year-old woman past med history significant for hyperlipidemia, diabetes, history of COVID and long COVID and nocturnal hypoxemia, hypertension, GERD, dysplasia of cervix high-grade, plantar fasciitis, depression, triple-negative breast cancer started chemo s/p port placement 04/21. Initially septic thought to be secondary to pyelo given imaging findings despite lack of symptoms, however, patient's port site looks quite q uestionable with signs suggestive of infection with what appears to be slight dehiscence with considerable drainage and maceration of skin. Plan to broaden with GPC coveage. Involve surgery to assess port site, as well as repeat blood cultures. #Sepsis #?port site infection #Pyelonephritis 2/2 pansensitive proteus Meets criteria for sepsis with temp spike, tachycardia, leukocytosis, pyeloneph ritis She is resuscitated from a sepsis standpoint. -Continue cefepime in interim give concern of uncontrolled site of infection around port -Add vancomycin coverage with new WBC persistent tachycardia and concerning port site -Repeat blood cultures and MRSA nare #Noctural Hypoxia -?underlying ANASTASIA/OHS, overnight pulse ox + nocurnal hypoxia -Start 2L nocturnal O2 #Triple-negative breast cancer S/p right lumpectomy Had first chemo last Thursday Follow-up with heme-onc #Diabetes II -chronic, well controlled per A1C on outpatient records. Monitor BSG while in the hospital and add insulin coverage if needed. If BSG within goal for 48 hours, stop BSG checks. Hold outpatient metformin and dulaglutide injections. #Hypertension chronic stable. HCTZ, losartan and amlodpine were held in setting of sepsis. -Continue to hold HCTZ given pressures stable and ongoing infectious process #Hyperlipidemia chronic, stable. Cont Zetia per home regimen. #Depression chronic, stable. Cont Zoloft per home regimen. #Morbid obesity continues on Trulicity with comorbid DMII. Continued weight loss recommended. DVT prophylaxis Lovenox Full Code Dispo- telemetry Admission and Anticipated Discharge Date Admission Date: April 26, 2023 Subjective Seen at bedside. Visibly looks ill, but mobile. states she feels feverish and port site is uncomfortable and draining Endorses morning headaches, overnight pulse ox +nocturnal hypoxia Review of Systems Review of Systems: All systems reviewed & are unremarkable except as noted in Subjective Physical Exam Constitutional: appears ill and uncomfortable, but ambulating Respiratory: normal respiratory effort, lungs clear to auscultation Cardiovascular: tachycardic regular Skin: left side port incision with considerable drainage, ecchymosis, and maceration of surrounding skin tender to palpation around Results & Data Results & Data Vital Signs (Past 12 Hours) Vital Signs Temp Pulse Pulse Pulse Resp BP BP 04/28/23 07:39 37.0 C 94 H 17 132/84 04/28/23 07:03 98 H 04/28/23 06:00 37.4 C 04/28/23 05:24 98 H 04/28/23 04:41 37.3 C 100 H 20 156/94 H 04/28/23 02:39 90 04/28/23 00:14 37.0 C 92 H 20 116/75 04/28/23 00:00 87 04/27/23 21:20 94 H 04/27/23 23:40 92 H 04/27/23 21:20 37.1 C 94 H 16 128/84 04/27/23 21:10 90 18 143/83 H Pulse Ox Pulse Ox O2 Del Method O2 Del Method 04/28/23 07:39 94 Room Air 04/28/23 07:03 04/28/23 06:00 04/28/23 05:24 90 Room Air 04/28/23 04:41 93 Room Air 04/28/23 02:39 91 Room Air 04/28/23 00:14 92 Room Air 04/28/23 00:00 04/27/23 21:20 04/27/23 23:40 92 Room Air 04/27/23 21:20 94 Room Air 04/27/23 21:10 91 Room Air Laboratory Results Short CBC 04/28/23 Range/Units 07:57 WBC 11.68 H (4.8-10.8) K/ul Hgb 11.9 L (12.0-16.0) g/dl Hct 34.4 L (37.0-47.0) % Plt Count 187 (130-400) K/uL BMP 04/28/23 07:57 Sodium 137 Potassium 4.0 Chloride 104 Carbon Dioxide 26 BUN 11 Creatinine 0.54 L Glucose 118 H Calcium 9.0 Medications Administered Home Medications Medication Instructions Recorded Confirmed Last Taken acetaminophen 500 mg tablet 1,000 mg PO Q6H PRN Pain 06/09/20 04/26/23 04/26/21 (Tylenol Extra Strength) 1000 mg amlodipine 5 mg tablet 5 mg PO QAM 06/09/20 04/26/23 04/25/21 ascorbic acid (vitamin C) 500 mg 500 mg PO QAM 06/09/20 04/26/23 04/25/21 tablet (Vitamin C) baclofen 10 mg tablet 10 mg PO HS PRN Muscle Relaxer 06/09/20 04/26/23 Unknown cholecalciferol (vitamin D3) 125 125 mcg PO 3XWK 06/09/20 04/26/23 04/25/21 mcg (5,000 unit) tablet (Vitamin D3) hydrochlorothiazide 25 mg tablet 25 mg PO QAM 06/09/20 04/26/23 04/25/21 ibuprofen 200 mg tablet 800 mg PO Q8H PRN Pain 06/09/20 04/26/23 04/25/21 800 mg losartan 100 mg tablet 100 mg PO QAM 06/09/20 04/26/23 04/25/21 multivitamin with minerals-folic 1 tab PO QAM 06/09/20 04/26/23 04/25/21 acid 0.4 mg tablet (One Daily Womens 50 Plus) omeprazole 20 mg tablet,delayed 20 mg PO QAM 06/09/20 04/26/23 04/25/21 release zinc 50 mg tablet 50 mg PO 3XWK 06/09/20 04/26/23 04/25/21 albuterol sulfate 90 mcg/actuation 2 puff inhalation Q6H PRN 01/22/23 04/26/23 Unknown aerosol inhaler (Ventolin HFA) Shortness Of Breath Or Wheezing budesonide-formoterol HFA 160 1 inh inhalation BID 01/22/23 04/26/23 Unknown mcg-4.5 mcg/actuation aerosol inhaler (Symbicort) dulaglutide 1.5 mg/0.5 mL 1.5 mg subcut .WEEKLY 01/22/23 04/26/23 [facility] ezetimibe 10 mg tablet 10 mg PO DAILY 01/22/23 04/26/23 Unknown loratadine 10 mg tablet 10 mg PO DAILY 01/22/23 04/26/23 Unknown metformin 500 mg tablet 500 mg PO DAILY 01/22/23 04/26/23 Unknown mirabegron 50 mg tablet,extended 50 mg PO DAILY 01/22/23 04/26/23 Unknown release 24 hr (Myrbetriq) mometasone 50 mcg/actuation nasal 2 spray intranasal DAILY 01/22/23 04/26/23 Unknown spray Maalox/Benadryl/Lidocaine 10 ml PO .Q3-4HRS PRN Mouth sore 04/26/23 04/26/23 Unknown pain lorazepam 0.5 mg tablet 0.5 mg PO DIRECTED PRN Anxiety 04/26/23 04/26/23 Unknown sertraline 25 mg tablet 25 mg PO DAILY 04/26/23 04/26/23 Unknown Active Medications Generic Name Dose Route Start Last Admin Trade Name Ck PRN Reason Stop Dose Admin Acetaminophen 650 mg 04/27/23 00:27 04/28/23 11:07 Acetaminophen 325 Mg Tab PO 05/27/23 00:26 650 mg Q4H PRN Administration Pain or Fever Ascorbic Acid 500 mg 04/27/23 09:00 04/28/23 08:54 Ascorbic Acid 500 Mg Tab PO 05/27/23 08:59 500 mg QAM FABIANO Administration Ezetimibe 10 mg 04/27/23 09:00 04/28/23 08:54 Ezetimibe 10 Mg Tab PO 05/27/23 08:59 10 mg DAILY FABIANO Administration Enoxaparin Sodium 40 mg 04/27/23 09:00 04/28/23 08:54 Enoxaparin Inj 40 Mg/0.4 Ml Syr SQ 05/27/23 08:59 40 mg Q24H FABIANO Administration Fluticasone Propionate 2 sprays 04/27/23 09:00 04/28/23 08:54 Fluticasone Propionate Na Spr 16 Gm Btl MIKE 05/27/23 08:59 2 sprays DAILY FABIANO Administration Fluticasone/Vilanterol 1 puffs 04/27/23 09:00 04/28/23 08:54 Fluticasone/Vilanterol 200/25mcg 14 Puffs/Inhaler INH 05/27/23 08:59 1 puffs DAILY FABIANO Administration Cefepime HCl 2,000 mg/ Syringe 20 mls @ 5 mls/min 04/27/23 04:30 04/28/23 06:00 IV 05/07/23 04:29 5 mls/min Q8H FABIANO Administration Protocol Loratadine 10 mg 04/27/23 09:00 04/28/23 08:54 Loratadine 10 Mg Tab PO 05/27/23 08:59 10 mg DAILY FABIANO Administration Lorazepam 0.5 mg 04/27/23 00:27 04/27/23 17:00 Lorazepam 0.5 Mg Tab PO 05/27/23 00:26 0.5 mg DAILY PRN Administration Anxiety Morphine Sulfate 3 mg 04/27/23 00:27 04/27/23 21:47 Morphine Sulfate 4 Mg/Ml 1 Ml Carp\Vial IV 05/11/23 00:26 3 mg Q3H PRN Administration Pain Multivitamins/Minerals 1 tab 04/27/23 09:00 04/28/23 08:54 Cerovite Adv Formula Tab PO 05/27/23 08:59 1 tab QAM FABIANO Administration Ondansetron HCl 4 mg 04/27/23 00:27 04/28/23 11:10 Ondansetron Inj 2 Mg/Ml 2 Ml Vial IV 05/27/23 00:26 4 mg Q6H PRN Administration Nausea Pantoprazole Sodium 40 mg 04/27/23 09:00 04/28/23 08:53 Pantoprazole 40 Mg Tab PO 05/27/23 08:59 40 mg QAM FABIANO Administration Sertraline HCl 25 mg 04/27/23 09:00 04/28/23 08:52 Sertraline Hcl 50 Mg Tablet PO 05/27/23 08:59 25 mg DAILY FABIANO Administration Vibegron 75 mg 04/27/23 09:00 04/28/23 08:52 Vibegron 75 Mg Tab PO 05/27/23 08:59 75 mg DAILY FABIANO Administration Vitamin D 5,000 units 04/27/23 09:00 04/27/23 09:09 Cholecalciferol 5,000 Units 125 Mcg Tab PO 05/27/23 08:59 5,000 units [id number] FABIANO Administration Zinc Sulfate 220 mg 04/27/23 09:00 10/16/23 09:09 Zinc Sulfate 220 Mg Capsule PO 05/27/23 08:59 220 mg [id number]@0900 FABIANO Administration (3) Headache Headache chronicity pattern: acute headache Headache type: unspecified Intractability: not intractable Qualified Code(s): R51.9 - Headache, unspeci fied
[2023-04-28 08:15] LABS: Hematocrit (blood only) 34.4 % (37.0-47.0); Hemoglobin 11.9 g/dl (12.0-16.0); Mean Corpuscular Hemoglobin 30.4 pg (25.0-34.0); Mean Corpuscular Hgb Conc 34.6 g/dL (32.0-36.0); Mean Corpuscular Volume 87.8 fL (80.0-100.0); Mean Platelet Volume 10.7 fL (9.4-12.4); Nucleated RBC # (auto) 0.03 K/uL (0.00-0.12); Nucleated RBC % (auto) 0.3 %; Platelet Count 187 K/uL (130-400); RDW Coefficient of Variation 13.1 % (11.5-14.5); RDW Standard Deviation 41.5 fL (36.4-46.3); Red Blood Count 3.92 M/uL (4.20-5.40); White Blood Count 11.68 K/ul (4.8-10.8)
[2023-04-28 08:34] LABS: BUN Creatinine Ratio 20.4 (10-20); Creatinine Clr Calc Pharmacy 117.2 ml/min; Est GFR (African American) 123.1 ml/min; Est GFR (Non-African American) 106.2 ml/min; Phosphorus 2.4 mg/dl (2.5-4.9)
[2023-04-28] MEDS: VIBEGRON 75 MG TAB PO SCH (08:52)
[2023-04-28] MEDS: SERTRALINE HCL 50 MG TABLET PO SCH (08:52)
[2023-04-28] MEDS: PANTOprazole 40 MG TAB PO SCH (08:53)
[2023-04-28] MEDS: FLUTICASONE/VILANTEROL 200/25MCG 14 PUFFS/INHALER INH SCH (08:54)
[2023-04-28] MEDS: ASCORBIC ACID 500 MG TAB PO SCH (08:54)
[2023-04-28] MEDS: ENOXAPARIN INJ 40 MG/0.4 ML SYR SQ SCH (08:54)
[2023-04-28] MEDS: FLUTICASONE PROPIONATE NA SPR 16 GM BTL NAE SCH (08:54)
[2023-04-28] MEDS: EZETIMIBE 10 MG TAB PO SCH (08:54)
[2023-04-28] MEDS: LORATADINE 10 MG TAB PO SCH (08:54)
[2023-04-28] MEDS: CEROVITE ADV FORMULA TAB PO SCH (08:54)
[2023-04-28] MEDS ORDERED: VANCOMYCIN HCL 1,750 MG in SODIUM CHLORIDE 0.9% 500 ML IV ONE (10:53)
[2023-04-28] MEDS ORDERED: POT PHOSPHATE MONOBASIC W/ SOD TAB PO STA (10:53)
[2023-04-28] MEDS ORDERED: VANCOMYCIN CONSULT ACTIVE PRN (10:53)
[2023-04-28] MEDS: ONDANSETRON INJ 2 MG/ML 2 ML VIAL IV PRN ×2 (11:10→18:45)
[2023-04-28] MEDS ORDERED: VANCOMYCIN HCL 2,000 MG in SODIUM CHLORIDE 0.9% 500 ML IV ONE (11:15)
[2023-04-28] MEDS: ceFAZolin 2000MG 2,000 MG/15 ML SYR IV SCH ×2 (14:18→21:36)
--- NOTE | 2023-04-28 16:33 | Surgery Consultation ---
Date of Consultation April 28, 2023 Assessment & Plan (1) Sepsis: (2) Malignant neoplasm of central portion of right breast in female, estrogen receptor negative: Plan Caro is currently 1 week s/p insertion of left subclavian aport catheter for chemotherapy. She does have ecchymosis at port site of left chest wall however there is no induration or erythema. CT of chest showed gas fluid collection however this is likely postsurgical. Port placement was difficulty given deep chest wall and there was some bleeding during procedure which required hemostatic agent. She has some drainage from lateral aspect of incision but the incision mostly intact. Drainage looks like liquefied hematoma. Would closely monitor for signs of soft tissue infection at port site (erythema, induration) while continuing IV antibiotics and wait for repeat blood cultures. As of now, would not recommend removal of port. Dr. Radford has seen and examined pateint agrees with above. History of Present Illness Reason for Consultation: possible port infection Requesting Physician: Kacey Marshall MD Attending Physician: Joanna Marshall MD History of Present Illness Caro is a 57 year-old patient who recently underwent outpatient insertion of left aport catheter by Dr. Radford at [facility] who presented to emergency department on 04/26/2023 with fevers and found to have pyelonephritis and UTI. Port site with gas fluid collection on CT of chest and ecchymosis on examination. She is 1 week s/p insertion of port. Our services consulted for possible port infection. She had her first chemotherapy of 4 rounds on Thursday which went well but developed headache during chemo infusion and then developed fevers and generalized weakness over the weekend. States the area of port site is sore and tender. Did not notice any drainage at port site at home since the surgery and just started last evening her in hospital. Allergies Allergy/AdvReac Type Severity Reaction Status Date / Time amoxicillin [From Augmentin] Allergy Intermediate Bloody Verified 04/26/23 21:46 diarrhea clavulanic acid Allergy Intermediate Bloody Verified 04/26/23 21:46 [From Augmentin] diarrhea Home Medications Medication Instructions Recorded Confirmed Type acetaminophen 500 mg tablet 1,000 mg PO Q6H PRN Pain 06/09/20 04/26/23 History (Tylenol Extra Strength) amlodipine 5 mg tablet 5 mg PO QAM 06/09/20 04/26/23 History ascorbic acid (vitamin C) 500 mg 500 mg PO QAM 06/09/20 04/26/23 History tablet (Vitamin C) baclofen 10 mg tablet 10 mg PO HS PRN Muscle Relaxer 06/09/20 04/26/23 History cholecalciferol (vitamin D3) 125 125 mcg PO 3XWK 06/09/20 04/26/23 History mcg (5,000 unit) tablet (Vitamin D3) hydrochlorothiazide 25 mg tablet 25 mg PO QAM 06/09/20 04/26/23 History ibuprofen 200 mg tablet 800 mg PO Q8H PRN Pain 06/09/20 04/26/23 History losartan 100 mg tablet 100 mg PO QAM 06/09/20 04/26/23 History multivitamin with minerals-folic 1 tab PO QAM 06/09/20 04/26/23 History acid 0.4 mg tablet (One Daily Womens 50 Plus) omeprazole 20 mg tablet,delayed 20 mg PO QAM 06/09/20 04/26/23 History release zinc 50 mg tablet 50 mg PO 3XWK 06/09/20 04/26/23 History albuterol sulfate 90 mcg/actuation 2 puff inhalation Q6H PRN 01/22/23 04/26/23 History aerosol inhaler (Ventolin HFA) Shortness Of Breath Or Wheezing budesonide-formoterol HFA 160 1 inh inhalation BID 01/22/23 04/26/23 History mcg-4.5 mcg/actuation aerosol inhaler (Symbicort) dulaglutide 1.5 mg/0.5 mL 1.5 mg subcut .WEEKLY 01/22/23 04/26/23 History subcutaneous pen injector (Trulicity) ezetimibe 10 mg tablet 10 mg PO DAILY 01/22/23 04/26/23 History loratadine 10 mg tablet 10 mg PO DAILY 01/22/23 04/26/23 History metformin 500 mg tablet 500 mg PO DAILY 01/22/23 04/26/23 History mirabegron 50 mg tablet,extended 50 mg PO DAILY 01/22/23 04/26/23 History release 24 hr (Myrbetriq) mometasone 50 mcg/actuation nasal 2 spray intranasal DAILY 01/22/23 04/26/23 History spray Maalox/Benadryl/Lidocaine 10 ml PO .Q3-4HRS PRN Mouth sore 10/15/23 10/15/23 History pain lorazepam 0.5 mg tablet 0.5 mg PO DIRECTED PRN Anxiety 04/26/23 04/26/23 History sertraline 25 mg tablet 25 mg PO DAILY 04/26/23 04/26/23 History Patient History Medical History (Updated 04/27/23 @ 13:28 by Patricia Rodriguez DO) Acute cholecystitis Diabetes mellitus DMII (diabetes mellitus, type 2) GERD (gastroesophageal reflux disease) High cholesterol Hypertension Mood disorder Obesity PONV (postoperative nausea and vomiting) Surgical History (Updated 04/27/23 @ 13:28 by Patricia Rodriguez DO) History of breast biopsy (11/12/22) Right, Core Biopsy History of cholecystectomy (05/2020) History of endometrial ablation (1999) 1999 History of lumpectomy of right breast (12/23/22) Right breast CESAR rn night localized lumpectomy Dr. Don Radford at [facility] Lumbar disc disorder 2 discs during one procedure, 1994 Family History Mother Uterine cancer hysterectomy Father Lung cancer Brother No problems noted. Daughter No problems noted. Son No problems noted. Son No problems noted. Grandfather (Maternal) Bladder cancer Social History Smoking Status: Never smoker Second Hand Exposure: No; Do You Dip or Chew Tobacco: No; Hx Alcohol Use: No Hx Substance Use: No Preferred Language: Latvian Communication Ability: Effective Visual Impairment: Limited Hearing Ability: Normal Carton Inspector Required: No Beliefs That Will Affect Care: None Current Living Situation: Spouse Current Living Situation Comment: lives in home with boyfriend How many Children do You have: 3 Feels Safe at Home: Yes Childhood Exposure to Second-Hand Smoke: Yes Diet: Weight Watchers caffeine: Yes during the past year weight has: remained stable Dental Care, Regularly: Yes Assistive Devices: None Review of Systems Review of Systems: All systems reviewed & are unremarkable except as noted in HPI & below Physical Exam Constitutional: WD/WN, vitals as above cooperative and comfortable; no acute distress and not ill appearing Respiratory: normal respiratory effort; no respiratory distress Chest (Breasts): Chest: + vascular access device or port (Left chest wall with ecchymosis) Additional Comments: Small pinhole opening at lateral aspect of incision with some drainage, non purulent on my exam. Tender to palpation but no erythema or induration to suggest cellulitis/abscess. Drainage looks like liquefied hematoma. Skin: no rashes, warm and dry Psychiatric: A+Ox3, euthymic affect Results & Data Vital Signs (Past 12 Hours) Vital Signs Temp Pulse Pulse Pulse Resp BP Pulse Ox 04/28/23 16:16 37.2 C 94 H 19 135/86 93 04/28/23 15:10 92 H 04/28/23 11:25 37.2 C 83 18 123/82 92 04/28/23 07:39 37.0 C 94 H 17 132/84 94 04/28/23 07:03 98 H 04/28/23 06:00 37.4 C 04/28/23 05:24 98 H 04/28/23 04:41 37.3 C 100 H 20 156/94 H 93 Pulse Ox O2 Del Method O2 Del Method 04/28/23 16:16 Room Air 04/28/23 15:10 04/28/23 11:25 Room Air 04/28/23 07:39 Room Air 04/28/23 07:03 04/28/23 06:00 04/28/23 05:24 90 Room Air 04/28/23 04:41 Room Air Laboratory Results 04/28/23 04/28/23 04/28/23 Range/Units 11:30 07:57 07:57 WBC 11.68 H (4.8-10.8) K/ul RBC 3.92 L (4.20-5.40) M/uL Hgb 11.9 L (12.0-16.0) g/dl Hct 34.4 L (37.0-47.0) % MCV 87.8 (80.0-100.0) fL MCH 30.4 (25.0-34.0) pg MCHC 34.6 (32.0-36.0) g/dL RDW Std Deviation 41.5 (36.4-46.3) fL RDW Coeff of Frandy 13.1 (11.5-14.5) % Plt Count 187 (130-400) K/uL MPV 10.7 (9.4-12.4) fL Absolute Nucleated RBC 0.03 (0.00-0.12) K/uL Nucleated RBC % (auto) 0.3 % Sodium 137 (136-145) mmol/L Potassium 4.0 (3.5-5.1) mmol/L Chloride 104 (98-107) mmol/L Carbon Dioxide 26 (21-32) mmol/L Anion Gap 7 (3-11) BUN 11 (6-23) mg/dl Creatinine 0.54 L (0.6-1.2) mg/dl Est Cr Clr Drug Dosing 117.2 ml/min Est GFR ( Amer) 123.1 ml/min Est GFR (Non-Af Amer) 106.2 ml/min BUN/Creatinine Ratio 20.4 H (10-20) Glucose 118 H (70-99(Fasting)) mg/dl POC Glucose (70-99) mg/dl Calcium 9.0 (8.6-10.3) mg/dl Phosphorus 2.4 L (2.5-4.9) mg/dl Magnesium 2.0 (1.7-2.4) mg/dl Nasal Screen MRSA (PCR) Negative (Negative) 04/27/23 Range/Units 18:58 WBC (4.8-10.8) K/ul RBC (4.20-5.40) M/uL Hgb (12.0-16.0) g/dl Hct (37.0-47.0) % MCV (80.0-100.0) fL MCH (25.0-34.0) pg MCHC (32.0-36.0) g/dL RDW Std Deviation (36.4-46.3) fL RDW Coeff of Frandy (11.5-14.5) % Plt Count (130-400) K/uL MPV (9.4-12.4) fL Absolute Nucleated RBC (0.00-0.12) K/uL Nucleated RBC % (auto) % Sodium (136-145) mmol/L Potassium (3.5-5.1) mmol/L Chloride (98-107) mmol/L Carbon Dioxide (21-32) mmol/L Anion Gap (3-11) BUN (6-23) mg/dl Creatinine (0.6-1.2) mg/dl Est Cr Clr Drug Dosing ml/min Est GFR ( Amer) ml/min Est GFR (Non-Af Amer) ml/min BUN/Creatinine Ratio (10-20) Glucose (70-99(Fasting)) mg/dl POC Glucose 101 H (70-99) mg/dl Calcium (8.6-10.3) mg/dl Phosphorus (2.5-4.9) mg/dl Magnesium (1.7-2.4) mg/dl Nasal Screen MRSA (PCR) (Negative) Diagnostic Findings Exam(s): CTA CHEST IV Amt: 117 ml optiray 320 EXAM: CT Angiography Chest With Intravenous Contrast CLINICAL HISTORY: ro PE. TECHNIQUE: Axial computed tomographic angiography images of the chest with intravenous contrast. CTDI is 37.99 mGy and DLP is 2978.54 mGy-cm. Automated exposure control was utilized for the study. A dose lowering technique was utilized adhering to the principles of ALARA. MIP reconstructed images were created and reviewed. COMPARISON: No relevant prior studies available. FINDINGS: Limitations: There is minimal respiratory artifact through the inferior thorax, which mildly degrades image quality on multiple image slices. Pulmonary arteries: Accounting for limitations with respiratory artifact through the lung bases, there is no definite evidence for pulmonary embolism. Aorta: No acute findings. No thoracic aortic aneurysm. Lungs: No definite focal airspace consolidation with minimal curvilinear changes at the lung bases. Pleural space: Unremarkable. No significant effusion. No pneumothorax. Heart: Unremarkable. No cardiomegaly. No significant pericardial effusion. Bones/joints: No acute fracture. No dislocation. Soft tissues: See below. Lymph nodes: Unremarkable. No enlarged lymph nodes. Tubes, lines and devices: A left subclavian portacatheter is noted with the tip in the superior vena cava. There is gas and hyperdense material in the pocket surrounding the subcutaneous access port measuring 4.1 x 4.5 x 3.9 cm. IMPRESSION: 1. Accounting for limitations with respiratory artifact through the lung bases, there is no definite evidence for pulmonary embolism. 2. No definite focal airspace consolidation with minimal curvilinear changes at the lung bases. No pleural effusion or pneumothorax. 3. A left subclavian portacatheter is noted with the tip in the superior vena cava. There is gas and hyperdense material in the pocket surrounding the subcutaneous access port measuring 4.1 x 4.5 x 3.9 cm. The clinical significance of this finding is indeterminant.
[2023-04-28] MEDS ORDERED: VANCOMYCIN HCL 1,500 MG in SODIUM CHLORIDE 0.9% 500 ML IV SCH (21:00)
[2023-04-28] MEDS: MoRPHine SULFATE 4 MG/ML 1 ML CARP\\VIAL IV PRN (21:33)
[2023-04-29] MEDS: ceFAZolin 2000MG 2,000 MG/15 ML SYR IV SCH ×3 (05:06→20:31)
[2023-04-29] MEDS: MoRPHine SULFATE 4 MG/ML 1 ML CARP\\VIAL IV PRN ×2 (05:06→11:58)
[2023-04-29 05:17] LABS: Hemoglobin 10.8 g/dl (12.0-16.0); Mean Corpuscular Hemoglobin 30.1 pg (25.0-34.0); Mean Corpuscular Hgb Conc 33.8 g/dL (32.0-36.0); Mean Corpuscular Volume 89.1 fL (80.0-100.0); Mean Platelet Volume 10.8 fL (9.4-12.4); Nucleated RBC % (auto) 0.5 %; Platelet Count 204 K/uL (130-400); RDW Coefficient of Variation 13.2 % (11.5-14.5); RDW Standard Deviation 42.9 fL (36.4-46.3); Red Blood Count 3.59 M/uL (4.20-5.40); White Blood Count 19.25 K/ul (4.8-10.8)
[2023-04-29] MEDS ORDERED: POLYETHYLENE (MIRALAX) 17 GM PACK PO PRN (08:15)
--- NOTE | 2023-04-29 09:23 | Surgery Progress Note ---
Date of Service April 29, 2023 Assessment & Plan (1) Sepsis: (2) Malignant neoplasm of central portion of right breast in female, estrogen receptor negative: Plan Caro is currently 1 week s/p insertion of left subclavian aport catheter for chemotherapy. She does have ecchymosis at port site of left chest wall however there is no induration or erythema. CT of chest showed gas fluid collection however this is likely postsurgical. Port placement was difficulty given deep chest wall and there was some bleeding during procedure which required hemostatic agent. She has some drainage from lateral aspect of incision but the incision mostly intact. Drainage looks like liquefied hematoma. Would closely monitor for signs of soft tissue infection at port site (erythema, induration) while continuing IV antibiotics and wait for repeat blood cultures. As of now, would not recommend removal of port. 04/29/2023still no signs of erythema/induration/fluctuance at port site. Cultures have been negative to date. We will continue to hold off on removal of port. If blood cultures come back positive or if hard signs or symptoms of infection at the port site, would remove port. We will continue to follow. Admission and Anticipated Discharge Date Admission Date: April 26, 2023 Subjective Doing okay. Some tenderness at the port site, no redness. No fevers overnight. CT scan overnight demonstrates infection around ureter. Blood cultures have been negative to date. Physical Exam Constitutional: WD/WN, vitals as above cooperative and comfortable; no acute distress Chest (Breasts): Chest: + vascular access device or port (Left chest wall with ecchymosis) Skin: no rashes, warm and dry Psychiatric: A+Ox3, euthymic affect Results & Data Vital Signs (Past 12 Hours) Vital Signs Temp Pulse Pulse Resp BP Pulse Ox O2 Del Method 04/29/23 07:43 37.1 C 97 H 16 111/70 93 Room Air 04/29/23 05:34 36.8 C 84 18 123/80 94 Room Air 04/29/23 00:00 82 04/28/23 23:08 36.9 C 88 18 138/84 94 Room Air
[2023-04-29] MEDS: SERTRALINE HCL 50 MG TABLET PO SCH (09:37)
[2023-04-29] MEDS: CEROVITE ADV FORMULA TAB PO SCH (09:37)
[2023-04-29] MEDS: EZETIMIBE 10 MG TAB PO SCH (09:37)
[2023-04-29] MEDS: LORATADINE 10 MG TAB PO SCH (09:37)
[2023-04-29] MEDS: CHOLECALCIFEROL 5,000 UNITS 125 MCG TAB PO SCH (09:37)
[2023-04-29] MEDS: PANTOprazole 40 MG TAB PO SCH (09:37)
[2023-04-29] MEDS: ASCORBIC ACID 500 MG TAB PO SCH (09:37)
[2023-04-29] MEDS: ZINC SULFATE 220 MG CAPSULE PO SCH (09:37)
[2023-04-29] MEDS: FLUTICASONE PROPIONATE NA SPR 16 GM BTL NAE SCH (09:37)
[2023-04-29] MEDS: VIBEGRON 75 MG TAB PO SCH (09:37)
[2023-04-29] MEDS: FLUTICASONE/VILANTEROL 200/25MCG 14 PUFFS/INHALER INH SCH (09:38)
[2023-04-29] MEDS: ENOXAPARIN INJ 40 MG/0.4 ML SYR SQ SCH (09:38)
[2023-04-29] MEDS: DOCUSATE SODIUM 100 MG CAP PO SCH ×2 (09:40→20:29)
[2023-04-29] MEDS: ACETAMINOPHEN 325 MG TAB PO PRN ×2 (09:44→16:01)
[2023-04-29] MEDS: ONDANSETRON INJ 2 MG/ML 2 ML VIAL IV PRN (14:23)
[2023-04-29] MEDS ORDERED: KETOROLAC TROMETHAMINE 15 MG/ML VIAL IV PRN (14:35)
--- NOTE | 2023-04-29 16:24 | Hospitalist Progress Note ---
Date of Service April 29, 2023 Assessment & Plan (1) Sepsis: (2) Pyelonephritis: (3) Headache: (4) Breast cancer: (5) Post-operative state: (6) DMII (diabetes mellitus, type 2): (7) Morbid obesity: (8) Mood disorder: Plan 56-year-old woman w/ past med history significant for hyperlipidemia, diabetes, history of COVID and long COVID and nocturnal hypoxemia, hypertension, GERD, dysplasia of cervix high-grade, plantar fasciitis, depression, triple-negative breast cancer started chemo s/p port placement 04/21. Initially septic thought to be secondary to pyelo given imaging findings despite lack of symptoms, however, patient's port site looks quite questionable with signs suggestive of infection with what appears to be slight dehiscence with considerable drainage and maceration of skin at presentation. She is being managed for the following: #Sepsis #?port site infection #Pyelonephritis 2/2 pansensitive proteus Meets criteria for sepsis with temp spike, tachycardia, leukocytosis, pyelonephritis She is resuscitated from a sepsis standpoint. -Continue cefazolin in interim give concern of uncontrolled site of infection around port. MRSA negative. -f/u w/ wound Cx and blood culture. #Noctural Hypoxia -?underlying ANASTASIA/OHS, overnight pulse ox + nocurnal hypoxia -Start 2L nocturnal O2 - OP sleep study #Hypertension chronic stable. HCTZ, losartan and amlodpine were held in setting of sepsis. -Continue to hold HCTZ given pressures stable and ongoing infectious process - resume BPs gradually. #Triple-negative breast cancer S/p right lumpectomy Had first chemo last Thursday Follow-up with heme-onc #Diabetes II -chronic, well controlled per A1C on outpatient records. Monitor BSG while in the hospital and add insulin coverage if needed. Hold outpatient metformin and dulaglutide injections. #Hyperlipidemia chronic, stable. Cont Zetia per home regimen. #Depression chronic, stable. Cont Zoloft per home regimen. #Morbid obesity continues on Trulicity with comorbid DMII. Continued weight loss recommended. DVT prophylaxis Lovenox Full Code Dispo- telemetry Admission and Anticipated Discharge Date Admission Date: April 26, 2023 Subjective Patient was seen and examined at bedside. Patient was lying in bed, on room air, resting comfortably, not in any acute distress. Patient reports persistent headache, 5/10 in intensity at bedside, not much relieved with Tylenol and morphine. We will try Toradol, follow the response. Patient reports appropriate pain at left chest port site, overall decreasing pain gradually. Denies fever or chills or acute events overnight. Reports eating okay, last bowel movement on Thursday, encouraged to utilize bowel regimen while on pain medication. Physical Exam Physical Exam: GENERAL: Alert and oriented x3. NAD, on RA. HEENT: No pallor, no icterus. Pupils equal, round and reactive to light. Oral mucosa moist. NECK: No JVD, no neck masses. Left port site, w/ ecchymoses, no erythema/swelling noted. some drainage noted over dressing. HEART: S1 and S2 heard. Regular rate and rhythm. No murmur, no gallop. RESPIRATORY SYSTEM: Normal AP diameter. No accessory muscle use. No wheezing, no crackles. ABDOMEN: Soft, bowel sounds present, nontender, no distention. CENTRAL NERVOUS SYSTEM: No facial droop. Speech is clear. Obeys simple commands. Moves extremities. EXTREMITIES: No edema, no erythema seen. Results & Data Results & Data Vital Signs (Past 12 Hours) Vital Signs Temp Pulse Pulse Resp BP Pulse Ox O2 Del Method 04/29/23 14:30 82 04/29/23 15:36 37.1 C 77 18 127/83 93 Room Air 04/29/23 12:14 37.2 C 79 16 126/84 94 Room Air 04/29/23 06:00 95 H 04/29/23 07:43 37.1 C 97 H 16 111/70 93 Room Air 04/29/23 05:34 36.8 C 84 18 123/80 94 Room Air (3) Headache Headache chronicity pattern: acute headache Headache type: unspecified Intractability: not intractable Qualified Code(s): R51.9 - Headache, unspecified
[2023-04-29] MEDS: KETOROLAC TROMETHAMINE 15 MG/ML VIAL IV PRN (20:29)
[2023-04-30] MEDS: ACETAMINOPHEN 325 MG TAB PO PRN ×3 (01:16→21:19)
[2023-04-30 05:39] LABS: BUN Creatinine Ratio 33.3 (10-20); Calcium 9.2 mg/dl (8.6-10.3); Creatinine Clr Calc Pharmacy 113.7 ml/min; Est GFR (Non-African American) 104.4 ml/min; Magnesium 1.9 mg/dl (1.7-2.4); Phosphorus 4.6 mg/dl (2.5-4.9); Potassium 3.9 mmol/L (3.5-5.1)
[2023-04-30 05:45] LABS: Hematocrit (blood only) 31.1 % (37.0-47.0); Hemoglobin 10.5 g/dl (12.0-16.0); Mean Corpuscular Hemoglobin 30.4 pg (25.0-34.0); Mean Corpuscular Hgb Conc 33.8 g/dL (32.0-36.0); Mean Corpuscular Volume 90.1 fL (80.0-100.0); Mean Platelet Volume 10.7 fL (9.4-12.4); Nucleated RBC # (auto) 0.08 K/uL (0.00-0.12); Nucleated RBC % (auto) 0.3 %; Platelet Count 212 K/uL (130-400); RDW Coefficient of Variation 13.3 % (11.5-14.5); Red Blood Count 3.45 M/uL (4.20-5.40); White Blood Count 25.69 K/ul (4.8-10.8)
[2023-04-30] MEDS: KETOROLAC TROMETHAMINE 15 MG/ML VIAL IV PRN (05:51)
[2023-04-30] MEDS: ceFAZolin 2000MG 2,000 MG/15 ML SYR IV SCH (05:51)
[2023-04-30] MEDS: VIBEGRON 75 MG TAB PO SCH (08:40)
[2023-04-30] MEDS: SERTRALINE HCL 50 MG TABLET PO SCH (08:41)
[2023-04-30] MEDS: CEROVITE ADV FORMULA TAB PO SCH (08:41)
[2023-04-30] MEDS: ENOXAPARIN INJ 40 MG/0.4 ML SYR SQ SCH (08:41)
[2023-04-30] MEDS: EZETIMIBE 10 MG TAB PO SCH (08:41)
[2023-04-30] MEDS: PANTOprazole 40 MG TAB PO SCH (08:41)
[2023-04-30] MEDS: FLUTICASONE/VILANTEROL 200/25MCG 14 PUFFS/INHALER INH SCH (08:41)
[2023-04-30] MEDS: LORATADINE 10 MG TAB PO SCH (08:41)
[2023-04-30] MEDS: ASCORBIC ACID 500 MG TAB PO SCH (08:41)
[2023-04-30] MEDS: FLUTICASONE PROPIONATE NA SPR 16 GM BTL NAE SCH (08:42)
[2023-04-30] MEDS: DOCUSATE SODIUM 100 MG CAP PO SCH ×2 (08:42→21:16)
--- NOTE | 2023-04-30 10:25 | Surgery Progress Note ---
Date of Service April 30, 2023 Assessment & Plan (1) Sepsis: (2) Malignant neoplasm of central portion of right breast in female, estrogen receptor negative: Plan Caro is currently 9 days s/p insertion of left subclavian aport catheter for chemotherapy. She does have ecchymosis at port site of left chest wall however there is no induration or erythema. CT of chest showed gas fluid collection however this is likely postsurgical. Port placement was difficulty given deep chest wall and there was some bleeding during procedure which required hemostatic agent. She has some drainage from lateral aspect of incision but the incision mostly intact. Drainage looks like liquefied hematoma. Would closely monitor for signs of soft tissue infection at port site (erythema, induration) while continuing IV antibiotics and wait for repeat blood cultures. 04/30/2023still no signs of erythema/induration at port site. There was moderate amount of liquified hematoma drained from port site today on exam. No purulence. Subjectively feverish with chills and profuse sweating last night but no documented fevers since 04/26/23. Leukocytosis continues to increase up to 25k today. ? if secondary to Neulasta after her chemotherapy 1 week ago today. Cultures have been negative to date. We will continue to hold off on removal of port. If blood cultures come back positive or if hard signs or symptoms of infection at the port site, would remove port. We will continue to follow. Dr. Radford has seen and examined patient, agrees with above. Admission and Anticipated Discharge Date Admission Date: April 26, 2023 Subjective had sweating last night and might have had another fever but vitals not taken at that time felt chilled and hot some pressure/discomfort at port site Physical Exam Constitutional: WD/WN, vitals as above cooperative and comfortable; no acute distress and not ill appearing Respiratory: normal respiratory effort; no respiratory distress Chest (Breasts): Chest: + vascular access device or port Additional Comments: Left chest wall port with improving ecchymosis. There is no induration. There is some clear to bloody drainage from lateral aspect of incision. With compression of the tissue surrounding incision moderate amount of nonpurulent liquified hematoma was drained from the incision. There was improvement in the site of port after all fluid removed. There was no odor and there was no purulence. Psychiatric: A+Ox3, euthymic affect Results & Data Vital Signs (Past 12 Hours) Vital Signs Temp Pulse Pulse Pulse Resp BP Pulse Ox 04/30/23 09:00 04/30/23 07:47 36.9 C 77 16 121/78 95 04/30/23 02:16 36.9 C 82 18 158/91 H 96 04/30/23 00:00 74 O2 Del Method 04/30/23 09:00 Room Air 04/30/23 07:47 Room Air 04/30/23 02:16 Room Air 04/30/23 00:00 Laboratory Results 04/30/23 04/30/23 04/30/23 Range/Units 09:11 08:15 04:49 WBC (4.8-10.8) K/ul RBC (4.20-5.40) M/uL Hgb (12.0-16.0) g/dl Hct (37.0-47.0) % MCV (80.0-100.0) fL MCH (25.0-34.0) pg MCHC (32.0-36.0) g/dL RDW Std Deviation (36.4-46.3) fL RDW Coeff of Frandy (11.5-14.5) % Plt Count (130-400) K/uL MPV (9.4-12.4) fL Absolute Nucleated RBC (0.00-0.12) K/uL Nucleated RBC % (auto) % Sodium 139 (136-145) mmol/L Potassium 3.9 (3.5-5.1) mmol/L Chloride 105 (98-107) mmol/L Carbon Dioxide 30 (21-32) mmol/L Anion Gap 4 (3-11) BUN 19 (6-23) mg/dl Creatinine 0.57 L (0.6-1.2) mg/dl Est Cr Clr Drug Dosing 113.7 ml/min Est GFR ( Amer) 121.0 ml/min Est GFR (Non-Af Amer) 104.4 ml/min BUN/Creatinine Ratio 33.3 H (10-20) Glucose 115 H (70-99(Fasting)) mg/dl POC Glucose 128 H (70-99) mg/dl Calcium 9.2 (8.6-10.3) mg/dl Phosphorus 4.6 D (2.5-4.9) mg/dl Magnesium 1.9 (1.7-2.4) mg/dl Procalcitonin 0.57 H (0-0.5) ng/ml 04/30/23 04/29/23 04/29/23 Range/Units 04:49 20:18 17:47 WBC 25.69 H (4.8-10.8) K/ul RBC 3.45 L (4.20-5.40) M/uL Hgb 10.5 L (12.0-16.0) g/dl Hct 31.1 L (37.0-47.0) % MCV 90.1 (80.0-100.0) fL MCH 30.4 (25.0-34.0) pg MCHC 33.8 (32.0-36.0) g/dL RDW Std Deviation 44.0 (36.4-46.3) fL RDW Coeff of Frandy 13.3 (11.5-14.5) % Plt Count 212 (130-400) K/uL MPV 10.7 (9.4-12.4) fL Absolute Nucleated RBC 0.08 (0.00-0.12) K/uL Nucleated RBC % (auto) 0.3 % Sodium (136-145) mmol/L Potassium (3.5-5.1) mmol/L Chloride (98-107) mmol/L Carbon Dioxide (21-32) mmol/L Anion Gap (3-11) BUN (6-23) mg/dl Creatinine (0.6-1.2) mg/dl Est Cr Clr Drug Dosing ml/min Est GFR ( Amer) ml/min Est GFR (Non-Af Amer) ml/min BUN/Creatinine Ratio (10-20) Glucose (70-99(Fasting)) mg/dl POC Glucose 169 H 103 H (70-99) mg/dl Calcium (8.6-10.3) mg/dl Phosphorus (2.5-4.9) mg/dl Magnesium (1.7-2.4) mg/dl Procalcitonin (0-0.5) ng/ml 04/29/23 04/29/23 Range/Units 12:22 08:22 WBC (4.8-10.8) K/ul RBC (4.20-5.40) M/uL Hgb (12.0-16.0) g/dl Hct (37.0-47.0) % MCV (80.0-100.0) fL MCH (25.0-34.0) pg MCHC (32.0-36.0) g/dL RDW Std Deviation (36.4-46.3) fL RDW Coeff of Frandy (11.5-14.5) % Plt Count (130-400) K/uL MPV (9.4-12.4) fL Absolute Nucleated RBC (0.00-0.12) K/uL Nucleated RBC % (auto) % Sodium (136-145) mmol/L Potassium (3.5-5.1) mmol/L Chloride (98-107) mmol/L Carbon Dioxide (21-32) mmol/L Anion Gap (3-11) BUN (6-23) mg/dl Creatinine (0.6-1.2) mg/dl Est Cr Clr Drug Dosing ml/min Est GFR ( Amer) ml/min Est GFR (Non-Af Amer) ml/min BUN/Creatinine Ratio (10-20) Glucose (70-99(Fasting)) mg/dl POC Glucose 86 172 H (70-99) mg/dl Calcium (8.6-10.3) mg/dl Phosphorus (2.5-4.9) mg/dl Magnesium (1.7-2.4) mg/dl Procalcitonin (0-0.5) ng/ml Microbiology 04/28/23 12:00 Gram Stain - Final Chest Aerobic and Anaerobic Culture - Preliminary Pin-point growth present, reincubating. 04/28/23 11:04 Aerobic Blood Culture - Preliminary Blood No growth in Aerobic bottle after 24 hours. Anaerobic Blood Culture - Preliminary No growth in Anaerobic bottle after 24 hours. 04/28/23 11:04 Aerobic Blood Culture - Preliminary Blood No growth in Aerobic bottle after 24 hours. Anaerobic Blood Culture - Preliminary No growth in Anaerobic bottle after 24 hours.
[2023-04-30] MEDS: levoFLOXacin/D5W 750 MG/150 ML BAG IV SCH (11:32)
[2023-04-30] MEDS: ONDANSETRON INJ 2 MG/ML 2 ML VIAL IV PRN (13:06)
--- NOTE | 2023-04-30 15:47 | Hospitalist Progress Note ---
Date of Service April 30, 2023 Assessment & Plan (1) Sepsis: (2) Pyelonephritis: (3) Headache: (4) Breast cancer: (5) Post-operative state: (6) DMII (diabetes mellitus, type 2): (7) Morbid obesity: (8) Mood disorder: Plan 56-year-old woman w/ past med history significant for hyperlipidemia, diabetes, history of COVID and long COVID and nocturnal hypoxemia, hypertension, GERD, dysplasia of cervix high-grade, plantar fasciitis, depression, triple-negative breast cancer started chemo s/p port placement 04/21. Initially septic thought to be secondary to pyelo given imaging findings despite lack of symptoms, however, patient's port site looks quite questionable with signs suggestive of infection with what appears to be slight dehiscence with considerable drainage and maceration of skin at presentation. She is being managed for the following: #Sepsis #?port site infection #Pyelonephritis 2/2 pansensitive proteus Meets criteria for sepsis with temp spike, tachycardia, leukocytosis, pyelonephritis She is resuscitated from a sepsis standpoint. Was on cefazolin, patient continued to feel unwell and had feverish/sweaty event overnight. WBC and procalcitonin uptrending. DC cefazolin 04/28-04/30, start Levaquin 04/30 Labs in AM, continue to monitor clinical response. f/u w/ wound Cx and blood culture. So far no growth. #Noctural Hypoxia -?underlying ANASTASIA/OHS, overnight pulse ox + nocurnal hypoxia -Start 2L nocturnal O2 - OP sleep study #Hypertension chronic stable. HCTZ, losartan and amlodpine were held in setting of sepsis. -Continue to hold HCTZ given pressures stable and ongoing infectious process - resume BP meds gradually. #Triple-negative breast cancer S/p right lumpectomy Had first chemo last Thursday [employer] Follow-up with heme-onc #Diabetes II -chronic, well controlled per A1C on outpatient records. Monitor BSG while in the hospital and add insulin coverage if needed. Hold outpatient metformin and dulaglutide injections. #Hyperlipidemia chronic, stable. Cont Zetia per home regimen. #Depression chronic, stable. Cont Zoloft per home regimen. #Morbid obesity continues on Trulicity with comorbid DMII. Continued weight loss recommended. DVT prophylaxis Lovenox Full Code Dispo- telemetry, await bl cx and clinical improvement. Admission and Anticipated Discharge Date Admission Date: April 26, 2023 Subjective Patient was seen and examined at bedside. Patient was lying in bed, on room air, resting comfortably, not in any acute distress. Patient reports feeling feverish and sweaty overnight x 2. WBC has been trending up, procalcitonin trending up. Discussed with the patient, starting Levaquin. Stop cefazolin. Patient with some improvement in her headache, continued pressure/pain sensation at port site. Physical Exam Physical Exam: GENERAL: Alert and oriented x3. NAD, on RA. HEENT: No pallor, no icterus. Pupils equal, round and reactive to light. Oral mucosa moist. NECK: No JVD, no neck masses. Left port site, w/ ecchymoses, no erythema/swelling noted. some drainage noted over dressing. HEART: S1 and S2 heard. Regular rate and rhythm. No murmur, no gallop. RESPIRATORY SYSTEM: Normal AP diameter. No accessory muscle use. No wheezing, no crackles. ABDOMEN: Soft, bowel sounds present, nontender, no distention. CENTRAL NERVOUS SYSTEM: No facial droop. Speech is clear. Obeys simple commands. Moves extremities. EXTREMITIES: No edema, no erythema seen. Results & Data Results & Data Vital Signs (Past 12 Hours) Vital Signs Temp Pulse Pulse Resp BP Pulse Ox Pulse Ox 04/30/23 15:02 37.0 C 69 18 137/86 94 04/30/23 15:02 83 04/30/23 12:00 95 04/30/23 12:20 37.1 C 85 18 138/85 95 04/30/23 07:30 70 04/30/23 09:00 04/30/23 07:47 36.9 C 77 16 121/78 95 O2 Del Method O2 Del Method 04/30/23 15:02 Room Air 04/30/23 15:02 04/30/23 12:00 Room Air 04/30/23 12:20 Room Air 04/30/23 07:30 04/30/23 09:00 Room Air 04/30/23 07:47 Room Air (3) Headache Headache chronicity pattern: acute headache Headache type: unspecified Intractability: not intractable Qualified Code(s): R51.9 - Headache, unspecified
[2023-05-01 05:44] LABS: Hematocrit (blood only) 31.6 % (37.0-47.0); Hemoglobin 10.5 g/dl (12.0-16.0); Mean Corpuscular Hgb Conc 33.2 g/dL (32.0-36.0); Mean Corpuscular Volume 90.3 fL (80.0-100.0); Mean Platelet Volume 10.6 fL (9.4-12.4); Nucleated RBC # (auto) 0.08 K/uL (0.00-0.12); Nucleated RBC % (auto) 0.3 %; Platelet Count 221 K/uL (130-400); RDW Coefficient of Variation 13.6 % (11.5-14.5); RDW Standard Deviation 44.4 fL (36.4-46.3); White Blood Count 29.52 K/ul (4.8-10.8)
[2023-05-01 05:46] LABS: BUN Creatinine Ratio 25.8 (10-20); Calcium 8.9 mg/dl (8.6-10.3); Creatinine Clr Calc Pharmacy 104.5 ml/min; Est GFR (African American) 117.7 ml/min; Est GFR (Non-African American) 101.5 ml/min; Phosphorus 4.8 mg/dl (2.5-4.9); Potassium 3.7 mmol/L (3.5-5.1)
[2023-05-01] MEDS: LORATADINE 10 MG TAB PO SCH (08:23)
[2023-05-01] MEDS: SERTRALINE HCL 50 MG TABLET PO SCH (08:23)
[2023-05-01] MEDS: DOCUSATE SODIUM 100 MG CAP PO SCH ×2 (08:23→20:14)
[2023-05-01] MEDS: LOSARTAN POTASSIUM 50 MG TAB PO SCH (08:23)
[2023-05-01] MEDS: CEROVITE ADV FORMULA TAB PO SCH (08:23)
[2023-05-01] MEDS: EZETIMIBE 10 MG TAB PO SCH (08:23)
[2023-05-01] MEDS: CHOLECALCIFEROL 5,000 UNITS 125 MCG TAB PO SCH (08:23)
[2023-05-01] MEDS: PANTOprazole 40 MG TAB PO SCH (08:23)
[2023-05-01] MEDS: amLODIPine BESYLATE 5 MG TAB PO SCH (08:23)
[2023-05-01] MEDS: VIBEGRON 75 MG TAB PO SCH (08:24)
[2023-05-01] MEDS: ZINC SULFATE 220 MG CAPSULE PO SCH (08:24)
[2023-05-01] MEDS: ASCORBIC ACID 500 MG TAB PO SCH (08:24)
[2023-05-01] MEDS: FLUTICASONE PROPIONATE NA SPR 16 GM BTL NAE SCH (08:24)
[2023-05-01] MEDS: FLUTICASONE/VILANTEROL 200/25MCG 14 PUFFS/INHALER INH SCH (08:24)
[2023-05-01] MEDS: ENOXAPARIN INJ 40 MG/0.4 ML SYR SQ SCH (08:24)
[2023-05-01] MEDS: ACETAMINOPHEN 325 MG TAB PO PRN ×2 (08:27→17:31)
[2023-05-01] MEDS: levoFLOXacin/D5W 750 MG/150 ML BAG IV SCH (10:54)
[2023-05-01] MEDS: KETOROLAC TROMETHAMINE 15 MG/ML VIAL IV PRN (10:56)
--- NOTE | 2023-05-01 11:47 | Surgery Progress Note ---
Date of Service May 01, 2023 Assessment & Plan (1) Sepsis: (2) Malignant neoplasm of central portion of right breast in female, estrogen receptor negative: Plan Caro is currently 10 days s/p insertion of left subclavian aport catheter for chemotherapy. She does have ecchymosis at port site of left chest wall however there is no induration or erythema. CT of chest showed gas fluid collection however this is likely postsurgical. Port placement was difficult given deep chest wall and there was some bleeding during procedure which required hemostatic agent. 05/01/2023still no signs of erythema/induration at port site. There was moderate amount of liquified hematoma drained from port site yesterday on exam. No purulence. no documented fevers since 04/26/23. Leukocytosis continues to increase up to 29k today. ? if secondary to Neulasta (administered last ). Blood Cultures (x2) have been negative to date. We will continue to hold off on removal of port. If blood cultures come back positive or if hard signs or symptoms of infection at the port site, would remove port. Discussed with Dr. Radford who agrees with above. Admission and Anticipated Discharge Date Admission Date: April 26, 2023 Subjective feeling slightly better today, no sweats last night having soreness on the left chest wall slightly better than yesterday does not look as swollen today bruising looks to be improving has an appetite today Physical Exam Constitutional: WD/WN, vitals as above cooperative and comfortable; no acute distress and not ill appearing Chest (Breasts): Chest: + vascular access device or port Additional Comments: Left chest wall with aport , there is ecchymosis present surrounding incision site but slowly improving no induration, fluctuance present but no purulent drainage upon palpation (likely liquefied hematoma as evacuated yesterday on exam) no warmth to touch Skin: no rashes, warm and dry Psychiatric: A+Ox3, euthymic affect Results & Data Vital Signs (Past 12 Hours) Vital Signs Temp Pulse Pulse Resp BP Pulse Ox O2 Del Method 05/01/23 08:00 Room Air 05/01/23 08:29 36.9 C 82 20 117/78 97 Room Air, Nasal Cannula 05/01/23 07:09 72 05/01/23 04:16 36.9 C 72 20 136/85 98 Nasal Cannula O2 Flow Rate 05/01/23 08:00 05/01/23 08:29 2 05/01/23 07:09 05/01/23 04:16 2 Laboratory Results 05/01/23 05/01/23 05/01/23 Range/Units Unknown 07:54 04:58 WBC (4.8-10.8) K/ul RBC (4.20-5.40) M/uL Hgb (12.0-16.0) g/dl Hct (37.0-47.0) % MCV (80.0-100.0) fL MCH (25.0-34.0) pg MCHC (32.0-36.0) g/dL RDW Std Deviation (36.4-46.3) fL RDW Coeff of Frandy (11.5-14.5) % Plt Count (130-400) K/uL MPV (9.4-12.4) fL Absolute Nucleated RBC (0.00-0.12) K/uL Nucleated RBC % (auto) % Sodium 139 (136-145) mmol/L Potassium 3.7 (3.5-5.1) mmol/L Chloride 102 (98-107) mmol/L Carbon Dioxide 29 (21-32) mmol/L Anion Gap 8 (3-11) BUN 16 (6-23) mg/dl Creatinine 0.62 (0.6-1.2) mg/dl Est Cr Clr Drug Dosing 104.5 ml/min Est GFR ( Amer) 117.7 ml/min Est GFR (Non-Af Amer) 101.5 ml/min BUN/Creatinine Ratio 25.8 H (10-20) Glucose 100 H (70-99(Fasting)) mg/dl POC Glucose 117 H (70-99) mg/dl Calcium 8.9 (8.6-10.3) mg/dl Phosphorus 4.8 (2.5-4.9) mg/dl Magnesium 2.0 (1.7-2.4) mg/dl Stl C. diff Tox B Gene Negative Cdiff Gene (Neg) 05/01/23 04/30/23 04/30/23 Range/Units 04:58 20:09 17:36 WBC 29.52 H (4.8-10.8) K/ul RBC 3.50 L (4.20-5.40) M/uL Hgb 10.5 L (12.0-16.0) g/dl Hct 31.6 L (37.0-47.0) % MCV 90.3 (80.0-100.0) fL MCH 30.0 (25.0-34.0) pg MCHC 33.2 (32.0-36.0) g/dL RDW Std Deviation 44.4 (36.4-46.3) fL RDW Coeff of Frandy 13.6 (11.5-14.5) % Plt Count 221 (130-400) K/uL MPV 10.6 (9.4-12.4) fL Absolute Nucleated RBC 0.08 (0.00-0.12) K/uL Nucleated RBC % (auto) 0.3 % Sodium (136-145) mmol/L Potassium (3.5-5.1) mmol/L Chloride (98-107) mmol/L Carbon Dioxide (21-32) mmol/L Anion Gap (3-11) BUN (6-23) mg/dl Creatinine (0.6-1.2) mg/dl Est Cr Clr Drug Dosing ml/min Est GFR ( Amer) ml/min Est GFR (Non-Af Amer) ml/min BUN/Creatinine Ratio (10-20) Glucose (70-99(Fasting)) mg/dl POC Glucose 106 H 127 H (70-99) mg/dl Calcium (8.6-10.3) mg/dl Phosphorus (2.5-4.9) mg/dl Magnesium (1.7-2.4) mg/dl Stl C. diff Tox B Gene (Neg) 04/30/23 Range/Units 12:22 WBC (4.8-10.8) K/ul RBC (4.20-5.40) M/uL Hgb (12.0-16.0) g/dl Hct (37.0-47.0) % MCV (80.0-100.0) fL MCH (25.0-34.0) pg MCHC (32.0-36.0) g/dL RDW Std Deviation (36.4-46.3) fL RDW Coeff of Frandy (11.5-14.5) % Plt Count (130-400) K/uL MPV (9.4-12.4) fL Absolute Nucleated RBC (0.00-0.12) K/uL Nucleated RBC % (auto) % Sodium (136-145) mmol/L Potassium (3.5-5.1) mmol/L Chloride (98-107) mmol/L Carbon Dioxide (21-32) mmol/L Anion Gap (3-11) BUN (6-23) mg/dl Creatinine (0.6-1.2) mg/dl Est Cr Clr Drug Dosing ml/min Est GFR ( Amer) ml/min Est GFR (Non-Af Amer) ml/min BUN/Creatinine Ratio (10-20) Glucose (70-99(Fasting)) mg/dl POC Glucose 138 H (70-99) mg/dl Calcium (8.6-10.3) mg/dl Phosphorus (2.5-4.9) mg/dl Magnesium (1.7-2.4) mg/dl Stl C. diff Tox B Gene (Neg)
--- NOTE | 2023-05-01 15:48 | Hospitalist Progress Note ---
Date of Service May 01, 2023 Assessment & Plan (1) Sepsis: (2) Pyelonephritis: (3) Headache: (4) Breast cancer: (5) Post-operative state: (6) DMII (diabetes mellitus, type 2): (7) Morbid obesity: (8) Mood disorder: Plan 56-year-old woman w/ past med history significant for hyperlipidemia, diabetes, history of COVID and long COVID and nocturnal hypoxemia, hypertension, GERD, dysplasia of cervix high-grade, plantar fasciitis, depression, triple-negative breast cancer started chemo s/p port placement 04/21. Initially septic thought to be secondary to pyelo given imaging findings despite lack of symptoms, however, patient's port site looks quite questionable with signs suggestive of infection with what appears to be slight dehiscence with considerable drainage and maceration of skin at presentation. She is being managed for the following: #Sepsis #?port site infection #Pyelonephritis 2/2 pansensitive proteus Meets criteria for sepsis with temp spike, tachycardia, leukocytosis, pyelonephritis She is resuscitated from a sepsis standpoint. Was on cefazolin, patient continued to feel unwell and had feverish/sweaty event overnight. WBC and procalcitonin uptrending. DC cefazolin 04/28-04/30, start Levaquin 04/30 Pt feeling better clinically, wbc still upending, ID consulted. Labs in AM, continue to monitor clinical response. await id recs. f/u w/ wound Cx and blood culture. So far no growth. #Noctural Hypoxia -?underlying ANASTASIA/OHS, overnight pulse ox + nocurnal hypoxia -Start 2L nocturnal O2 - OP sleep study #Hypertension chronic stable. HCTZ, losartan and amlodpine were held in setting of sepsis. -Continue to hold HCTZ given pressures stable and ongoing infectious process - resume BP meds gradually. #Triple-negative breast cancer S/p right lumpectomy Had first chemo last Thursday [employer] Follow-up with heme-onc #Diabetes II -chronic, well controlled per A1C on outpatient records. Monitor BSG while in the hospital and add insulin coverage if needed. Hold outpatient metformin and dulaglutide injections. #Hyperlipidemia chronic, stable. Cont Zetia per home regimen. #Depression chronic, stable. Cont Zoloft per home regimen. #Morbid obesity continues on Trulicity with comorbid DMII. Continued weight loss recommended. DVT prophylaxis Lovenox Full Code Dispo- telemetry, await bl cx and clinical improvement. await id eval Admission and Anticipated Discharge Date Admission Date: April 26, 2023 Subjective Patient was seen and examined at bedside. Patient was lying in bed, on room air, resting comfortably, not in any acute distress. Patient reports feeling better overnight, no further fevers paling or slightly. Has better appetite today. Though WBC is going up [? Recent Neulasta as an outpatient], clinically she feels better today. Patient with some improvement in her headache, improving pressure/pain sensation at port site. Physical Exam Physical Exam: GENERAL: Alert and oriented x3. NAD, on RA. HEENT: No pallor, no icterus. Pupils equal, round and reactive to light. Oral mucosa moist. NECK: No JVD, no neck masses. Left port site, w/ ecchymoses, no erythema/swelling noted. improving tenderness. HEART: S1 and S2 heard. Regular rate and rhythm. No murmur, no gallop. RESPIRATORY SYSTEM: Normal AP diameter. No accessory muscle use. No wheezing, no crackles. ABDOMEN: Soft, bowel sounds present, nontender, no distention. CENTRAL NERVOUS SYSTEM: No facial droop. Speech is clear. Obeys simple commands. Moves extremities. EXTREMITIES: No edema, no erythema seen. Results & Data Results & Data Vital Signs (Past 12 Hours) Vital Signs Temp Pulse Pulse Resp BP Pulse Ox O2 Del Method 05/01/23 15:23 85 05/01/23 15:22 37.0 C 74 18 116/76 95 Nasal Cannula 05/01/23 11:55 37.1 C 76 18 105/69 94 Nasal Cannula 05/01/23 08:00 Room Air 05/01/23 08:29 36.9 C 82 20 117/78 97 Room Air, Nasal Cannula 05/01/23 07:09 72 05/01/23 04:16 36.9 C 72 20 136/85 98 Nasal Cannula O2 Flow Rate 05/01/23 15:23 05/01/23 15:22 2 05/01/23 11:55 2 05/01/23 08:00 05/01/23 08:29 2 05/01/23 07:09 05/01/23 04:16 2 (3) Headache Headache chronicity pattern: acute headache Headache type: unspecified Intractability: not intractable Qualified Code(s): R51.9 - Headache, unspecified
[2023-05-01] MEDS: ADVANCED PROBIOTIC 1250 MG CAPSULE PO SCH (17:27)
[2023-05-02] MEDS: ACETAMINOPHEN 325 MG TAB PO PRN ×3 (03:30→19:30)
[2023-05-02 06:28] LABS: Hematocrit (blood only) 33.4 % (37.0-47.0); Hemoglobin 11.2 g/dl (12.0-16.0); Mean Corpuscular Hemoglobin 30.2 pg (25.0-34.0); Mean Corpuscular Hgb Conc 33.5 g/dL (32.0-36.0); Mean Platelet Volume 10.4 fL (9.4-12.4); Nucleated RBC # (auto) 0.05 K/uL (0.00-0.12); Nucleated RBC % (auto) 0.2 %; Platelet Count 232 K/uL (130-400); Red Blood Count 3.71 M/uL (4.20-5.40); White Blood Count 27.12 K/ul (4.8-10.8)
[2023-05-02] MEDS: ENOXAPARIN INJ 40 MG/0.4 ML SYR SQ SCH (08:01)
[2023-05-02] MEDS: ASCORBIC ACID 500 MG TAB PO SCH (08:01)
[2023-05-02] MEDS: amLODIPine BESYLATE 5 MG TAB PO SCH (08:01)
[2023-05-02] MEDS: FLUTICASONE PROPIONATE NA SPR 16 GM BTL NAE SCH (08:01)
[2023-05-02] MEDS: EZETIMIBE 10 MG TAB PO SCH (08:01)
[2023-05-02] MEDS: DOCUSATE SODIUM 100 MG CAP PO SCH ×2 (08:01→19:28)
[2023-05-02] MEDS: PANTOprazole 40 MG TAB PO SCH (08:02)
[2023-05-02] MEDS: SERTRALINE HCL 50 MG TABLET PO SCH (08:02)
[2023-05-02] MEDS: VIBEGRON 75 MG TAB PO SCH (08:02)
[2023-05-02] MEDS: LORATADINE 10 MG TAB PO SCH (08:02)
[2023-05-02] MEDS: LOSARTAN POTASSIUM 50 MG TAB PO SCH (08:02)
[2023-05-02] MEDS: CEROVITE ADV FORMULA TAB PO SCH (08:02)
[2023-05-02] MEDS: FLUTICASONE/VILANTEROL 200/25MCG 14 PUFFS/INHALER INH SCH (08:02)
[2023-05-02] MEDS: ADVANCED PROBIOTIC 1250 MG CAPSULE PO SCH (08:02)
[2023-05-02] MEDS: levoFLOXacin/D5W 750 MG/150 ML BAG IV SCH (10:19)
--- NOTE | 2023-05-02 16:08 | Hospitalist Progress Note ---
Date of Service May 02, 2023 Assessment & Plan (1) Sepsis: (2) Pyelonephritis: (3) Headache: (4) Breast cancer: (5) Post-operative state: (6) DMII (diabetes mellitus, type 2): (7) Morbid obesity: (8) Mood disorder: Plan 56-year-old woman w/ past med history significant for hyperlipidemia, diabetes, history of COVID and long COVID and nocturnal hypoxemia, hypertension, GERD, dysplasia of cervix high-grade, plantar fasciitis, depression, triple-negative breast cancer started chemo s/p port placement 04/21. Initially septic thought to be secondary to pyelo given imaging findings despite lack of symptoms, however, patient's port site looks quite questionable with signs suggestive of infection with what appears to be slight dehiscence with considerable drainage and maceration of skin at presentation. She is being managed for the following: #Sepsis #?port site infection #Pyelonephritis 2/ pansensitive proteus Meets criteria for sepsis with temp spike, tachycardia, leukocytosis, pyelonephritis (on CTAP) She is resuscitated from a sepsis standpoint. Was on cefazolin, patient continued to feel unwell and had feverish/sweaty event overnight 04/29 - 04/30. WBC and procalcitonin uptrending. ? recent neulasta for wbc uptrends DC cefazolin 04/28-04/30, start Levaquin 04/30 Pt feeling better clinically since levaquin started, wbc slightly downtrending today, ID consulted. Labs in AM, continue to monitor clinical response. await id recs. f/u w/ wound Cx and blood culture. So far no growth. #Noctural Hypoxia -?underlying ANASTASIA/OHS, overnight pulse ox + nocurnal hypoxia -Start 2L nocturnal O2 - OP sleep study #Hypertension chronic stable. HCTZ, losartan and amlodpine were held in setting of sepsis. c/w home bp meds as able. #Triple-negative breast cancer S/p right lumpectomy Had first chemo last Thursday [employer] Follow-up with heme-onc #Diabetes II -chronic, well controlled per A1C on outpatient records. Monitor BSG while in the hospital and add insulin coverage if needed. Hold outpatient metformin and dulaglutide injections. #Hyperlipidemia chronic, stable. Cont Zetia per home regimen. #Depression chronic, stable. Cont Zoloft per home regimen. #Morbid obesity continues on Trulicity with comorbid DMII. Continued weight loss recommended. DVT prophylaxis Lovenox Full Code Dispo- telemetry, await bl cx and clinical improvement. await id eval Admission and Anticipated Discharge Date Admission Date: April 26, 2023 Subjective Patient was seen and examined at bedside. Patient was lying in bed, on room air, resting comfortably, not in any acute distress. Patient reports feeling better overnight, no further fevers or sweaty feeling. Appetite improving Though WBC is going up [? Recent Neulasta as an outpatient x1], clinically she feels better since yesterday. Patient with some improvement in her headache, improving pressure/pain sensation at port site. Physical Exam Physical Exam: GENERAL: Alert and oriented x3. NAD, on RA. HEENT: No pallor, no icterus. Pupils equal, round and reactive to light. Oral mucosa moist. NECK: No JVD, no neck masses. Left port site, w/ ecchymoses, no erythema/swelling noted. improving tenderness. HEART: S1 and S2 heard. Regular rate and rhythm. No murmur, no gallop. RESPIRATORY SYSTEM: Normal AP diameter. No accessory muscle use. No wheezing, no crackles. ABDOMEN: Soft, bowel sounds present, nontender, no distention. CENTRAL NERVOUS SYSTEM: No facial droop. Speech is clear. Obeys simple commands. Moves extremities. EXTREMITIES: No edema, no erythema seen. Results & Data Results & Data Vital Signs (Past 12 Hours) Vital Signs Temp Pulse Pulse Resp BP Pulse Ox O2 Del Method 05/02/23 15:15 36.9 C 81 20 114/76 98 Nasal Cannula 05/02/23 15:03 89 05/02/23 11:13 37.1 C 86 18 133/85 96 Nasal Cannula 05/02/23 09:00 74 05/02/23 07:40 37.0 C 67 18 118/79 96 Nasal Cannula 05/02/23 07:31 Nasal Cannula O2 Flow Rate 05/02/23 15:15 2 05/02/23 15:03 05/02/23 11:13 2 05/02/23 09:00 05/02/23 07:40 2 05/02/23 07:31 2 (3) Headache Headache chronicity pattern: acute headache Headache type: unspecified Intractability: not intractable Qualified Code(s): R51.9 - Headache, unspecified
[2023-05-03 05:19] LABS: Hematocrit (blood only) 35.2 % (37.0-47.0); Mean Corpuscular Hemoglobin 30.5 pg (25.0-34.0); Mean Corpuscular Hgb Conc 34.1 g/dL (32.0-36.0); Mean Corpuscular Volume 89.6 fL (80.0-100.0); Mean Platelet Volume 10.5 fL (9.4-12.4); Nucleated RBC # (auto) 0.05 K/uL (0.00-0.12); Nucleated RBC % (auto) 0.2 %; Platelet Count 205 K/uL (130-400); RDW Coefficient of Variation 14.1 % (11.5-14.5); RDW Standard Deviation 44.8 fL (36.4-46.3); Red Blood Count 3.93 M/uL (4.20-5.40); White Blood Count 22.88 K/ul (4.8-10.8)
[2023-05-03] MEDS: ACETAMINOPHEN 325 MG TAB PO PRN (07:16)
[2023-05-03] MEDS: ENOXAPARIN INJ 40 MG/0.4 ML SYR SQ SCH (08:00)
[2023-05-03] MEDS: ASCORBIC ACID 500 MG TAB PO SCH (08:00)
[2023-05-03] MEDS: DOCUSATE SODIUM 100 MG CAP PO SCH (08:00)
[2023-05-03] MEDS: amLODIPine BESYLATE 5 MG TAB PO SCH (08:00)
[2023-05-03] MEDS: CEROVITE ADV FORMULA TAB PO SCH (08:01)
[2023-05-03] MEDS: SERTRALINE HCL 50 MG TABLET PO SCH (08:01)
[2023-05-03] MEDS: LORATADINE 10 MG TAB PO SCH (08:01)
[2023-05-03] MEDS: ADVANCED PROBIOTIC 1250 MG CAPSULE PO SCH (08:01)
[2023-05-03] MEDS: PANTOprazole 40 MG TAB PO SCH (08:01)
[2023-05-03] MEDS: FLUTICASONE/VILANTEROL 200/25MCG 14 PUFFS/INHALER INH SCH (08:01)
[2023-05-03] MEDS: EZETIMIBE 10 MG TAB PO SCH (08:01)
[2023-05-03] MEDS: LOSARTAN POTASSIUM 50 MG TAB PO SCH (08:01)
[2023-05-03] MEDS: FLUTICASONE PROPIONATE NA SPR 16 GM BTL NAE SCH (08:01)
[2023-05-03] MEDS: VIBEGRON 75 MG TAB PO SCH (08:02)
--- NOTE | 2023-05-03 08:39 | Hospitalist Progress Note ---
Date of Service May 03, 2023 Assessment & Plan (1) Sepsis: (2) Pyelonephritis: (3) Headache: (4) Breast cancer: (5) Post-operative state: (6) DMII (diabetes mellitus, type 2): (7) Morbid obesity: (8) Mood disorder: Plan 56-year-old woman w/ past med history significant for hyperlipidemia, diabetes, history of COVID and long COVID and nocturnal hypoxemia, hypertension, GERD, dysplasia of cervix high-grade, plantar fasciitis, depression, triple-negative breast cancer started chemo s/p port placement 04/21. Initially septic thought to be secondary to pyelo given imaging findings despite lack of symptoms, however, patient's port site looks quite questionable with signs suggestive of infection with what appears to be slight dehiscence with considerable drainage and maceration of skin at presentation. She is being managed for the following: #Sepsis #?port site infection #Pyelonephritis 2/ pansensitive proteus Meets criteria for sepsis with temp spike, tachycardia, leukocytosis, pyelonephritis (on CTAP) She is resuscitated from a sepsis standpoint. Was on cefazolin, patient continued to feel unwell and had feverish/sweaty event overnight 04/29 - 04/30. WBC and procalcitonin uptrending. ? recent neulasta for wbc uptrends DC cefazolin 04/28-04/30, start Levaquin 04/30 Pt feeling better clinically since levaquin started, wbc slightly downtrending today, ID consulted. Labs in AM, continue to monitor clinical response. await id recs. f/u w/ wound Cx and blood culture. So far no growth. #Noctural Hypoxia -?underlying ANASTASIA/OHS, overnight pulse ox + nocurnal hypoxia -Start 2L nocturnal O2 - OP sleep study #Hypertension chronic stable. HCTZ, losartan and amlodpine were held in setting of sepsis. c/w home bp meds as able. 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 Monitor BSG while in the hospital and add insulin coverage if needed. Hold outpatient metformin and dulaglutide injections. #Hyperlipidemia chronic, stable. Cont Zetia per home regimen. #Depression chronic, stable. Cont Zoloft per home regimen. #Morbid obesity continues on Trulicity with comorbid DMII. Continued weight loss recommended. DVT prophylaxis Lovenox Full Code Dispo- telemetry, await bl cx and clinical improvement. await id eval Admission and Anticipated Discharge Date Admission Date: April 26, 2023 Subjective Patient was seen and examined at bedside. Patient was lying in bed, on room air, resting comfortably, not in any acute distress. Patient reports feeling better overnight, no further fevers or sweaty feeling. Appetite improving Though WBC is going up [? Recent Neulasta as an outpatient x1], clinically she feels better since yesterday. Patient with some improvement in her headache, improving pressure/pain sensation at port site. Physical Exam Physical Exam: CONSTITUTIONAL: obese, vitals as above, generally well-appearing, NAD EYES: normal conjunctivae, no scleral icterus, ENT: external ear and nose normal,MMM NECK: trachea midline, RESPIRATORY: clear to auscultation bilaterally, no crackles, rales or wheezes, normal respiratory effort CARDIOVASCULAR: regular rate and rhythm, S1 and 2 heard without murmurs, gallops or rubs, no JVD, no peripheral edema CHEST: tunneled catheter incision site with some expected post op swelling, ecchymosis and TTP. No fluctuance that would be suggestive of an abscess and no erythema present. GASTROINTESTINAL: soft, nontender, ND, no guarding, no CVA tenderness. MUSCULOSKELETAL: strength 5/5 throughout, head is normocephalic and atraumatic SKIN: warm and dry, NEUROLOGIC: CN 2-12 grossly intact, no sensory deficit, normal cognition, normal speech, no tremor PSYCHIATRIC: alert cooperative and oriented to person, place and time. Euthymic mood, makes good eye contact, language grossly intact, recent and remote memory grossly intact. Results & Data Results & Data Vital Signs (Past 12 Hours) Vital Signs Temp Pulse Pulse Resp BP Pulse Ox O2 Del Method 05/03/23 07:41 36.8 C 80 18 120/80 97 Room Air 05/03/23 07:32 Room Air 05/03/23 05:27 36.9 C 74 18 115/76 97 Room Air 05/02/23 22:00 73 05/02/23 20:58 Room Air Laboratory Results Short CBC 05/03/23 Range/Units 04:32 WBC 22.88 H (4.8-10.8) K/ul Hgb 12.0 (12.0-16.0) g/dl Hct 35.2 L (37.0-47.0) % Plt Count 205 (130-400) K/uL Medications Administered Current Inpatient Medications Acetaminophen (Acetaminophen 325 Mg Tab) 650 mg PO Q4H PRN PRN Reason: Pain or Fever Stop: 05/27/23 00:26 Last Admin: 05/03/23 07:16 Dose: 650 mg Albuterol (Albuterol Hfa 8 Gm Inhaler) 2 puffs INH Q6H PRN PRN Reason: Shortness Of Breath Or Wheezin Stop: 05/27/23 00:26 Amlodipine Besylate (Amlodipine Besylate 5 Mg Tab) 5 mg PO QAM [facility] Stop: 05/31/23 08:59 Last Admin: 05/03/23 08:00 Dose: 5 mg Ascorbic Acid (Ascorbic Acid 500 Mg Tab) 500 mg PO QAM [facility] Stop: 05/27/23 08:59 Last Admin: 05/03/23 08:00 Dose: 500 mg Baclofen (Baclofen 10 Mg Tab) 10 mg PO HS PRN PRN Reason: Muscle Relaxer Stop: 05/27/23 00:26 Dextrose (Dextrose 50% 50 Ml Syringe) 25 - 50 ml IV UD PRN; Protocol PRN Reason: Hypoglycemia Protocol Stop: 05/27/23 10:29 Docusate Sodium (Docusate Sodium 100 Mg Cap) 100 mg PO BID FABIANO Stop: 05/29/23 08:59 Last Admin: 05/03/23 08:00 Dose: 100 mg Ezetimibe (Ezetimibe 10 Mg Tab) 10 mg PO DAILY FABIANO Stop: 05/27/23 08:59 Last Admin: 05/03/23 08:01 Dose: 10 mg Enoxaparin Sodium (Enoxaparin Inj 40 Mg/0.4 Ml Syr) 40 mg SQ Q24H FABIANO Stop: 05/27/23 08:59 Last Admin: 05/03/23 08:00 Dose: 40 mg Fluticasone Propionate (Fluticasone Propionate Na Spr 16 Gm Btl) 2 sprays MIKE DAILY FABIANO Stop: 05/27/23 08:59 Last Admin: 05/03/23 08:01 Dose: 2 sprays Fluticasone/Vilanterol (Fluticasone/Vilanterol 200/25mcg 14 Puffs/Inhaler) 1 puffs INH DAILY FABIANO Stop: 05/27/23 08:59 Last Admin: 05/03/23 08:01 Dose: 1 puffs Glucagon (Glucagon For Inj 1 Mg Vial) 1 mg SQ UD PRN; Protocol PRN Reason: Hypoglycemia Protocol Stop: 05/27/23 10:29 Glucose (Glucose 40% Gel 15 Gm Tube) 15 - 30 gm PO UD PRN; Protocol PRN Reason: Hypoglycemia Protocol Stop: 05/27/23 10:29 Glucose (Glucose 10 Tab/Tube) 4 - 8 tab PO UD PRN; Protocol PRN Reason: Hypoglycemia Treatment Stop: 05/27/23 10:29 Hydrochlorothiazide (Hydrochlorothiazide 25 Mg Tab) 25 mg PO QAM FABIANO Stop: 06/02/23 08:59 Last Admin: 05/03/23 08:01 Dose: 25 mg Levofloxacin/Dextrose (Levaquin/D5w) 750 mg in 150 mls @ 100 mls/hr IV Q24H FABIANO; Protocol Stop: 05/10/23 10:59 Last Infusion: 05/02/23 12:08 Dose: Infused Ketorolac Tromethamine (Ketorolac Tromethamine 15 Mg/Ml Vial) 10 mg IV Q8H PRN PRN Reason: headache Stop: 05/04/23 19:09 Last Admin: 05/01/23 10:56 Dose: 10 mg Lactobacillus Acidophilus (Advanced Probiotic 1250 Mg Capsule) 2 cap PO DAILY FABIANO Stop: 05/31/23 15:59 Last Admin: 05/03/23 08:01 Dose: 2 cap Loratadine (Loratadine 10 Mg Tab) 10 mg PO DAILY FABIANO Stop: 05/27/23 08:59 Last Admin: 05/03/23 08:01 Dose: 10 mg Lorazepam (Lorazepam 0.5 Mg Tab) 0.5 mg PO DAILY PRN PRN Reason: Anxiety Stop: 05/27/23 00:26 Last Admin: 04/27/23 17:00 Dose: 0.5 mg Losartan Potassium (Losartan Potassium 50 Mg Tab) 100 mg PO QAM FABIANO Stop: 05/31/23 08:59 Last Admin: 05/03/23 08:01 Dose: 100 mg Miscellaneous (Carbohydrates For Hypoglycemia ) 15 - 30 gm PO UD PRN PRN Reason: Hypoglycemia Protocol Stop: 05/27/23 10:29 Morphine Sulfate (Morphine Sulfate 4 Mg/Ml 1 Ml Carp\Vial) 3 mg IV Q3H PRN PRN Reason: Pain Stop: 05/11/23 00:26 Last Admin: 04/29/23 11:58 Dose: 3 mg Multi-Ingredient Mouthwash/Gargle (First - Mouthwash Blm 119 Ml) 10 ml PO Q4H PRN PRN Reason: Mouth sore pain Stop: 05/27/23 00:42 Multivitamins/Minerals (Cerovite Adv Formula Tab) 1 tab PO QAM FABIANO Stop: 05/27/23 08:59 Last Admin: 05/03/23 08:01 Dose: 1 tab Nitroglycerin (Nitroglycerin Sl 0.4 Mg/Tab Tab) 0.4 mg SL Q5M PRN PRN Reason: Chest Pain Stop: 05/27/23 00:26 Ondansetron HCl (Ondansetron Inj 2 Mg/Ml 2 Ml Vial) 4 mg IV Q6H PRN PRN Reason: Nausea Stop: 05/27/23 00:26 Last Admin: 04/30/23 13:06 Dose: 4 mg Pantoprazole Sodium (Pantoprazole 40 Mg Tab) 40 mg PO QAM FABIANO Stop: 05/27/23 08:59 Last Admin: 05/03/23 08:01 Dose: 40 mg Polyethylene Glycol (Polyethylene (Miralax) 17 Gm Pack) 17 gm PO DAILY PRN PRN Reason: Constipation Stop: 05/29/23 08:14 Last Admin: 04/30/23 10:37 Dose: 17 gm Sertraline HCl (Sertraline Hcl 50 Mg Tablet) 25 mg PO DAILY FABIANO Stop: 05/27/23 08:59 Last Admin: 05/03/23 08:01 Dose: 25 mg Vibegron (Vibegron 75 Mg Tab) 75 mg PO DAILY FABIANO Stop: 05/27/23 08:59 Last Admin: 05/03/23 08:02 Dose: 75 mg Vitamin D (Cholecalciferol 5,000 Units 125 Mcg Tab) 5,000 units PO MoWeFr@0900 FABIANO Stop: 05/27/23 08:59 Last Admin: 05/01/23 08:23 Dose: 5,000 units Zinc Sulfate (Zinc Sulfate 220 Mg Capsule) 220 mg PO MoWeFr@0900 [facility] Stop: 05/27/23 08:59 Last Admin: 05/01/23 08:24 Dose: 220 mg (3) Headache Headache chronicity pattern: acute headache Headache type: unspecified Intractability: not intractable Qualified Code(s): R51.9 - Headache, unspecified
[2023-05-03] MEDS ORDERED: hydroCHLOROthiazide 25 MG TAB PO SCH (09:00)
[2023-05-03] MEDS: levoFLOXacin/D5W 750 MG/150 ML BAG IV SCH (10:11)
--- NOTE | 2023-05-03 11:20 | Discharge Summary ---
Discharge Summary Date of Service May 03, 2023 Admission HPI Per Admitting Provider 56-year-old female past med history significant for hyperlipidemia, diabetes, history of COVID and long COVID and nocturnal hypoxemia, hypertension, GERD, dysplasia of cervix high-grade, plantar fasciitis, depression, triple-negative breast cancer started chemo last Thursday presents with headache, nausea and fevers. Patient states since chemo last Thursday states she is having a lot of headaches and nausea and today she developed fevers which prompted her to come to the ER. Also having right groin pain. No hematuria. No runny nose or sore throat or cough. No difficulty swallowing. No chest pain or shortness of breath. In the ER when she came in was tachycardic and hypoxic and and had temp spike. Currently resting comfortably ,saturating okay on 2 L. Past medical history as mentioned above Past surgical history. Right axilla lymph node biopsy. Cholecystectomy. Colonoscopy. Colposcopy. EGD. Hysteroscopy with endometrial ablation. D&C. Right partial mastectomy. Social history. Former smoker quit smoking in 1985. Smokes 0.01 pack a day for 2 years. Alcohol rarely. No drug use. Family history. Father had lung cancer. Mother had GERD. Uterine cancer. Brother has arthritis. Daughter has asthma. Son has asthma. Principal Dx & Hospital Course #1 = Principal Diagnosis Updated Medication List Medication Instructions Recorded Confirmed Type acetaminophen 500 mg tablet 1,000 mg PO Q6H PRN Pain 06/09/20 04/26/23 History (Tylenol Extra Strength) amlodipine 5 mg tablet 5 mg PO QAM 06/09/20 04/26/23 History ascorbic acid (vitamin C) 500 mg 500 mg PO QAM 06/09/20 04/26/23 History tablet (Vitamin C) baclofen 10 mg tablet 10 mg PO HS PRN Muscle Relaxer 06/09/20 04/26/23 History cholecalciferol (vitamin D3) 125 125 mcg PO 3XWK 06/09/20 04/26/23 History mcg (5,000 unit) tablet (Vitamin D3) hydrochlorothiazide 25 mg tablet 25 mg PO QAM 06/09/20 04/26/23 History ibuprofen 200 mg tablet 800 mg PO Q8H PRN Pain 06/09/20 04/26/23 History losartan 100 mg tablet 100 mg PO QAM 06/09/20 04/26/23 History multivitamin with minerals-folic 1 tab PO QAM 06/09/20 04/26/23 History acid 0.4 mg tablet (One Daily Womens 50 Plus) omeprazole 20 mg tablet,delayed 20 mg PO QAM 06/09/20 04/26/23 History release zinc 50 mg tablet 50 mg PO 3XWK 06/09/20 04/26/23 History albuterol sulfate 90 mcg/actuation 2 puff inhalation Q6H PRN 01/22/23 04/26/23 History aerosol inhaler (Ventolin HFA) Shortness Of Breath Or Wheezing budesonide-formoterol HFA 160 1 inh inhalation BID 01/22/23 04/26/23 History mcg-4.5 mcg/actuation aerosol inhaler (Symbicort) dulaglutide 1.5 mg/0.5 mL 1.5 mg subcut .WEEKLY 01/22/23 04/26/23 History subcutaneous pen injector (Trulicity) ezetimibe 10 mg tablet 10 mg PO DAILY 01/22/23 04/26/23 History loratadine 10 mg tablet 10 mg PO DAILY 01/22/23 04/26/23 History metformin 500 mg tablet 500 mg PO DAILY 01/22/23 04/26/23 History mirabegron 50 mg tablet,extended 50 mg PO DAILY 01/22/23 04/26/23 History release 24 hr (Myrbetriq) mometasone 50 mcg/actuation nasal 2 spray intranasal DAILY 01/22/23 04/26/23 History spray Maalox/Benadryl/Lidocaine 10 ml PO .Q3-4HRS PRN Mouth sore 04/26/23 04/26/23 History pain lorazepam 0.5 mg tablet 0.5 mg PO DIRECTED PRN Anxiety 04/26/23 04/26/23 History sertraline 25 mg tablet 25 mg PO DAILY 04/26/23 04/26/23 History levofloxacin 750 mg tablet 750 mg PO DAILY #3 tabs 05/03/23 Rx Hospital Stay Data Consultations 04/26/23 22:37 ED Decision to Admit Stat 04/28/23 11:01 Consult General Surgery Routine 05/01/23 08:41 Consult Infectious Diseases Routine Diagnostic Imagining Performed 04/26/23 20:02 CT angio chest PE protocol Stat 04/26/23 20:08 CT head/brain wo con Stat 04/26/23 20:11 CT abd pelvis IV con only Stat Pending Results Patient Have Any Pending Studies at Discharge: No Discharge Instructions Given to Patient (Per Discharging Provider) Please take all medications as instructed on discharge list below. You will need an additional 3 days of Levaquin to start tomorrow. Please ensure you followup with your primary care provider within one week of returning home. It was a pleasure taking care of you! Please call if you have any questions or problems. You can reach a [facility] hospitalist on duty at [facility] 24 hours a day by calling [phone]. Take care of yourself. Patricia Rodriguez, Kaiser Martinez Medical Centerist
== END 2023-05-03 12:47 | disposition home or self-care (01) | DRG 314 ==
LOC: ED 19:21 → SUATTDRO 23:41 → EDINP 23:41 → 2W 04-27 21:10